=== PATIENT | male | born 1985 | race American Indian/Alaskan Native ===

== ENCOUNTER 2018-12-19 13:30 | Emergency (ER) | payer OTHER ==
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
[2018-12-19 13:36] VITALS: BP 141/89; PULSE 62
[2018-12-19] MEDS: Ondansetron 4 MG/2 ML SDV IV ONE ×2 (13:47→14:23)
[2018-12-19] MEDS: HYDROmorphone 1 MG/ML Syringe IVPUSH ONE (13:47)
[2018-12-19] MEDS: Famotidine 20 MG/2 ML SDV IVPUSH ONE (13:47)
[2018-12-19] MEDS: Sodium Chloride 0.9% 1,000 ML IV ONE (13:48)
[2018-12-19] MEDS: Metoclopramide 10 MG/2 ML SDV IVPUSH ONE (13:58)
[2018-12-19] MEDS: diphenhydrAMINE 50 MG/ML SDV IVPUSH ONE (13:58)
[2018-12-19 14:12] LABS: ANION GAP 14.9; CHLORIDE,CL 103 mmol/L (101-111); SODIUM,NA 136 mmol/L (135-145)
[2018-12-19] MEDS: LORazepam 2 MG/ML Syringe IVPUSH ONE (14:21)
== END 2018-12-19 16:50 | disposition home or self-care (01) ==
LOC: DL.ED 13:30
DX: K22.8 Other specified diseases of esophagus (principal); K29.00 Acute gastritis without bleeding; I10 Essential (primary) hypertension; E11.9 Type 2 diabetes mellitus without complications; Z79.4 Long term (current) use of insulin; Z79.899 Other long term (current) drug therapy
CPT/HCPCS: 36415; 71045; 80053; 80305; 80320; 81001; 82009; 82150; 82962; 83690; 84484; 85025; 85610; 85730; 93005; 96361; 96374; 96375; 96376; 99285; J1170; J1200; J2060; J2405; J2765; J3490; J7030; 93010; 99284; G0480

== ENCOUNTER 2019-03-13 14:08 | Emergency (ER) | payer OTHER ==
[2019-03-13] MEDS ORDERED: HYDROmorphone 1 MG/ML Syringe IVPUSH ONE (14:15)
[2019-03-13] MEDS ORDERED: Ondansetron 4 MG/2 ML SDV IV ONE ×2 (14:15→14:36)
[2019-03-13] MEDS ORDERED: Sodium Chloride 0.9% 1,000 ML IV ONE (14:15)
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
[2019-03-13] MEDS ORDERED: Sodium Chloride 0.9% 10 ML Syringe FLUSH PRN (14:16)
[2019-03-13] MEDS ORDERED: Famotidine 20 MG/2 ML SDV IVPUSH ONE (14:27)
[2019-03-13 14:56] VITALS: BP 133/68; PULSE 93
[2019-03-13 15:11] LABS: ANION GAP 18.4; CHLORIDE,CL 93 mmol/L (101-111); SODIUM,NA 127 mmol/L (135-145)
[2019-03-13] MEDS ORDERED: Insulin Regular, Human 100 Units/ML 3 ML Vial SUBCUT ONE (15:14)
[2019-03-13] MEDS ORDERED: HYDROmorphone 0.5 MG/0.5 ML Syringe SUBCUT ONE (16:09)
[2019-03-13] MEDS ORDERED: Promethazine 25 MG/ML SDV IM ONE (16:09)
== END 2019-03-13 16:37 | disposition home or self-care (01) ==
LOC: DL.ED 14:08
DX: R10.13 Epigastric pain (principal); L73.9 Follicular disorder, unspecified; B96.89 Other specified bacterial agents as the cause of diseases classified elsewhere; R11.2 Nausea with vomiting, unspecified; E11.65 Type 2 diabetes mellitus with hyperglycemia; I10 Essential (primary) hypertension; E11.9 Type 2 diabetes mellitus without complications; Z79.4 Long term (current) use of insulin; Z79.899 Other long term (current) drug therapy
CPT/HCPCS: 36415; 80053; 80305-QW; 81001; 82009; 82150; 82962; 83605; 83690; 85025; 96361; 96372; 96374; 96375; 99284-25; J1170; J1815-GY; J2405; J2550; J3490; J7030

== ENCOUNTER 2019-03-14 16:02 | Emergency (ER) | payer OTHER ==
[2019-03-14] MEDS ORDERED: Ondansetron 4 MG/2 ML SDV IV ONE (16:10)
[2019-03-14] MEDS ORDERED: Sodium Chloride 0.9% 10 ML Syringe FLUSH PRN (16:10)
[2019-03-14] MEDS ORDERED: diphenhydrAMINE 50 MG/ML SDV IVPUSH ONE (16:10)
[2019-03-14] MEDS ORDERED: Sodium Chloride 0.9% 1,000 ML IV ONE ×2 (16:10→18:46)
[2019-03-14] MEDS ORDERED: LORazepam 2 MG/ML SDV IVPUSH ONE (16:10)
[2019-03-14] MEDS ORDERED: Dicyclomine 20 MG/2 ML SDV IM ONE (16:12)
[2019-03-14 16:45] LABS: CHLORIDE,CL 97 mmol/L (101-111); SODIUM,NA 130 mmol/L (135-145)
[2019-03-14] MEDS ORDERED: Insulin Regular, Human 100 Units/ML 3 ML Vial SUBCUT ONE (17:07)
[2019-03-14] MEDS ORDERED: Iopamidol 612 MG/ML 100 ML Bottle IVPUSH ONE (18:46)
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
[2019-03-14 19:29] LABS: BASE EXCESS VENOUS -2.4 mmol/l ((-2)-(+3)); BICARBONATE,VENOUS 20 mmol/l (19-25); O2 DELIVERY DEVICE ROOM AIR; O2 SATURATION VENOUS 66.6 % (60-80); PCO2 VENOUS 28 mmHg (41-51); PH,VENOUS 7.46 (7.31-7.41); PO2 VENOUS 38 mmHg (35-42)
[2019-03-14] MEDS ORDERED: Haloperidol Lactate 5 MG/ML SDV IVPUSH ONE ×2 (19:58→21:08)
[2019-03-14] MEDS ORDERED: NS + KCl 20mEq/L 1,000 ML IV SCH (20:15)
[2019-03-14 20:21] VITALS: BP 158/89; PULSE 79
[2019-03-14 20:43] LABS: ANION GAP 13.7; CHLORIDE,CL 104 mmol/L (101-111); SODIUM,NA 134 mmol/L (135-145)
[2019-03-14] MEDS ORDERED: Sodium Chloride 0.9% with KCl 1,000 ML IV SCH (21:00)
== END 2019-03-14 21:26 ==
LOC: DL.ED 16:02
DX: E11.10 Type 2 diabetes mellitus with ketoacidosis without coma (principal); I10 Essential (primary) hypertension; Z79.4 Long term (current) use of insulin
CPT/HCPCS: 36415; 74177; 80048; 80053; 80305; 80320; 81001; 82009; 82150; 82803; 82962; 83605; 83690; 83930; 85025; 96361; 96365; 96372; 96375; 96376; 99285; J0500; J1200; J1630; J1815; J2060; J2405; J3480; J7030; Q9967; 99284; G0480

== ENCOUNTER 2019-05-22 22:17 | Emergency (ER) | payer MEDICAID, OTHER ==
[~2019-05-22 22:17] MED LIST: Metoclopramide 10 MG/2 ML SDV IVPUSH ONE; Sodium Chloride 0.9% 1,000 ML IV ONE
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
[2019-05-22 22:49] LABS: ALLEN TEST PERFORMED; BASE EXCESS ARTERIAL -12 mmol/L ((-2)-(+3)); BICARBONATE,ARTERIAL 12.6 mmol/L (22-26); O2 DELIVERY DEVICE ROOM AIR; O2 SATURATION ARTERIAL 97 % (95-100); PCO2 ARTERIAL 27 mmHg (35-45); PO2 ARTERIAL 93 mmHg (70-100)
[2019-05-22 22:50] LABS: ACETAMINOPHEN 0 ug/mL (10-30 (Therapeutic))
[2019-05-22 22:58] LABS: ANION GAP 29.4 mEq/L (7-13)
[2019-05-22] MEDS ORDERED: Sodium Chloride 0.9% 1,000 ML IV ONE (23:18)
[2019-05-22] MEDS ORDERED: Pantoprazole 40 MG Vial IVPUSH ONE (23:35)
[2019-05-23] MEDS ORDERED: HYDROmorphone 0.5 MG/0.5 ML Syringe IVPUSH ONE (00:11)
[2019-05-23 00:12] VITALS: BP 160/99; PULSE 101
== END 2019-05-23 01:10 ==
LOC: DL.ED 22:17
DX: E11.10 Type 2 diabetes mellitus with ketoacidosis without coma (principal); K92.2 Gastrointestinal hemorrhage, unspecified; I10 Essential (primary) hypertension; Z77.22 Contact with and (suspected) exposure to environmental tobacco smoke (acute) (chronic); Z79.4 Long term (current) use of insulin; Z79.899 Other long term (current) drug therapy
CPT/HCPCS: 36415; 36600; 74176; 80053; 80305-QW; 80307; 81001; 82009; 82150; 82271; 82803; 82962; 83605; 83690; 85025; 87040; 87804; 96361; 96374; 96375; 99285-25; C9113; J1170; J1815-GY; J2765; J7030; J7050

== ENCOUNTER 2019-12-19 23:48 | Emergency (ER) | payer MEDICAID, OTHER ==
[2019-12-19] MEDS ORDERED: Sodium Chloride 0.9% 1,000 ML IV ONE (23:55)
[2019-12-19] MEDS ORDERED: Ondansetron 4 MG/2 ML SDV IVPUSH ONE (23:55)
[2019-12-20 00:01] VITALS: BP 131/102; PULSE 84
[2019-12-20] MEDS ORDERED: Insulin Regular, Human 100 Units/ML 3 ML Vial IV ONE (00:09)
[2019-12-20] MEDS ORDERED: Glucagon,Human Recombinant 1 MG Vial IM PRN (00:09)
[2019-12-20] MEDS ORDERED: 50% Dextrose in Water 50 ML Syringe IV PRN (00:09)
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
[2019-12-20 00:35] LABS: ANION GAP 13.7 mEq/L (7-13); CHLORIDE,CL 89 mmol/L (98-107); SODIUM,NA 126 mmol/L (136-145)
[2019-12-20] MEDS ORDERED: Promethazine 25 MG/ML SDV IM ONE (00:51)
[2019-12-20] MEDS ORDERED: HYDROmorphone 0.5 MG/0.5 ML Syringe IVPUSH ONE (00:52)
[2019-12-20] MEDS ORDERED: Sodium Chloride 0.9% 1,000 ML IV ONE ×2 (01:53→03:06)
[2019-12-20 03:57] LABS: ANION GAP 8.9 mEq/L (7-13); CHLORIDE,CL 102 mmol/L (98-107); SODIUM,NA 138 mmol/L (136-145)
[2019-12-20 06:34] LABS: ANION GAP 13.3 mEq/L (7-13); CHLORIDE,CL 108 mmol/L (98-107); SODIUM,NA 142 mmol/L (136-145)
== END 2019-12-20 07:25 | disposition home or self-care (01) ==
LOC: DL.ED 23:48
DX: R11.2 Nausea with vomiting, unspecified (principal); F12.90 Cannabis use, unspecified, uncomplicated; E11.65 Type 2 diabetes mellitus with hyperglycemia; E11.10 Type 2 diabetes mellitus with ketoacidosis without coma; Z79.4 Long term (current) use of insulin
CPT/HCPCS: 36415; 80048; 80053; 80305; 80307; 82009; 82962; 83605; 85025; 93005; 96372; 96374; 96375; 99285; J1170; J1815; J2405; J2550; J7030

== ENCOUNTER 2019-12-25 04:37 | Emergency (ER) | payer MEDICAID, OTHER ==
[2019-12-25] MEDS ORDERED: Ondansetron 4 MG/2 ML SDV IVPUSH ONE (04:45)
[2019-12-25] MEDS ORDERED: Sodium Chloride 0.9% 1,000 ML IV ONE ×2 (04:45→07:23)
[2019-12-25 04:46] VITALS: BP 141/79
[2019-12-25] MEDS ORDERED: 50% Dextrose in Water 50 ML Syringe IV PRN ×2 (05:09→09:14)
[2019-12-25] MEDS ORDERED: Glucagon,Human Recombinant 1 MG Vial IM PRN ×2 (05:09→09:14)
[2019-12-25] MEDS ORDERED: Insulin Regular, Human 100 Units/ML 3 ML Vial IV ONE (05:09)
[2019-12-25 05:27] LABS: ANION GAP 22.1 mEq/L (7-13); CHLORIDE,CL 93 mmol/L (98-107); SODIUM,NA 132 mmol/L (136-145)
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
[2019-12-25 08:56] LABS: CHLORIDE,CL 100 mmol/L (98-107); SODIUM,NA 136 mmol/L (136-145)
[2019-12-25] MEDS ORDERED: Insulin Regular, Human 100 Units/ML 3 ML Vial SUBCUT ONE (09:14)
[2019-12-25 09:39] VITALS: PULSE 79
== END 2019-12-25 09:34 | disposition home or self-care (01) ==
LOC: DL.ED 04:37
DX: E10.10 Type 1 diabetes mellitus with ketoacidosis without coma (principal); E10.65 Type 1 diabetes mellitus with hyperglycemia; I10 Essential (primary) hypertension; F17.210 Nicotine dependence, cigarettes, uncomplicated; Z79.899 Other long term (current) drug therapy
CPT/HCPCS: 36415; 80048; 80053; 82009; 82150; 82962; 83605; 83690; 83735; 85025; 96374; 99284; J1815; J2405; J7030

== ENCOUNTER 2020-01-10 14:10 | Inpatient (IN) | payer MEDICAID, OTHER ==
[2020-01-10] MEDS ORDERED: Sodium Chloride 0.9% 10 ML Syringe FLUSH PRN (15:53)
[2020-01-10] MEDS ORDERED: Sodium Chloride 0.9% 1,000 ML IV ONE (15:54)
[2020-01-10] MEDS ORDERED: Ondansetron 4 MG/2 ML SDV IVPUSH ONE (15:54)
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
[2020-01-10 16:12] LABS: BASE EXCESS VENOUS 0.1 mmol/l ((-2)-(+3)); BICARBONATE,VENOUS 21 mmol/l (19-25); O2 DELIVERY DEVICE ROOM AIR; O2 SATURATION VENOUS 64.7 % (60-80); PCO2 VENOUS 26 mmHg (41-51); PH,VENOUS 7.52 (7.31-7.41); PO2 VENOUS 36 mmHg (35-42)
[2020-01-10 16:35] LABS: ANION GAP 19.8 mEq/L (7-13); CHLORIDE,CL 95 mmol/L (98-107); SODIUM,NA 132 mmol/L (136-145)
[2020-01-10] MEDS ORDERED: Promethazine 25 MG/ML SDV IM ONE (17:03)
[2020-01-10] MEDS ORDERED: Morphine 2 MG/ML SYRINGE IVPUSH PRN (18:27)
[2020-01-10] MEDS ORDERED: Acetaminophen 325 MG Tab PO PRN (18:27)
[2020-01-10] MEDS ORDERED: Ondansetron 4 MG Tab.DIS PO PRN (18:27)
[2020-01-10] MEDS ORDERED: Glucagon,Human Recombinant 1 MG Vial IM PRN (18:32)
[2020-01-10] MEDS ORDERED: 50% Dextrose in Water 50 ML Syringe IV PRN (18:32)
[2020-01-10] MEDS: Sodium Chloride 0.9% 1,000 ML IV SCH (18:55)
[2020-01-10] MEDS: oxyCODONE 5 MG Tab PO PRN (19:14)
--- NOTE | 2020-01-10 20:11 | HP ---
CHIEF COMPLAINT: Abdominal pain. HISTORY OF PRESENT ILLNESS: The patient is a 34-year-old male who was admitted through the emergency room because of abdominal pain and vomiting, which started the day after Thanksgiving 2 days ago. He has not been able to keep anything down since that time and he is complaining of abdominal pain, that he cannot stand it anymore. He is also diabetic, but has not checked his blood sugar for the last couple of weeks because his glucometer machine was broken. In the emergency room, the patient's blood sugar is 400 and lactic acid is 3. Sodium is 132 and chloride is 95. Because of the above and abdominal pain, the patient was admitted for further evaluation and management. PAST MEDICAL HISTORY: Remarkable for type 1 diabetes mellitus, history of hypertension, gastroesophageal reflux disease, history of kidney stone. FAMILY HISTORY: Noncontributory. SOCIAL HISTORY: The patient smokes cigarettes on a daily basis and admits to smoking marijuana and hash on occasions. REVIEW OF SYSTEMS: The patient denies any fever, chills, chest pain, shortness of breath, orthopnea, PND, nor any other complaints. HOME MEDICATIONS: Metformin 1 g b.i.d., ibuprofen, Levemir 30 units b.i.d., and lisinopril 10 mg daily. ALLERGIES: No known drug allergies. PHYSICAL EXAMINATION: General: The patient is alert, in mild distress from the abdominal pain. Vital Signs: Blood pressure is 147/86, pulse of 93, respirations of 16, temperature of 97.6, saturation is 100% on room air. SHEENT: Normocephalic. There are pink palpebral conjunctivae. Sclerae anicteric. No JVD. No lymphadenopathy. Neck: Supple. Heart: Regular rate and rhythm. Normal S1 and S2. No gallops. No rubs. Lungs: Equal bilaterally. No crackles, no wheezing. Abdomen: Soft. There is [id number] direct tenderness. No rebound. Bowel sounds positive. Extremities: Negative for any significant pedal edema. No calf tenderness. LABORATORY WORKUP: CBC: WBC 8.6, hemoglobin is 15.8, hematocrit is 43.8, platelets are 384. Urinalysis is remarkable for protein of 300 mg/dL and 500 of glucose and 80 of ketones. Urine drug screen is positive for marijuana, otherwise negative. Comp panel: Sodium is 132, chloride of 95, BUN of 36, creatinine is 1.29, glucose is 400, ALT of 215. The rest of the panel unremarkable, and lactic acid is 3. ADMITTING DIAGNOSES: 1. Uncontrolled diabetes mellitus. 2. Abdominal pain, possibly gastritis. 3. Hypertension. 4. Dehydration. TREATMENT PLAN: The patient is admitted to Acute Care General Medicine Floor. He will be started on IV fluids. He will be on IV Protonix. He will be on DVT prophylaxis and will be resumed on his insulin (Levemir as at home) and will also be on sliding scale insulin, and amylase and lipase were also sent. The patient is a full code. [facility] /[id number]
[2020-01-10] MEDS: Insulin Glarg,Human.Rec.Analog 100 Unit/ML SUBCUT SCH (20:43)
[2020-01-10] MEDS: Pantoprazole 40 MG Vial IVPUSH SCH (20:45)
[2020-01-11] MEDS: Sodium Chloride 0.9% 1,000 ML IV SCH ×3 (02:56→22:34)
[2020-01-11 06:34] LABS: ANION GAP 13.4 mEq/L (7-13); CHLORIDE,CL 102 mmol/L (98-107); SODIUM,NA 138 mmol/L (136-145)
[2020-01-11] MEDS: Insulin Lispro 100 Units/ML 3 ML Vial SUBCUT SCH ×3 (09:11→17:06)
[2020-01-11] MEDS: Nicotine 21 MG/24 Hr Patch TRDERM SCH (09:14)
[2020-01-11] MEDS: Enoxaparin 40 MG/0.4 ML Syringe SUBCUT SCH ×2 (09:16→09:25)
[2020-01-11] MEDS: Lisinopril 10 MG Tab PO SCH (09:16)
[2020-01-11] MEDS: Pantoprazole 40 MG Vial IVPUSH SCH ×2 (09:17→20:23)
[2020-01-11] MEDS: Docusate Sodium 100 MG Cap PO PRN (09:17)
[2020-01-11] MEDS: oxyCODONE 5 MG Tab PO PRN ×3 (09:17→20:21)
[2020-01-11] MEDS: Insulin Glarg,Human.Rec.Analog 100 Unit/ML SUBCUT SCH ×2 (10:44→21:23)
--- NOTE | 2020-01-11 10:51 | PN ---
DATE: 01/11/2020 SUBJECTIVE: The patient is a 34-year-old male who was admitted with uncontrolled diabetes mellitus and abdominal pain and dehydration. The patient this morning is feeling slightly better, although he is still complaining of some abdominal pain, but he denies any chest pain, shortness of breath, fever, chills, nor any other complaints. The patient is much more alert. LABORATORY DATA: Lab workup this morning, CBC; WBC 8.2, hemoglobin is 14.4, hematocrit 41.3, platelet is 346. Glucose is 275 (improvement), AST is 39, ALT is 161. The rest of the panel unremarkable. OBJECTIVE: Vital Signs: Blood pressure is 138/90, pulse of 65, respiration of 20, and saturation is 99%. SHEENT: Normocephalic. There are pink palpebral conjunctivae. Sclerae anicteric. Neck: No JVD. No lymphadenopathy. Heart: Regular rate and rhythm. Normal S1 and S2. No gallops. No rubs. Lungs: Equal bilaterally. No crackles, no wheezing. Abdomen: Soft. There is mild direct tenderness on the epigastric area. No rebound. Bowel sounds positive. Extremities: Negative for any pedal edema. No calf tenderness. MEDICATIONS: Reviewed. PLAN: We will continue with his present management. I am going to restart his lisinopril as blood pressure is running slightly elevated. I am also going to start him on a consistent carbohydrate diet. [facility] /[id number]
[2020-01-12] MEDS: oxyCODONE 5 MG Tab PO PRN (05:13)
[2020-01-12] MEDS: Sodium Chloride 0.9% 1,000 ML IV SCH (06:14)
[2020-01-12] MEDS: Lisinopril 10 MG Tab PO SCH (09:24)
[2020-01-12 09:25] VITALS: BP 133/80
[2020-01-12] MEDS: Docusate Sodium 100 MG Cap PO PRN (09:25)
[2020-01-12] MEDS: Insulin Lispro 100 Units/ML 3 ML Vial SUBCUT SCH (09:31)
[2020-01-12] MEDS: Nicotine 21 MG/24 Hr Patch TRDERM SCH (09:32)
[2020-01-12] MEDS: Pantoprazole 40 MG Vial IVPUSH SCH (09:32)
[2020-01-12] MEDS: Insulin Glarg,Human.Rec.Analog 100 Unit/ML SUBCUT SCH (09:32)
[2020-01-12 09:40] VITALS: PULSE 74
--- NOTE | 2020-01-12 10:28 | PN ---
DATE: 01/12/2020 SUBJECTIVE: The patient continues to do well, still complaining of some mild epigastric discomfort, but appetite has been good and blood sugar is much better. The patient denies any chest pain, shortness of breath, fever, chills, nor any other significant complaints. OBJECTIVE: Vital Signs: Blood pressure is 130/84, pulse of 86, respirations 20, temperature of 98.5, saturation is 100% on room air. Heart: Regular rate and rhythm. Normal S1 and S2. No gallops. No rubs. Lungs: Equal bilaterally. No crackles. No wheezing. Abdomen: Soft. There is mild direct tenderness on the epigastric area. No rebound. Bowel sounds positive. Extremities: Negative for any pedal edema. No calf tenderness. PLAN: We will discharge the patient home today and he is going to follow up with [facility] in 1 week. [facility] /[id number]
[2020-01-12] MEDS: Enoxaparin 40 MG/0.4 ML Syringe SUBCUT SCH (10:43)
--- NOTE | 2020-01-12 11:44 | DISCH ---
FINAL DIAGNOSES: 1. Uncontrolled diabetes mellitus. 2. Dehydration. 3. Abdominal pain, possibly secondary to gastritis. 4. Hypertension. BRIEF HISTORY OF PRESENT ILLNESS: The patient is a 34-year-old male who was admitted because of abdominal pain, vomiting, and uncontrolled diabetes mellitus. PERTINENT LAB, X-RAY, AND OTHER TESTS ON ADMISSION: Blood sugar on admission is 400. Lactic acid 3. Sodium is 132, chloride is 95. Lab workup on 01/11/2020, WBC is 8.2, hemoglobin is 14.4, hematocrit is 41.3, platelet is 346. Comp panel: Glucose 275, anion gap is 13.4, BUN is 26. AST is 39, ALT is 161. The rest of the panel unremarkable. HOSPITAL COURSE: The patient was admitted to general medicine floor. He was started on IV fluids and was also resumed on his glargine insulin 30 units b.i.d. and was placed on Humalog sliding scale. He was also placed on DVT prophylaxis with Lovenox and was also started on Protonix IV for the abdominal pain. The patient did well during the hospitalization and blood sugar slowly improved as well as his abdominal pain and the rest of the hospital course was unremarkable and he was subsequently discharged. CONDITION ON DISCHARGE: Improved. FOLLOWUP: He is going to follow up with [facility] in 1 week with comp panel, A1c, and lipid profile. MEDICATIONS ON DISCHARGE: Metformin 1 g b.i.d., lisinopril 10 mg daily, Levemir 30 units b.i.d., and Protonix 40 mg p.o. daily. [facility] /[id number]
== END 2020-01-12 11:55 | disposition home or self-care (01) | DRG 392 ==
LOC: DL.ED 14:10 → DL.MS 18:21
PROVIDERS: ADMIT Internal Medicine; ATTEND Internal Medicine
DX: K29.70 Gastritis, unspecified, without bleeding (principal); E11.65 Type 2 diabetes mellitus with hyperglycemia; E86.0 Dehydration; I10 Essential (primary) hypertension; K21.9 Gastro-esophageal reflux disease without esophagitis; F17.210 Nicotine dependence, cigarettes, uncomplicated; H54.7 Unspecified visual loss; G89.29 Other chronic pain; M54.9 Dorsalgia, unspecified; F41.9 Anxiety disorder, unspecified; Z79.4 Long term (current) use of insulin; Z87.442 Personal history of urinary calculi; Z79.899 Other long term (current) drug therapy; Z20.828 Contact with and (suspected) exposure to other viral communicable diseases
CPT/HCPCS: 36415; 80053; 80305-QW; 81001; 82150; 82803; 82962; 83605; 83690; 85025; 96372; 96374; 99283; 99284-25; A9270-GY; C9113; J1650; J1815-GY; J2405; J2550; J7030; U0002

== ENCOUNTER 2020-01-20 10:40 | Emergency (ER) | payer MEDICAID ==
[2020-01-20 10:56] VITALS: BP 150/98; PULSE 113
[2020-01-20] MEDS ORDERED: Sodium Chloride 0.9% 1,000 ML IV ONE ×2 (11:00→12:33)
[2020-01-20] MEDS ORDERED: Ondansetron 4 MG/2 ML SDV IVPUSH ONE (11:31)
[2020-01-20 11:36] LABS: CHLORIDE,CL 96 mmol/L (98-107); SODIUM,NA 134 mmol/L (136-145)
[2020-01-20] MEDS ORDERED: HYDROmorphone 1 MG/ML Syringe IVPUSH ONE (11:39)
[2020-01-20] MEDS ORDERED: Insulin Lispro 100 Units/ML 3 ML Vial SUBCUT ONE (11:42)
[2020-01-20] MEDS ORDERED: Magnesium Sulfate/Water 2 GM/50 ML BAG IV ONE ×2 (11:42→12:30)
[2020-01-20] MEDS ORDERED: 50% Dextrose in Water 50 ML Syringe IV PRN (11:42)
[2020-01-20] MEDS ORDERED: Glucagon,Human Recombinant 1 MG Vial IM PRN (11:42)
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
[2020-01-20] MEDS ORDERED: Iopamidol 612 MG/ML 100 ML Bottle IVPUSH ONE (12:36)
--- NOTE | 2020-01-20 13:08 | CT ---
EXAMINATION: Abdomen Pelvis w Cont SEX: Male AGE: 34 years CLINICAL HISTORY: 34-year-old hypertensive, diabetic male smoker with right upper quadrant pain and ELEVATED LFTS. Serum WBC is 13,400 and lactate acid is 4.6. Upper abdominal pain. Scan technique: Volume acquisition of data from the abdomen and pelvis obtained without oral contrast but during intravenous administration 75 cc nonionic Isovue contrast 3 cc/s via injector while patient was lying supine on the Siemens multislice scanner [place], [place]. All data archived in the PACS system for storage, reformatting axial/sagittal/coronal planes and study. Interpretation: 1. Distended gallbladder and RUQ is inhomogeneously dense and may have noncalcified intraluminal stones. Clinical? Suggest gallbladder ultrasound. 2. No pericystic fluid or signs of gallbladder wall inflammation. Normal liver without cystic or solid intrahepatic mass and specifically no dilatation of intra or extrahepatic biliary ducts. Stomach spleen and pancreas unremarkable. Normal adrenal glands and kidneys. Symmetrically distended normal unenhanced bladder. 3. No abdominal or pelvic mass lesion. No ventral wall hernias or signs of mechanical bowel obstruction. No mesenteric or retroperitoneal lymphadenopathy. No ascites or free intraperitoneal air. 4. Lung bases clear. Normal cardiac silhouette. No effusion. Normal caliber abdominal aorta. 5. Chronic disc disease T10-11 level with associated spondylosis. CONCLUSION: Suspicious appearance gallbladder (see above). Ultrasound suggested. CT scan abdomen/pelvis otherwise unremarkable.
== END 2020-01-20 14:53 | disposition home or self-care (01) ==
LOC: DL.ED 10:40
DX: R10.13 Epigastric pain (principal); E11.65 Type 2 diabetes mellitus with hyperglycemia; E83.42 Hypomagnesemia; R11.2 Nausea with vomiting, unspecified; K82.8 Other specified diseases of gallbladder; Z79.4 Long term (current) use of insulin; Z79.899 Other long term (current) drug therapy
CPT/HCPCS: 36415; 74177; 80053; 80305; 80307; 81001; 82009; 82150; 82962; 83605; 83690; 83735; 85025; 96365; 96375; 99284; J1170; J1815; J2405; J3475; J7030; Q9967

== ENCOUNTER 2020-01-22 12:44 | Emergency (ER) | payer MEDICAID ==
[2020-01-22 12:58] VITALS: BP 162/90; PULSE 97
[2020-01-22] MEDS ORDERED: Ondansetron 4 MG/2 ML SDV IVPUSH ONE (13:00)
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
[2020-01-22 13:38] LABS: ANION GAP 16.2 mEq/L (7-13); CHLORIDE,CL 100 mmol/L (98-107); SODIUM,NA 134 mmol/L (136-145)
--- NOTE | 2020-01-22 14:28 | US ---
PROCEDURE INFORMATION: Exam: US Abdomen, Limited; Right Upper Quadrant Exam date and time: 01/22/2020 1:59 PM Age: 34 years old Clinical indication: Abdominal pain; Acute; Additional info: CT shows possible gallbladder disease TECHNIQUE: Imaging protocol: US abdomen. Real time ultrasound with image documentation. Limited exam focused on the right upper quadrant. COMPARISON: CT Abdomen Pelvis w Cont 01/20/2020 12:22 PM FINDINGS: Liver: Normal. No masses. Gallbladder: Mild gallbladder distension. No gallstones. There is no gallbladder wall thickening. Common bile duct: Normal. No stones. No dilation. Pancreas: Pancreas is not well seen due to overlying bowel gas. Right kidney: Normal. No mass. No hydronephrosis. IMPRESSION: 1. Mild gallbladder distention. 2. No evidence of cholelithiasis or cholecystitis.
[2020-01-22] MEDS ORDERED: Ketorolac 30 MG/ML SDV IVPUSH ONE (14:36)
[2020-01-22] MEDS ORDERED: Haloperidol Lactate 5 MG/ML SDV IM ONE (14:43)
== END 2020-01-22 15:30 | disposition home or self-care (01) ==
LOC: DL.ED 12:44
DX: E11.65 Type 2 diabetes mellitus with hyperglycemia (principal); R11.2 Nausea with vomiting, unspecified; F12.90 Cannabis use, unspecified, uncomplicated; K21.9 Gastro-esophageal reflux disease without esophagitis; I10 Essential (primary) hypertension; Z79.4 Long term (current) use of insulin; Z79.899 Other long term (current) drug therapy
CPT/HCPCS: 36415; 76705; 80053; 80305-QW; 80307; 81001; 82150; 83605; 83690; 83735; 85025; 96372; 96374; 96375; 99284; 99285-25; J1630; J1885; J2405

== ENCOUNTER 2020-03-29 18:02 | Observation (INO) | payer MEDICAID ==
[2020-03-29] MEDS: Sodium Chloride 0.9% 1,000 ML IV ONE ×2 (18:35→22:58)
[2020-03-29 18:39] LABS: ANION GAP 25.4 mEq/L (7-13); CHLORIDE,CL 95 mmol/L (98-107); SODIUM,NA 134 mmol/L (136-145)
[2020-03-29] MEDS ORDERED: Iopamidol 612 MG/ML 100 ML Bottle IVPUSH ONE (19:06)
[2020-03-29] MEDS ORDERED: Ondansetron 4 MG/2 ML SDV IVPUSH ONE (19:09)
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
[2020-03-29] MEDS ORDERED: Famotidine 20 MG/2 ML SDV IVPUSH ONE (19:22)
[2020-03-29] MEDS ORDERED: Promethazine 25 MG/ML SDV IM PRN (19:44)
[2020-03-29] MEDS ORDERED: Insulin Regular, Human 100 Units/ML 3 ML Vial IV ONE ×2 (20:13→23:04)
[2020-03-29] MEDS ORDERED: Glucagon,Human Recombinant 1 MG Vial IM PRN ×2 (20:13→23:04)
[2020-03-29] MEDS ORDERED: 50% Dextrose in Water 50 ML Syringe IV PRN ×2 (20:13→23:04)
[2020-03-29 20:16] LABS: BENZODIAZEPINE,URINE NEGATIVE (NEGATIVE); MDMA (ECSTASY), URINE NEGATIVE (NEGATIVE); METHADONE,URINE NEGATIVE (NEGATIVE); METHAMPHETAMINES,URINE POSITIVE (NEGATIVE); OPIATES,URINE NEGATIVE (NEGATIVE)
[2020-03-29 20:17] LABS: AMPHETAMINES,URINE POSITIVE (NEGATIVE); BARBITURATES,URINE NEGATIVE (NEGATIVE); OXYCODONE,URINE POSITIVE (NEGATIVE); PHENCYCLIDINE,URINE NEGATIVE (NEGATIVE); TCA,URINE NEGATIVE (NEGATIVE)
[2020-03-29] MEDS ORDERED: GI Cocktail Oral Solution 30 ML PO ONE (21:11)
[2020-03-29] MEDS ORDERED: Metoclopramide 10 MG/2 ML SDV IVPUSH ONE (22:52)
[2020-03-29] MEDS ORDERED: Sodium Chloride 0.9% 1,000 ML IV ONE (23:00)
[2020-03-29 23:28] LABS: BASE EXCESS ARTERIAL -3 mmol/L ((-2)-(+3)); BICARBONATE,ARTERIAL 20.1 mmol/L (22-26); O2 DELIVERY DEVICE ROOM AIR; O2 SATURATION ARTERIAL 96 % (95-100); PCO2 ARTERIAL 33 mmHg (35-45); PO2 ARTERIAL 90 mmHg (70-100)
[2020-03-29 23:30] LABS: ALLEN TEST pos; O2 FLOW RATE 2
[2020-03-30] MEDS ORDERED: Glucagon,Human Recombinant 1 MG Vial IM PRN ×3 (00:43→14:47)
[2020-03-30] MEDS ORDERED: 50% Dextrose in Water 50 ML Syringe IV PRN ×3 (00:43→14:47)
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
[2020-03-30] MEDS ORDERED: Insulin Regular, Human 100 Units/ML 3 ML Vial ONE (00:53)
[2020-03-30] MEDS: Sodium Chloride 0.9% 1,000 ML IV SCH ×2 (01:05→07:36)
[2020-03-30] MEDS ORDERED: Flumazenil 0.1 MG/ML 5 ML MDV IVPUSH PRN (01:15)
[2020-03-30] MEDS ORDERED: LORazepam 2 MG/ML SDV IVPUSH PRN (01:15)
[2020-03-30] MEDS ORDERED: Morphine 2 MG/ML SYRINGE IVPUSH ONE (01:31)
[2020-03-30] MEDS: Piperacillin/Tazobactam 3.375 GM in Sodium Chloride 0.9% 100 ML IV SCH ×4 (01:40→18:15)
[2020-03-30] MEDS ORDERED: cloNIDine 0.1 MG Tab PO ONE (02:00)
[2020-03-30] MEDS ORDERED: hydrOXYzine HCl 25 MG Tab PO ONE (02:00)
[2020-03-30] MEDS ORDERED: Insulin Regular, Human 100 Units/ML 3 ML Vial IV ONE (02:05)
[2020-03-30] MEDS: Acetaminophen 325 MG Tab PO PRN ×2 (02:14→13:08)
--- NOTE | 2020-03-30 02:25 | CR ---
PROCEDURE INFORMATION: Exam: XR Chest, 1 View Exam date and time: 03/30/2020 1:58 AM Age: 34 years old Clinical indication: Other: Sepsis TECHNIQUE: Imaging protocol: XR of the chest Views: 1 view. COMPARISON: CR Chest 1V Frontal 12/19/2018 1:49 PM FINDINGS: Lungs: Unremarkable. No consolidation. Pleural spaces: Unremarkable. No pleural effusion. No pneumothorax. Heart/Mediastinum: Unremarkable. No cardiomegaly. Bones/joints: Unremarkable. IMPRESSION: No acute findings.
[2020-03-30] MEDS ORDERED: hydrOXYzine HCl 25 MG Tab PO SCH (06:00)
[2020-03-30] MEDS: fentaNYL 100 MCG/2 ML SDV IVPUSH PRN ×2 (08:05→22:08)
[2020-03-30] MEDS: Heparin Sodium 5,000 Units/ML Vial SUBCUT SCH ×2 (08:06→23:17)
[2020-03-30] MEDS: Insulin Lispro 100 Units/ML 3 ML Vial SUBCUT SCH ×4 (08:07→23:07)
[2020-03-30] MEDS: hydrOXYzine HCl 25 MG Tab PO SCH ×2 (11:44→18:14)
[2020-03-30] MEDS: Ondansetron 4 MG/2 ML SDV IVPUSH PRN ×2 (13:09→22:10)
[2020-03-30] MEDS ORDERED: cloNIDine 0.1 MG Tab PO SCH (14:00)
[2020-03-30] MEDS: cloNIDine 0.1 MG Tab PO SCH (14:21)
--- NOTE | 2020-03-30 14:41 | PCM.PN ---
- General Info Date of Service: 03/30/20 Admission Dx/Problem (Free Text): t Subjective Update: Patient doing okay. He reports feeling better this morning. Functional Status: Reports: Pain Controlled - Review of Systems General: Reports: No Symptoms HEENT: Reports: No Symptoms Pulmonary: Reports: No Symptoms Cardiovascular: Reports: No Symptoms Gastrointestinal: Reports: No Symptoms Genitourinary: Reports: No Symptoms Musculoskeletal: Reports: No Symptoms Skin: Reports: No Symptoms Neurological: Reports: No Symptoms Psychiatric: Reports: No Symptoms - Patient Data Vitals - Most Recent: Last Vital Signs Temp 98.8 F 03/30/20 12:51 Pulse 64 03/30/20 12:51 Resp 20 03/30/20 12:51 BP 148/78 H 03/30/20 14:35 Pulse Ox 99 03/30/20 12:51 Weight - Most Recent: 156 lb I&O - Last 24 Hours: Intake & Output 03/29/20 03/30/20 03/30/20 22:59 06:59 14:59 Intake Total 344 Output Total 120 Balance -120 344 Lab Results Last 24 Hours: Laboratory Results - last 24 hr 03/29/20 03/29/20 03/29/20 Range/Units 18:12 18:12 18:12 WBC 8.3 (5.0-10.0) 10^3/uL RBC 4.78 (4.6-6.2) 10^6/uL Hgb 15.3 (14.0-18.0) g/dL Hct 42.3 (40.0-54.0) % MCV 88.5 (80-100) fL MCH 32.0 (27.0-34.0) pg MCHC 36.2 H (33.0-35.0) g/dL Plt Count 519 H D (150-450) 10^3/uL Neut % (Auto) 87.7 H (42.2-75.2) % Lymph % (Auto) 8.7 L (20.5-50.1) % [place] % (Auto) 3.4 (2-8) % Eos % (Auto) 0.0 L (1.0-3.0) % Baso % (Auto) 0.2 (0.0-1.0) % ABG pH (7.35-7.45) ABG pCO2 (35-45) mmHg ABG pO2 (70-100) mmHg ABG HCO3 (22-26) mmol/L ABG O2 Saturation (95-100) % ABG Base Excess ((-2)-(+3)) mmol/L [place] Test O2 Delivery Device Oxygen Flow Rate Sodium 134 L (136-145) mmol/L Potassium 4.4 (3.5-5.1) mmol/L Chloride 95 L (98-107) mmol/L Carbon Dioxide 18 L (21-32) mmol/L Anion Gap 25.4 H (7-13) mEq/L BUN 38 H D (7-18) mg/dL Creatinine 2.04 H (0.70-1.30) mg/dL Est Cr Clr Drug Dosing 49.94 mL/min Estimated GFR (MDRD) 37 BUN/Creatinine Ratio 18.6 (No establ ref range) Glucose 393 H (74-99) mg/dL POC Glucose (70-105) mg/dl Lactic Acid 2.9 H* (0.4-2.0) mmol/L Calcium 9.8 (8.5-10.1) mg/dL Magnesium 2.0 (1.8-2.4) mg/dL Total Bilirubin 0.9 (0.2-1.0) mg/dL AST 37 (15-37) U/L ALT 62 (16-63) U/L Alkaline Phosphatase 81 (46-116) U/L C-Reactive Protein 0.3 (0.0-0.9) mg/dL Total Protein 8.8 H (6.4-8.2) g/dL Albumin 4.4 (3.4-5.0) g/dL Globulin 4.4 Albumin/Globulin Ratio 1.0 Urine Color (YELLOW) Urine Appearance (CLEAR) Urine pH (5.0-9.0) Ur Specific [place] (1.005-1.030) Urine Protein (NEGATIVE) Urine Glucose (UA) (NEGATIVE) Urine Ketones (NEGATIVE) Urine Occult Blood (NEGATIVE) Urine Nitrite (NEGATIVE) Urine Bilirubin (NEGATIVE) Urine Urobilinogen (0.2-1.0) mg/dL Ur Leukocyte Esterase (NEGATIVE) U Hyaline Cast (Auto) Urine RBC /HPF Urine WBC (0-5/HPF) /HPF Ur Epithelial Cells (NOT SEEN) /HPF Amorphous Sediment (NOT SEEN) /HPF Urine Bacteria (0-FEW/HPF) /HPF Fine Granular Casts (NOT SEEN) /LPF Urine Mucus (NOT SEEN) /LPF Urine Opiates Screen (NEGATIVE) Ur Oxycodone Screen (NEGATIVE) Urine Methadone Screen (NEGATIVE) Ur Barbiturates Screen (NEGATIVE) U Tricyclic Antidepress (NEGATIVE) Ur Phencyclidine Scrn (NEGATIVE) Ur Amphetamine Screen (NEGATIVE) U Methamphetamines Scrn (NEGATIVE) Urine MDMA Screen (NEGATIVE) U Benzodiazepines Scrn (NEGATIVE) Urine Cocaine Screen (NEGATIVE) U Marijuana (THC) Screen (NEGATIVE) Ethyl Alcohol < 3 (0) mg/dL Ketones Small-20 mg/dl SARS-CoV-2 RNA (MINA) (NEGATIVE) 03/29/20 03/29/20 03/29/20 Range/Units 18:15 20:06 20:06 WBC (5.0-10.0) 10^3/uL RBC (4.6-6.2) 10^6/uL Hgb (14.0-18.0) g/dL Hct (40.0-54.0) % MCV (80-100) fL MCH (27.0-34.0) pg MCHC (33.0-35.0) g/dL Plt Count (150-450) 10^3/uL Neut % (Auto) (42.2-75.2) % Lymph % (Auto) (20.5-50.1) % [place] % (Auto) (2-8) % Eos % (Auto) (1.0-3.0) % Baso % (Auto) (0.0-1.0) % ABG pH (7.35-7.45) ABG pCO2 (35-45) mmHg ABG pO2 (70-100) mmHg ABG HCO3 (22-26) mmol/L ABG O2 Saturation (95-100) % ABG Base Excess ((-2)-(+3)) mmol/L [place] Test O2 Delivery Device Oxygen Flow Rate Sodium (136-145) mmol/L Potassium (3.5-5.1) mmol/L Chloride (98-107) mmol/L Carbon Dioxide (21-32) mmol/L Anion Gap (7-13) mEq/L BUN (7-18) mg/dL Creatinine (0.70-1.30) mg/dL Est Cr Clr Drug Dosing mL/min Estimated GFR (MDRD) BUN/Creatinine Ratio (No establ ref range) Glucose (74-99) mg/dL POC Glucose 384 H (70-105) mg/dl Lactic Acid (0.4-2.0) mmol/L Calcium (8.5-10.1) mg/dL Magnesium (1.8-2.4) mg/dL Total Bilirubin (0.2-1.0) mg/dL AST (15-37) U/L ALT (16-63) U/L Alkaline Phosphatase (46-116) U/L C-Reactive Protein (0.0-0.9) mg/dL Total Protein (6.4-8.2) g/dL Albumin (3.4-5.0) g/dL Globulin Albumin/Globulin Ratio Urine Color Yellow (YELLOW) Urine Appearance Slightly cloudy (CLEAR) Urine pH 5.5 (5.0-9.0) Ur Specific [place] >= 1.030 (1.005-1.030) Urine Protein >=300 H (NEGATIVE) Urine Glucose (UA) 500 H (NEGATIVE) Urine Ketones 80 H (NEGATIVE) Urine Occult Blood Small H (NEGATIVE) Urine Nitrite Negative (NEGATIVE) Urine Bilirubin Small H (NEGATIVE) Urine Urobilinogen 0.2 (0.2-1.0) mg/dL Ur Leukocyte Esterase Negative (NEGATIVE) U Hyaline Cast (Auto) Moderate Urine RBC 10-20 H /HPF Urine WBC 0-5 (0-5/HPF) /HPF Ur Epithelial Cells Few (NOT SEEN) /HPF Amorphous Sediment Few (NOT SEEN) /HPF Urine Bacteria Rare (0-FEW/HPF) /HPF Fine Granular Casts Few H (NOT SEEN) /LPF Urine Mucus Moderate H (NOT SEEN) /LPF Urine Opiates Screen Negative (NEGATIVE) Ur Oxycodone Screen Positive H (NEGATIVE) Urine Methadone Screen Negative (NEGATIVE) Ur Barbiturates Screen Negative (NEGATIVE) U Tricyclic Antidepress Negative (NEGATIVE) Ur Phencyclidine Scrn Negative (NEGATIVE) Ur Amphetamine Screen Positive H (NEGATIVE) U Methamphetamines Scrn Positive H (NEGATIVE) Urine MDMA Screen Negative (NEGATIVE) U Benzodiazepines Scrn Negative (NEGATIVE) Urine Cocaine Screen Negative (NEGATIVE) U Marijuana (THC) Screen Positive H (NEGATIVE) Ethyl Alcohol (0) mg/dL Ketones SARS-CoV-2 RNA (MINA) (NEGATIVE) 03/29/20 03/29/20 03/29/20 Range/Units 21:22 23:00 23:23 WBC (5.0-10.0) 10^3/uL RBC (4.6-6.2) 10^6/uL Hgb (14.0-18.0) g/dL Hct (40.0-54.0) % MCV (80-100) fL MCH (27.0-34.0) pg MCHC (33.0-35.0) g/dL Plt Count (150-450) 10^3/uL Neut % (Auto) (42.2-75.2) % Lymph % (Auto) (20.5-50.1) % [place] % (Auto) (2-8) % Eos % (Auto) (1.0-3.0) % Baso % (Auto) (0.0-1.0) % ABG pH 7.40 (7.35-7.45) ABG pCO2 33 L (35-45) mmHg ABG pO2 90 (70-100) mmHg ABG HCO3 20.1 L (22-26) mmol/L ABG O2 Saturation 96 (95-100) % ABG Base Excess -3 L ((-2)-(+3)) mmol/L [place] Test pos O2 Delivery Device Room air Oxygen Flow Rate 2 Sodium (136-145) mmol/L Potassium (3.5-5.1) mmol/L Chloride (98-107) mmol/L Carbon Dioxide (21-32) mmol/L Anion Gap (7-13) mEq/L BUN (7-18) mg/dL Creatinine (0.70-1.30) mg/dL Est Cr Clr Drug Dosing mL/min Estimated GFR (MDRD) BUN/Creatinine Ratio (No establ ref range) Glucose (74-99) mg/dL POC Glucose 331 H 352 H (70-105) mg/dl Lactic Acid (0.4-2.0) mmol/L Calcium (8.5-10.1) mg/dL Magnesium (1.8-2.4) mg/dL Total Bilirubin (0.2-1.0) mg/dL AST (15-37) U/L ALT (16-63) U/L Alkaline Phosphatase (46-116) U/L C-Reactive Protein (0.0-0.9) mg/dL Total Protein (6.4-8.2) g/dL Albumin (3.4-5.0) g/dL Globulin Albumin/Globulin Ratio Urine Color (YELLOW) Urine Appearance (CLEAR) Urine pH (5.0-9.0) Ur Specific [place] (1.005-1.030) Urine Protein (NEGATIVE) Urine Glucose (UA) (NEGATIVE) Urine Ketones (NEGATIVE) Urine Occult Blood (NEGATIVE) Urine Nitrite (NEGATIVE) Urine Bilirubin (NEGATIVE) Urine Urobilinogen (0.2-1.0) mg/dL Ur Leukocyte Esterase (NEGATIVE) U Hyaline Cast (Auto) Urine RBC /HPF Urine WBC (0-5/HPF) /HPF Ur Epithelial Cells (NOT SEEN) /HPF Amorphous Sediment (NOT SEEN) /HPF Urine Bacteria (0-FEW/HPF) /HPF Fine Granular Casts (NOT SEEN) /LPF Urine Mucus (NOT SEEN) /LPF Urine Opiates Screen (NEGATIVE) Ur Oxycodone Screen (NEGATIVE) Urine Methadone Screen (NEGATIVE) Ur Barbiturates Screen (NEGATIVE) U Tricyclic Antidepress (NEGATIVE) Ur Phencyclidine Scrn (NEGATIVE) Ur Amphetamine Screen (NEGATIVE) U Methamphetamines Scrn (NEGATIVE) Urine MDMA Screen (NEGATIVE) U Benzodiazepines Scrn (NEGATIVE) Urine Cocaine Screen (NEGATIVE) U Marijuana (THC) Screen (NEGATIVE) Ethyl Alcohol (0) mg/dL Ketones SARS-CoV-2 RNA (MINA) (NEGATIVE) 03/29/20 03/30/20 03/30/20 Range/Units 23:28 00:31 01:00 WBC (5.0-10.0) 10^3/uL RBC (4.6-6.2) 10^6/uL Hgb (14.0-18.0) g/dL Hct (40.0-54.0) % MCV (80-100) fL MCH (27.0-34.0) pg MCHC (33.0-35.0) g/dL Plt Count (150-450) 10^3/uL Neut % (Auto) (42.2-75.2) % Lymph % (Auto) (20.5-50.1) % [place] % (Auto) (2-8) % Eos % (Auto) (1.0-3.0) % Baso % (Auto) (0.0-1.0) % ABG pH (7.35-7.45) ABG pCO2 (35-45) mmHg ABG pO2 (70-100) mmHg ABG HCO3 (22-26) mmol/L ABG O2 Saturation (95-100) % ABG Base Excess ((-2)-(+3)) mmol/L [place] Test O2 Delivery Device Oxygen Flow Rate Sodium (136-145) mmol/L Potassium 4.4 (3.5-5.1) mmol/L Chloride (98-107) mmol/L Carbon Dioxide (21-32) mmol/L Anion Gap (7-13) mEq/L BUN (7-18) mg/dL Creatinine (0.70-1.30) mg/dL Est Cr Clr Drug Dosing mL/min Estimated GFR (MDRD) BUN/Creatinine Ratio (No establ ref range) Glucose (74-99) mg/dL POC Glucose 299 H (70-105) mg/dl Lactic Acid (0.4-2.0) mmol/L Calcium (8.5-10.1) mg/dL Magnesium 2.0 (1.8-2.4) mg/dL Total Bilirubin (0.2-1.0) mg/dL AST (15-37) U/L ALT (16-63) U/L Alkaline Phosphatase (46-116) U/L C-Reactive Protein (0.0-0.9) mg/dL Total Protein (6.4-8.2) g/dL Albumin (3.4-5.0) g/dL Globulin Albumin/Globulin Ratio Urine Color (YELLOW) Urine Appearance (CLEAR) Urine pH (5.0-9.0) Ur Specific [place] (1.005-1.030) Urine Protein (NEGATIVE) Urine Glucose (UA) (NEGATIVE) Urine Ketones (NEGATIVE) Urine Occult Blood (NEGATIVE) Urine Nitrite (NEGATIVE) Urine Bilirubin (NEGATIVE) Urine Urobilinogen (0.2-1.0) mg/dL Ur Leukocyte Esterase (NEGATIVE) U Hyaline Cast (Auto) Urine RBC /HPF Urine WBC (0-5/HPF) /HPF Ur Epithelial Cells (NOT SEEN) /HPF Amorphous Sediment (NOT SEEN) /HPF Urine Bacteria (0-FEW/HPF) /HPF Fine Granular Casts (NOT SEEN) /LPF Urine Mucus (NOT SEEN) /LPF Urine Opiates Screen (NEGATIVE) Ur Oxycodone Screen (NEGATIVE) Urine Methadone Screen (NEGATIVE) Ur Barbiturates Screen (NEGATIVE) U Tricyclic Antidepress (NEGATIVE) Ur Phencyclidine Scrn (NEGATIVE) Ur Amphetamine Screen (NEGATIVE) U Methamphetamines Scrn (NEGATIVE) Urine MDMA Screen (NEGATIVE) U Benzodiazepines Scrn (NEGATIVE) Urine Cocaine Screen (NEGATIVE) U Marijuana (THC) Screen (NEGATIVE) Ethyl Alcohol (0) mg/dL Ketones SARS-CoV-2 RNA (MINA) Negative (NEGATIVE) 03/30/20 03/30/20 03/30/20 Range/Units 02:00 03:34 04:29 WBC 11.8 H (5.0-10.0) 10^3/uL RBC 3.76 L (4.6-6.2) 10^6/uL Hgb 12.1 L D (14.0-18.0) g/dL Hct 34.5 L (40.0-54.0) % MCV 91.8 D (80-100) fL MCH 32.2 (27.0-34.0) pg MCHC 35.1 H (33.0-35.0) g/dL Plt Count 421 D (150-450) 10^3/uL Neut % (Auto) (42.2-75.2) % Lymph % (Auto) (20.5-50.1) % [place] % (Auto) (2-8) % Eos % (Auto) (1.0-3.0) % Baso % (Auto) (0.0-1.0) % ABG pH (7.35-7.45) ABG pCO2 (35-45) mmHg ABG pO2 (70-100) mmHg ABG HCO3 (22-26) mmol/L ABG O2 Saturation (95-100) % ABG Base Excess ((-2)-(+3)) mmol/L [place] Test O2 Delivery Device Oxygen Flow Rate Sodium (136-145) mmol/L Potassium (3.5-5.1) mmol/L Chloride (98-107) mmol/L Carbon Dioxide (21-32) mmol/L Anion Gap (7-13) mEq/L BUN (7-18) mg/dL Creatinine (0.70-1.30) mg/dL Est Cr Clr Drug Dosing mL/min Estimated GFR (MDRD) BUN/Creatinine Ratio (No establ ref range) Glucose (74-99) mg/dL POC Glucose 312 H 288 H (70-105) mg/dl Lactic Acid (0.4-2.0) mmol/L Calcium (8.5-10.1) mg/dL Magnesium (1.8-2.4) mg/dL Total Bilirubin (0.2-1.0) mg/dL AST (15-37) U/L ALT (16-63) U/L Alkaline Phosphatase (46-116) U/L C-Reactive Protein (0.0-0.9) mg/dL Total Protein (6.4-8.2) g/dL Albumin (3.4-5.0) g/dL Globulin Albumin/Globulin Ratio Urine Color (YELLOW) Urine Appearance (CLEAR) Urine pH (5.0-9.0) Ur Specific [place] (1.005-1.030) Urine Protein (NEGATIVE) Urine Glucose (UA) (NEGATIVE) Urine Ketones (NEGATIVE) Urine Occult Blood (NEGATIVE) Urine Nitrite (NEGATIVE) Urine Bilirubin (NEGATIVE) Urine Urobilinogen (0.2-1.0) mg/dL Ur Leukocyte Esterase (NEGATIVE) U Hyaline Cast (Auto) Urine RBC /HPF Urine WBC (0-5/HPF) /HPF Ur Epithelial Cells (NOT SEEN) /HPF Amorphous Sediment (NOT SEEN) /HPF Urine Bacteria (0-FEW/HPF) /HPF Fine Granular Casts (NOT SEEN) /LPF Urine Mucus (NOT SEEN) /LPF Urine Opiates Screen (NEGATIVE) Ur Oxycodone Screen (NEGATIVE) Urine Methadone Screen (NEGATIVE) Ur Barbiturates Screen (NEGATIVE) U Tricyclic Antidepress (NEGATIVE) Ur Phencyclidine Scrn (NEGATIVE) Ur Amphetamine Screen (NEGATIVE) U Methamphetamines Scrn (NEGATIVE) Urine MDMA Screen (NEGATIVE) U Benzodiazepines Scrn (NEGATIVE) Urine Cocaine Screen (NEGATIVE) U Marijuana (THC) Screen (NEGATIVE) Ethyl Alcohol (0) mg/dL Ketones SARS-CoV-2 RNA (MINA) (NEGATIVE) 03/30/20 03/30/20 03/30/20 Range/Units 04:29 07:53 08:35 WBC (5.0-10.0) 10^3/uL RBC (4.6-6.2) 10^6/uL Hgb (14.0-18.0) g/dL Hct (40.0-54.0) % MCV (80-100) fL MCH (27.0-34.0) pg MCHC (33.0-35.0) g/dL Plt Count (150-450) 10^3/uL Neut % (Auto) (42.2-75.2) % Lymph % (Auto) (20.5-50.1) % [place] % (Auto) (2-8) % Eos % (Auto) (1.0-3.0) % Baso % (Auto) (0.0-1.0) % ABG pH (7.35-7.45) ABG pCO2 (35-45) mmHg ABG pO2 (70-100) mmHg ABG HCO3 (22-26) mmol/L ABG O2 Saturation (95-100) % ABG Base Excess ((-2)-(+3)) mmol/L [place] Test O2 Delivery Device Oxygen Flow Rate Sodium (136-145) mmol/L Potassium (3.5-5.1) mmol/L Chloride (98-107) mmol/L Carbon Dioxide (21-32) mmol/L Anion Gap (7-13) mEq/L BUN (7-18) mg/dL Creatinine (0.70-1.30) mg/dL Est Cr Clr Drug Dosing mL/min Estimated GFR (MDRD) BUN/Creatinine Ratio (No establ ref range) Glucose (74-99) mg/dL POC Glucose 266 H (70-105) mg/dl Lactic Acid 0.8 0.7 (0.4-2.0) mmol/L Calcium (8.5-10.1) mg/dL Magnesium (1.8-2.4) mg/dL Total Bilirubin (0.2-1.0) mg/dL AST (15-37) U/L ALT (16-63) U/L Alkaline Phosphatase (46-116) U/L C-Reactive Protein (0.0-0.9) mg/dL Total Protein (6.4-8.2) g/dL Albumin (3.4-5.0) g/dL Globulin Albumin/Globulin Ratio Urine Color (YELLOW) Urine Appearance (CLEAR) Urine pH (5.0-9.0) Ur Specific [place] (1.005-1.030) Urine Protein (NEGATIVE) Urine Glucose (UA) (NEGATIVE) Urine Ketones (NEGATIVE) Urine Occult Blood (NEGATIVE) Urine Nitrite (NEGATIVE) Urine Bilirubin (NEGATIVE) Urine Urobilinogen (0.2-1.0) mg/dL Ur Leukocyte Esterase (NEGATIVE) U Hyaline Cast (Auto) Urine RBC /HPF Urine WBC (0-5/HPF) /HPF Ur Epithelial Cells (NOT SEEN) /HPF Amorphous Sediment (NOT SEEN) /HPF Urine Bacteria (0-FEW/HPF) /HPF Fine Granular Casts (NOT SEEN) /LPF Urine Mucus (NOT SEEN) /LPF Urine Opiates Screen (NEGATIVE) Ur Oxycodone Screen (NEGATIVE) Urine Methadone Screen (NEGATIVE) Ur Barbiturates Screen (NEGATIVE) U Tricyclic Antidepress (NEGATIVE) Ur Phencyclidine Scrn (NEGATIVE) Ur Amphetamine Screen (NEGATIVE) U Methamphetamines Scrn (NEGATIVE) Urine MDMA Screen (NEGATIVE) U Benzodiazepines Scrn (NEGATIVE) Urine Cocaine Screen (NEGATIVE) U Marijuana (THC) Screen (NEGATIVE) Ethyl Alcohol (0) mg/dL Ketones SARS-CoV-2 RNA (MINA) (NEGATIVE) 03/30/20 Range/Units 11:05 WBC (5.0-10.0) 10^3/uL RBC (4.6-6.2) 10^6/uL Hgb (14.0-18.0) g/dL Hct (40.0-54.0) % MCV (80-100) fL MCH (27.0-34.0) pg MCHC (33.0-35.0) g/dL Plt Count (150-450) 10^3/uL Neut % (Auto) (42.2-75.2) % Lymph % (Auto) (20.5-50.1) % [place] % (Auto) (2-8) % Eos % (Auto) (1.0-3.0) % Baso % (Auto) (0.0-1.0) % ABG pH (7.35-7.45) ABG pCO2 (35-45) mmHg ABG pO2 (70-100) mmHg ABG HCO3 (22-26) mmol/L ABG O2 Saturation (95-100) % ABG Base Excess ((-2)-(+3)) mmol/L [place] Test O2 Delivery Device Oxygen Flow Rate Sodium (136-145) mmol/L Potassium (3.5-5.1) mmol/L Chloride (98-107) mmol/L Carbon Dioxide (21-32) mmol/L Anion Gap (7-13) mEq/L BUN (7-18) mg/dL Creatinine (0.70-1.30) mg/dL Est Cr Clr Drug Dosing mL/min Estimated GFR (MDRD) BUN/Creatinine Ratio (No establ ref range) Glucose (74-99) mg/dL POC Glucose 299 H (70-105) mg/dl Lactic Acid (0.4-2.0) mmol/L Calcium (8.5-10.1) mg/dL Magnesium (1.8-2.4) mg/dL Total Bilirubin (0.2-1.0) mg/dL AST (15-37) U/L ALT (16-63) U/L Alkaline Phosphatase (46-116) U/L C-Reactive Protein (0.0-0.9) mg/dL Total Protein (6.4-8.2) g/dL Albumin (3.4-5.0) g/dL Globulin Albumin/Globulin Ratio Urine Color (YELLOW) Urine Appearance (CLEAR) Urine pH (5.0-9.0) Ur Specific [place] (1.005-1.030) Urine Protein (NEGATIVE) Urine Glucose (UA) (NEGATIVE) Urine Ketones (NEGATIVE) Urine Occult Blood (NEGATIVE) Urine Nitrite (NEGATIVE) Urine Bilirubin (NEGATIVE) Urine Urobilinogen (0.2-1.0) mg/dL Ur Leukocyte Esterase (NEGATIVE) U Hyaline Cast (Auto) Urine RBC /HPF Urine WBC (0-5/HPF) /HPF Ur Epithelial Cells (NOT SEEN) /HPF Amorphous Sediment (NOT SEEN) /HPF Urine Bacteria (0-FEW/HPF) /HPF Fine Granular Casts (NOT SEEN) /LPF Urine Mucus (NOT SEEN) /LPF Urine Opiates Screen (NEGATIVE) Ur Oxycodone Screen (NEGATIVE) Urine Methadone Screen (NEGATIVE) Ur Barbiturates Screen (NEGATIVE) U Tricyclic Antidepress (NEGATIVE) Ur Phencyclidine Scrn (NEGATIVE) Ur Amphetamine Screen (NEGATIVE) U Methamphetamines Scrn (NEGATIVE) Urine MDMA Screen (NEGATIVE) U Benzodiazepines Scrn (NEGATIVE) Urine Cocaine Screen (NEGATIVE) U Marijuana (THC) Screen (NEGATIVE) Ethyl Alcohol (0) mg/dL Ketones SARS-CoV-2 RNA (MINA) (NEGATIVE) Med Orders - Current: Current Medications Acetaminophen (Tylenol) 650 mg PO Q4H PRN PRN Reason: Pain (Mild 1-3)/fever Last Admin: 03/30/20 13:08 Dose: 650 mg Documented by: Clonidine HCl (Catapres) 0.1 mg PO BID@0200,1400 [facility] Last Admin: 03/30/20 14:21 Dose: 0.1 mg Documented by: Dextrose/Water (Dextrose 50% In Water) 50 ml IV ASDIRECTED PRN PRN Reason: Hypoglycemia Fentanyl (Sublimaze) 25 mcg IVPUSH Q2H PRN PRN Reason: Pain Last Admin: 03/30/20 08:05 Dose: 25 mcg Documented by: Flumazenil (Romazicon) 0.2 mg IVPUSH ASDIRECTED PRN PRN Reason: Respiratory Depression Glucagon (Glucagen) 1 mg IM ASDIRECTED PRN PRN Reason: Hypoglycemia Heparin Sodium (Porcine) (Heparin Sodium) 5,000 units SUBCUT Q12HR [facility] Last Admin: 03/30/20 08:06 Dose: 5,000 units Documented by: Hydroxyzine HCl (Atarax) 25 mg PO 0200,1000,1800 [facility] Last Admin: 03/30/20 11:44 Dose: 25 mg Documented by: Sodium Chloride (Normal Saline) 1,000 mls @ 250 mls/hr IV ASDIRECTED [facility] Last Admin: 03/30/20 07:36 Dose: 250 mls/hr Documented by: Piperacillin Sod/Tazobactam (Sod 3.375 gm/ Sodium Chloride) 100 mls @ 200 mls/hr IV Q6H [facility] Last Admin: 03/30/20 12:55 Dose: 200 mls/hr Documented by: Vancomycin HCl 1 gm/ Sodium (Chloride) 250 mls @ 166.667 mls/hr IV Q12H [facility] Last Admin: 03/30/20 14:21 Dose: 166.667 mls/hr Documented by: Insulin Human Lispro (Humalog) 0 unit SUBCUT WITHMEALSANDBED [facility]; Protocol Last Admin: 03/30/20 11:45 Dose: 6 units Documented by: Ondansetron HCl (Zofran) 4 mg IVPUSH Q6H PRN PRN Reason: Nausea/Vomiting Last Admin: 03/30/20 13:09 Dose: 4 mg Documented by: Vancomycin HCl (Pharmacy To Dose - Vancomycin) 1 dose .XX ASDIRECTED [facility] Discontinued Medications Al Hydroxide/Mg Hydroxide (Gi Cocktail) 30 ml PO ONETIME ONE Stop: 03/29/20 21:12 Last Admin: 03/29/20 21:17 Dose: 30 ml Documented by: Clonidine HCl (Catapres) 0.1 mg PO 0200,1400 [facility] Last Admin: 03/30/20 14:35 Dose: Not Given Documented by: Clonidine HCl (Catapres) 0.1 mg PO ONETIME ONE Stop: 03/30/20 02:01 Last Admin: 03/30/20 02:11 Dose: 0.1 mg Documented by: Dextrose/Water (Dextrose 50% In Water) 50 ml IV ASDIRECTED PRN PRN Reason: Hypoglycemia Dextrose/Water (Dextrose 50% In Water) 50 ml IV ASDIRECTED PRN PRN Reason: Hypoglycemia Dextrose/Water (Dextrose 50% In Water) 50 ml IV ASDIRECTED PRN PRN Reason: Hypoglycemia Famotidine (Pepcid) 20 mg IVPUSH ONETIME ONE Stop: 03/29/20 19:23 Last Admin: 03/29/20 19:42 Dose: 20 mg Documented by: Glucagon (Glucagen) 1 mg IM ASDIRECTED PRN PRN Reason: Hypoglycemia Glucagon (Glucagen) 1 mg IM ASDIRECTED PRN PRN Reason: Hypoglycemia Glucagon (Glucagen) 1 mg IM ASDIRECTED PRN PRN Reason: Hypoglycemia Hydroxyzine HCl (Atarax) 25 mg PO Q8HR [facility] Last Admin: 03/30/20 07:05 Dose: Not Given Documented by: Hydroxyzine HCl (Atarax) 25 mg PO ONETIME ONE Stop: 03/30/20 02:01 Last Admin: 03/30/20 02:11 Dose: 25 mg Documented by: Sodium Chloride (Normal Saline) 1,000 mls @ 999 mls/hr IV .BOLUS ONE Stop: 03/29/20 19:26 Last Admin: 03/29/20 22:58 Dose: 999 mls/hr Documented by: Sodium Chloride (Normal Saline) 1,000 mls @ 999 mls/hr IV .BOLUS ONE Stop: 03/30/20 00:00 Last Admin: 03/30/20 00:22 Dose: Not Given Documented by: Vancomycin HCl 1.25 gm/ Sodium (Chloride) 250 mls @ 166.667 mls/hr IV ONETIME ONE Stop: 03/30/20 02:29 Last Admin: 03/30/20 02:31 Dose: 166.667 mls/hr Documented by: Insulin Human Regular (Humulin R) 5 unit IV ONETIME ONE; Protocol Stop: 03/29/20 20:14 Last Admin: 03/29/20 20:41 Dose: 5 units Documented by: Insulin Human Regular (Humulin R) 5 unit IV ONETIME ONE Stop: 03/29/20 23:05 Last Admin: 03/30/20 01:00 Dose: 5 units Documented by: Insulin Human Regular (Humulin R) Confirm Administered Dose 300 unit .ROUTE .STK-MED ONE Stop: 03/30/20 00:54 Last Admin: 03/30/20 01:19 Dose: Not Given Documented by: Insulin Human Regular (Humulin R) 5 unit IV ONETIME ONE Stop: 03/30/20 02:06 Last Admin: 03/30/20 02:39 Dose: 5 units Documented by: Iopamidol (Isovue-300 (61%)) 100 ml IVPUSH ONETIME ONE Stop: 03/29/20 19:07 Lorazepam (Ativan) 2 mg IVPUSH Q2H PRN PRN Reason: Other Metoclopramide HCl (Reglan) 10 mg IVPUSH ONETIME ONE Stop: 03/29/20 22:53 Last Admin: 03/29/20 23:00 Dose: 10 mg Documented by: Morphine Sulfate (Morphine) 1 mg IVPUSH ONETIME ONE Stop: 03/30/20 01:32 Last Admin: 03/30/20 02:15 Dose: Not Given Documented by: Ondansetron HCl (Zofran) 4 mg IVPUSH ONETIME ONE Stop: 03/29/20 19:10 Last Admin: 03/29/20 19:40 Dose: 4 mg Documented by: Promethazine HCl (Phenergan) 25 mg IM ONETIME PRN PRN Reason: Nausea/Vomiting Last Admin: 03/29/20 21:18 Dose: 25 mg Documented by: - Exam Quality Assessment: DVT Prophylaxis General: Alert, Oriented HEENT: Pupils Equal, Pupils Reactive, EOMI, Mucous Membr. Moist/[place] Neck: Supple Lungs: Clear to Auscultation, Normal Respiratory Effort Cardiovascular: Regular Rate, Regular Rhythm GI/Abdominal Exam: Normal Bowel Sounds, Soft, Non-Tender, No Organomegaly, No Distention, No Abnormal Bruit, No Mass, Pelvis Stable (Male) Exam: No Hernia, Normal Inspection, Normal Prostate, Circumcised Back Exam: Normal Inspection, Full Range of Motion Extremities: Normal Inspection, Normal Range of Motion, Non-Tender, No Pedal Edema, Normal Capillary Refill Skin: Warm, Dry, Intact Wound/Incisions: Healing Well Neurological: No New Focal Deficit Psy/Mental Status: Alert, Normal Affect, Normal Mood Sepsis Event Note - Evaluation Sepsis Screening Result: No Definite Risk - Focused Exam Vital Signs: Vital Signs Temp Pulse Resp BP BP Pulse Ox 03/30/20 14:35 148/78 H 03/30/20 14:21 148/78 H 03/30/20 12:51 98.8 F 64 20 148/78 H 99 03/30/20 12:00 98.5 F 123 H 20 96 03/30/20 08:09 98.6 F 60 20 152/83 H 99 03/30/20 05:30 98.4 F 103 H 18 133/78 97 - Problem List & Annotations (1) Lactic acidosis SNOMED Code(s): 76044663 Code(s): E87.2 - ACIDOSIS Status: Acute Current Visit: Yes (2) Sepsis due to undetermined organism SNOMED Code(s): 10206481 Code(s): A41.9 - SEPSIS, UNSPECIFIED ORGANISM Status: Acute Current Visit: Yes (3) Substance use disorder SNOMED Code(s): 754993958, 413518662 Code(s): F19.90 - OTHER PSYCHOACTIVE SUBSTANCE USE, UNSPECIFIED, UNCOMPLICATED Status: Acute Current Visit: Yes (4) Opiate withdrawal SNOMED Code(s): 23514802 Code(s): F11.23 - OPIOID DEPENDENCE WITH WITHDRAWAL Status: Acute Current Visit: Yes (5) Opioid abuse with withdrawal SNOMED Code(s): 30609902, 00482786 Code(s): F11.13 - OPIOID ABUSE WITH WITHDRAWAL Status: Acute Current Visit: Yes (6) Hyponatremia SNOMED Code(s): 72366740 Code(s): E87.1 - HYPO-OSMOLALITY AND HYPONATREMIA Status: Acute Current Visit: Yes - Problem List Review Problem List Initiated/Reviewed/Updated: Yes - My Orders Last 24 Hours: My Active Orders 03/29/20 20:06 CULTURE URINE [RM] Stat 03/30/20 00:34 Ambulate [RC] ASDIRECTED Blood Glucose Check, Bedside [RC] QIDACANDBED Height and Weight [RC] 0600 Oxygen Therapy [RC] .PRN VTE/DVT Education [RC] 08,20 Vital Signs [RC] 00,04,08,12,16,20 CULTURE SPUTUM + SMEAR [RM] Stat Acetaminophen [TylenoL] 650 mg PO Q4H PRN Blood Culture x2 Reflex Set [OM.PC] Stat Resuscitation Status Routine 03/30/20 00:35 Cardiac Monitoring [RC] 08,20 Intake and Output [RC] 06,14,22 Notify Provider Vital Signs [RC] ASDIRECTED 03/30/20 00:45 Pharmacy to Dose - Vancomycin 1 dose .XX ASDIRECTED Piperacillin/Tazobactam [Zosyn] 3.375 gm Sodium Chloride 0.9% [Normal Saline] 100 ml IV Q6H Sodium Chloride 0.9% [Normal Saline] 1,000 ml IV ASDIRECTED 03/30/20 01:00 CULTURE BLOOD [BC] Stat PROCALCITONIN [REF] Routine 03/30/20 01:07 CULTURE BLOOD [BC] Stat 03/30/20 01:15 flumazeniL [Romazicon] 0.2 mg IVPUSH ASDIRECTED PRN 03/30/20 01:30 Ondansetron [Zofran] 4 mg IVPUSH Q6H PRN 03/30/20 02:05 Dextrose 50% in Water 50 ml IV ASDIRECTED PRN Glucagon,Human Recombinant [GlucaGen] 1 mg IM ASDIRECTED PRN 03/30/20 07:41 fentaNYL [Sublimaze] 25 mcg IVPUSH Q2H PRN 03/30/20 08:00 Insulin Lispro [HumaLOG] See Protocol SUBCUT WITHMEALSANDBED 03/30/20 09:00 Heparin Sodium 5,000 units SUBCUT Q12HR 03/30/20 09:45 Diabetes Education [RC] ONETIME 03/30/20 10:00 hydrOXYzine HCL [Atarax] 25 mg PO 0200,1000,1800 03/30/20 Lunch Clear Liquid Diet [DIET] 03/30/20 13:00 Vancomycin 1 gm Sodium Chloride 0.9% [Normal Saline (AdvBag)] 250 ml IV Q12H 03/30/20 14:15 cloNIDine [Catapres] 0.1 mg PO BID@0200,1400 - Plan Plan:: #Acute substance intoxication #Probable opiate withdrawal IV hydration Monitor on telemetry Zofran as needed for nausea vomiting Add hydroxyzine if nausea is persistent Clonidine 0.1 mg every 12 hourly Patient counseled to quit using drugs Social work consult to provide resources #Lactic acidosis Resolved #Probable sepsis. This is less likely Chest x-ray negative Follow-up on cultures blood cx, urine cx, sputum gor gram marylou and cx Follow-up on procalcitonin Continue empiric broad-spectrum antibiotic with IV Vanco and Zosyn for now #Uncontrolled DM IVF A1c Lispro 5 units q. meals Levemir nightly Sliding scale insulin for optimal glycemic control Accu-cheks Hypoglycemic protocol nurse informatics educator consult Instructor Adjunct Surgical Technician consult #Hyponatremia Resolved Polysubstance abuse Counseled to quit
[2020-03-30 17:12] LABS: ANION GAP 16.2 mEq/L (7-13); CHLORIDE,CL 102 mmol/L (98-107); SODIUM,NA 135 mmol/L (136-145)
[2020-03-30] MEDS ORDERED: Insulin Glarg,Human.Rec.Analog 100 Unit/ML SUBCUT SCH (21:00)
[2020-03-30] MEDS: Benzocaine/Cetylpyridinium/Menthol Lozenge MUCMEM PRN ×2 (22:53→23:01)
[2020-03-31] MEDS: Piperacillin/Tazobactam 3.375 GM in Sodium Chloride 0.9% 100 ML IV SCH ×3 (00:31→12:49)
[2020-03-31] MEDS: fentaNYL 100 MCG/2 ML SDV IVPUSH PRN (02:11)
[2020-03-31] MEDS: cloNIDine 0.1 MG Tab PO SCH ×2 (02:23→15:29)
[2020-03-31] MEDS: hydrOXYzine HCl 25 MG Tab PO SCH ×2 (02:23→11:15)
[2020-03-31] MEDS: Heparin Sodium 5,000 Units/ML Vial SUBCUT SCH (08:17)
[2020-03-31] MEDS: Insulin Lispro 100 Units/ML 3 ML Vial SUBCUT SCH ×2 (08:18→12:43)
[2020-03-31] MEDS ORDERED: buPROPion 150 MG Tab.ER PO SCH (09:00)
[2020-03-31] MEDS ORDERED: Lisinopril 10 MG Tab PO SCH (09:00)
--- NOTE | 2020-03-31 11:53 | PCM.DCSUM1 ---
Discharge Summary - Hospital Course HPI Initial Comments: Nicolas is 34-year-old male with past medical history of diabetes on Metformin and insulin, substance use disorder who presented to the ED for evaluation of abdominal pain, nausea, vomiting. He was admitted for acute substance intoxication versus probable opiate withdrawal symptoms. Urine toxicology was positive for oxycodone, amphetamine, methamphetamine and marijuana. He also had hyperglycemia due to uncontrolled type 2 diabetes. He was negative lactic acid and a fever of 102 F. He was started on broad-spectrum antibiotics. Cultures remain negative. Antibiotic was discontinued. Patient responded to treatment. Social work was consulted to provide outpatient resource for clinical dependency program. Patient requires no services. maintenance repairman was also consulted and patient declined services. His symptoms resolved. He was discharged in stable condition with plan to follow-up with PCP. Patient was strongly advised on the dangers of continuing drug abuse and was counseled to quit. He verbalized understanding. Diagnosis: Stroke: No - Discharge Data Discharge Date: 03/31/20 Discharge Disposition: Home, Self-Care 01 Condition: Good - Referral to Home Health Primary [facility] Physician: [facility] - Discharge Diagnosis/Problem(s) (1) Lactic acidosis SNOMED Code(s): 94993666 ICD Code: E87.2 - ACIDOSIS Status: Acute Current Visit: Yes (2) Sepsis due to undetermined organism SNOMED Code(s): 64276334 ICD Code: A41.9 - SEPSIS, UNSPECIFIED ORGANISM Status: Acute Current Visit: Yes (3) Substance use disorder SNOMED Code(s): 919921145, 376484421 ICD Code: F19.90 - OTHER PSYCHOACTIVE SUBSTANCE USE, UNSPECIFIED, UNCOMPLICATED Status: Acute Current Visit: Yes (4) Opiate withdrawal SNOMED Code(s): 78551616 ICD Code: F11.23 - OPIOID DEPENDENCE WITH WITHDRAWAL Status: Acute Curren t Visit: Yes (5) Opioid abuse with withdrawal SNOMED Code(s): 89365450, 84291450 ICD Code: F11.13 - OPIOID ABUSE WITH WITHDRAWAL Status: Acute Current Visit: Yes (6) Hyponatremia SNOMED Code(s): 97707464 ICD Code: E87.1 - HYPO-OSMOLALITY AND HYPONATREMIA Status: Acute Current Visit: Yes - Patient Instructions Diet: Regular Diet as Tolerated Activity: As Tolerated Driving: May Drive Today Showering/Bathing: May Shower Notify Provider of: Fever, Nausea and/or Vomiting - Discharge Plan *PRESCRIPTION DRUG MONITORING PROGRAM REVIEWED*: No *COPY OF PRESCRIPTION DRUG MONITORING REPORT IN PATIENT KATE: No Prescriptions/Med Rec: hydrOXYzine HCL [hydrOXYzine] 25 mg PO Q8H PRN #90 tablet PRN Reason: Nausea/Vomiting Phosphorus #1 [Neutra-Phos] 250 mg PO DAILY 7 Days #7 tablet Home Medications: Home Meds metFORMIN [Glucophage] 1,000 mg PO BID 05/26/13 [History] Lisinopril 5 mg PO DAILY 07/16/15 [History] Pantoprazole Sodium [Protonix] 40 mg PO DAILY 30 Days #30 tablet. 01/12/20 [Rx] QUEtiapine [SEROquel] 50 mg PO BEDTIME 03/30/20 [History] buPROPion [buPROPion XL] 150 mg PO DAILY 03/30/20 [History] Phosphorus #1 [Neutra-Phos] 250 mg PO DAILY 7 Days #7 tablet 03/31/20 [Rx] hydrOXYzine HCL [hydrOXYzine] 25 mg PO Q8H PRN #90 tablet 03/31/20 [Rx] Patient Handouts: Substance Use Disorder, Nausea, Adult, [id number], Hydroxyzine capsules or tablets - Discharge Summary/Plan Comment DC Time >30 min.: Yes - General Info Date of Service: 03/31/20 Functional Status: Reports: Pain Controlled - Review of Systems General: Reports: No Symptoms HEENT: Reports: No Symptoms Pulmonary: Reports: No Symptoms Cardiovascular: Reports: No Symptoms Gastrointestinal: Reports: No Symptoms Genitourinary: Reports: No Symptoms Musculoskeletal: Reports: No Symptoms Skin: Reports: No Symptoms Neurological: Reports: No Symptoms Psychiatric: Reports: No Symptoms - Patient Data Vitals - Most Recent: Last Vital Signs Temp 99.6 F 03/31/20 02:20 Pulse 60 03/31/20 02:20 Resp 18 03/31/20 02:20 BP 149/89 H 03/31/20 08:19 Pulse Ox 100 03/31/20 02:20 Weight - Most Recent: 160 lb 8 oz I&O - Last 24 hours: Intake & Output 03/30/20 03/31/20 03/31/20 22:59 06:59 14:59 Intake Total 439 Balance 439 Lab Results - Last 24 hrs: Laboratory Results - last 24 hr 03/30/20 03/30/20 03/30/20 Range/Units 01:00 16:42 16:50 Sodium 135 L (136-145) mmol/L Potassium 4.2 (3.5-5.1) mmol/L Chloride 102 (98-107) mmol/L Carbon Dioxide 21 (21-32) mmol/L Anion Gap 16.2 H (7-13) mEq/L BUN 24 H (7-18) mg/dL Creatinine 1.04 (0.70-1.30) mg/dL Est Cr Clr Drug Dosing 99.22 mL/min Estimated GFR (MDRD) > 60 Glucose 263 H (74-99) mg/dL POC Glucose 275 H (70-105) mg/dl Calcium 8.0 L D (8.5-10.1) mg/dL Phosphorus (2.6-4.7) mg/dL Magnesium 1.8 (1.8-2.4) mg/dL Procalcitonin 0.06 ng/mL 03/30/20 03/30/20 03/31/20 Range/Units 16:50 21:46 07:52 Sodium (136-145) mmol/L Potassium (3.5-5.1) mmol/L Chloride (98-107) mmol/L Carbon Dioxide (21-32) mmol/L Anion Gap (7-13) mEq/L BUN (7-18) mg/dL Creatinine (0.70-1.30) mg/dL Est Cr Clr Drug Dosing mL/min Estimated GFR (MDRD) Glucose (74-99) mg/dL POC Glucose 239 H 240 H (70-105) mg/dl Calcium (8.5-10.1) mg/dL Phosphorus 2.5 L (2.6-4.7) mg/dL Magnesium (1.8-2.4) mg/dL Procalcitonin ng/mL AI Results - Last 24 hrs: Microbiology 03/29/20 20:06 Urine Culture - Preliminary Urine, Clean Catch NO GROWTH AFTER 1 DAY 03/30/20 01:07 Aerobic Blood Culture - Preliminary Blood - Arm, Right NO GROWTH AFTER 1 DAY Anaerobic Blood Culture - Preliminary NO GROWTH AFTER 1 DAY 03/30/20 01:00 Aerobic Blood Culture - Preliminary Blood - Venous - Iv Start NO GROWTH AFTER 1 DAY Anaerobic Blood Culture - Preliminary NO GROWTH AFTER 1 DAY Med Orders - Current: Current Medications Acetaminophen (Tylenol) 650 mg PO Q4H PRN PRN Reason: Pain (Mild 1-3)/fever Last Admin: 03/30/20 13:08 Dose: 650 mg Documented by: Benzocaine/Menthol (Cepacol Sore Throat) 1 lozenge MUCMEM Q3H PRN PRN Reason: Sore Throat Last Admin: 03/30/20 22:53 Dose: 1 lozenge Documented by: Bupropion HCl (Wellbutrin Xl) 150 mg PO DAILY [facility] Last Admin: 03/31/20 08:19 Dose: 150 mg Documented by: Clonidine HCl (Catapres) 0.1 mg PO BID@0200,1400 [facility] Last Admin: 03/31/20 02:23 Dose: 0.1 mg Documented by: Dextrose/Water (Dextrose 50% In Water) 50 ml IV ASDIRECTED PRN PRN Reason: Hypoglycemia Fentanyl (Sublimaze) 25 mcg IVPUSH Q2H PRN PRN Reason: Pain Last Admin: 03/31/20 02:11 Dose: 25 mcg Documented by: Flumazenil (Romazicon) 0.2 mg IVPUSH ASDIRECTED PRN PRN Reason: Respiratory Depression Glucagon (Glucagen) 1 mg IM ASDIRECTED PRN PRN Reason: Hypoglycemia Heparin Sodium (Porcine) (Heparin Sodium) 5,000 units SUBCUT Q12HR [facility] Last Admin: 03/31/20 08:17 Dose: 5,000 units Documented by: Hydroxyzine HCl (Atarax) 25 mg PO 0200,1000,1800 [facility] Last Admin: 03/31/20 11:15 Dose: 25 mg Documented by: Piperacillin Sod/Tazobactam (Sod 3.375 gm/ Sodium Chloride) 100 mls @ 200 mls/hr IV Q6H [facility] Last Infusion: 03/31/20 06:32 Dose: Infused Documented by: Vancomycin HCl 1 gm/ Sodium (Chloride) 250 mls @ 166.667 mls/hr IV Q12H [facility] Last Admin: 03/31/20 01:12 Dose: 166.667 mls/hr Documented by: Insulin Glargine (Lantus) 10 unit SUBCUT BEDTIME [facility] Last Admin: 03/30/20 23:12 Dose: 10 units Documented by: Insulin Human Lispro (Humalog) 0 unit SUBCUT WITHMEALSANDBED [facility]; Protocol Last Admin: 03/31/20 08:18 Dose: 4 units Documented by: Lisinopril (Prinivil) 5 mg PO DAILY [facility] Last Admin: 03/31/20 08:19 Dose: 5 mg Documented by: Ondansetron HCl (Zofran) 4 mg IVPUSH Q6H PRN PRN Reason: Nausea/Vomiting Last Admin: 03/30/20 22:10 Dose: 4 mg Documented by: Vancomycin HCl (Pharmacy To Dose - Vancomycin) 1 dose .XX ASDIRECTED [facility] Discontinued Medications Al Hydroxide/Mg Hydroxide (Gi Cocktail) 30 ml PO ONETIME ONE Stop: 03/29/20 21:12 Last Admin: 03/29/20 21:17 Dose: 30 ml Documented by: Clonidine HCl (Catapres) 0.1 mg PO 0200,1400 [facility] Last Admin: 03/30/20 14:35 Dose: Not Given Documented by: Clonidine HCl (Catapres) 0.1 mg PO ONETIME ONE Stop: 03/30/20 02:01 Last Admin: 03/30/20 02:11 Dose: 0.1 mg Documented by: Dextrose/Water (Dextrose 50% In Water) 50 ml IV ASDIRECTED PRN PRN Reason: Hypoglycemia Dextrose/Water (Dextrose 50% In Water) 50 ml IV ASDIRECTED PRN PRN Reason: Hypoglycemia Dextrose/Water (Dextrose 50% In Water) 50 ml IV ASDIRECTED PRN PRN Reason: Hypoglycemia Famotidine (Pepcid) 20 mg IVPUSH ONETIME ONE Stop: 03/29/20 19:23 Last Admin: 03/29/20 19:42 Dose: 20 mg Documented by: Glucagon (Glucagen) 1 mg IM ASDIRECTED PRN PRN Reason: Hypoglycemia Glucagon (Glucagen) 1 mg IM ASDIRECTED PRN PRN Reason: Hypoglycemia Glucagon (Glucagen) 1 mg IM ASDIRECTED PRN PRN Reason: Hypoglycemia Hydroxyzine HCl (Atarax) 25 mg PO Q8HR [facility] Last Admin: 03/30/20 07:05 Dose: Not Given Documented by: Hydroxyzine HCl (Atarax) 25 mg PO ONETIME ONE Stop: 03/30/20 02:01 Last Admin: 03/30/20 02:11 Dose: 25 mg Documented by: Sodium Chloride (Normal Saline) 1,000 mls @ 999 mls/hr IV .BOLUS ONE Stop: 03/29/20 19:26 Last Admin: 03/29/20 22:58 Dose: 999 mls/hr Documented by: Sodium Chloride (Normal Saline) 1,000 mls @ 999 mls/hr IV .BOLUS ONE Stop: 03/30/20 00:00 Last Admin: 03/30/20 00:22 Dose: Not Given Documented by: Sodium Chloride (Normal Saline) 1,000 mls @ 250 mls/hr IV ASDIRECTED [facility] Last Admin: 03/30/20 07:36 Dose: 250 mls/hr Documented by: Vancomycin HCl 1.25 gm/ Sodium (Chloride) 250 mls @ 166.667 mls/hr IV ONETIME ONE Stop: 03/30/20 02:29 Last Admin: 03/30/20 02:31 Dose: 166.667 mls/hr Documented by: Insulin Human Regular (Humulin R) 5 unit IV ONETIME ONE; Protocol Stop: 03/29/20 20:14 Last Admin: 03/29/20 20:41 Dose: 5 units Documented by: Insulin Human Regular (Humulin R) 5 unit IV ONETIME ONE Stop: 03/29/20 23:05 Last Admin: 03/30/20 01:00 Dose: 5 units Documented by: Insulin Human Regular (Humulin R) Confirm Administered Dose 300 unit .ROUTE .STK-MED ONE Stop: 03/30/20 00:54 Last Admin: 03/30/20 01:19 Dose: Not Given Documented by: Insulin Human Regular (Humulin R) 5 unit IV ONETIME ONE Stop: 03/30/20 02:06 Last Admin: 03/30/20 02:39 Dose: 5 units Documented by: Iopamidol (Isovue-300 (61%)) 100 ml IVPUSH ONETIME ONE Stop: 03/29/20 19:07 Lorazepam (Ativan) 2 mg IVPUSH Q2H PRN PRN Reason: Other Metoclopramide HCl (Reglan) 10 mg IVPUSH ONETIME ONE Stop: 03/29/20 22:53 Last Admin: 03/29/20 23:00 Dose: 10 mg Documented by: Morphine Sulfate (Morphine) 1 mg IVPUSH ONETIME ONE Stop: 03/30/20 01:32 Last Admin: 03/30/20 02:15 Dose: Not Given Documented by: Ondansetron HCl (Zofran) 4 mg IVPUSH ONETIME ONE Stop: 03/29/20 19:10 Last Admin: 03/29/20 19:40 Dose: 4 mg Documented by: Promethazine HCl (Phenergan) 25 mg IM ONETIME PRN PRN Reason: Nausea/Vomiting Last Admin: 03/29/20 21:18 Dose: 25 mg Documented by: - Exam General: Reports: Alert, Oriented HEENT: Reports: Pupils Equal, Pupils Reactive, EOMI, Mucous Membr. Moist/[place] Neck: Reports: Supple Lungs: Reports: Clear to Auscultation, Normal Respiratory Effort Cardiovascular: Reports: Regular Rate, Regular Rhythm GI/Abdominal Exam: Normal Bowel Sounds, Soft, Non-Tender, No Organomegaly, No Distention, No Abnormal Bruit, No Mass, Pelvis Stable (Male) Exam: No Hernia, Normal Inspection, Normal Prostate, Circumcised Rectal (Males) Exam: Normal Exam, Normal Rectal Tone, Prostate Normal Back Exam: Reports: Normal Inspection, Full Range of Motion Extremities: Normal Inspection, Normal Range of Motion, Non-Tender, No Pedal Edema, Normal Capillary Refill Skin: Reports: Warm, Dry, Intact Wound/Incisions: Reports: Healing Well Neurological: Reports: No New Focal Deficit Psy/Mental Status: Reports: Alert, Normal Affect, Normal Mood
[2020-03-31] MEDS: Ondansetron 4 MG/2 ML SDV IVPUSH PRN (12:44)
[2020-03-31 13:41] VITALS: BP 138/88; PULSE 80
== END 2020-03-31 13:41 | disposition home or self-care (01) ==
LOC: DL.ED 18:02 → DL.MS 23:50
PROVIDERS: ADMIT Student in an Organized Health Care Education/Training Program; ATTEND Student in an Organized Health Care Education/Training Program
DX: F19.10 Other psychoactive substance abuse, uncomplicated (principal); E11.65 Type 2 diabetes mellitus with hyperglycemia; A41.9 Sepsis, unspecified organism; F11.23 Opioid dependence with withdrawal; E87.2 Acidosis; Z20.822 Contact with and (suspected) exposure to COVID-19; I10 Essential (primary) hypertension; K21.9 Gastro-esophageal reflux disease without esophagitis; F17.210 Nicotine dependence, cigarettes, uncomplicated; M54.9 Dorsalgia, unspecified; G89.29 Other chronic pain; E87.1 Hypo-osmolality and hyponatremia; Z79.4 Long term (current) use of insulin; Z87.442 Personal history of urinary calculi; Z79.899 Other long term (current) drug therapy
CPT/HCPCS: 36415; 36600; 71045; 80048; 80053; 80202; 80305; 80307; 81001; 82009; 82803; 82962; 83605; 83735; 84100; 84132; 84145; 85025; 85027; 86140; 87040; 87086; 87635; 96361; 96365; 96366; 96367; 96372; 96375; 96376; 99285; A9270; G0378; J1644; J1815; J2405; J2543; J2550; J2765; J3010; J3370; J3490; J7030; J7050; 96374; 99217; 99218; 99284; U0002

== ENCOUNTER 2020-06-23 11:13 | Emergency (ER) | payer MEDICAID ==
[2020-06-23] MEDS ORDERED: Ondansetron 4 MG/2 ML SDV IVPUSH ONE (11:27)
[2020-06-23] MEDS ORDERED: Sodium Chloride 0.9% 1,000 ML IV ONE (11:29)
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
[2020-06-23 12:04] VITALS: BP 125/65; PULSE 108
[2020-06-23 12:11] LABS: ANION GAP 19.2 mEq/L (7-13); CHLORIDE,CL 98 mmol/L (98-107); SODIUM,NA 136 mmol/L (136-145)
[2020-06-23 12:12] LABS: ACETAMINOPHEN 0 ug/mL (10-30 (Therapeutic))
[2020-06-23 12:29] LABS: CORONAVIRUS COVID-19 NAA NEGATIVE (NEGATIVE)
[2020-06-23] MEDS ORDERED: Metoclopramide 10 MG/2 ML SDV IVPUSH ONE (12:48)
--- NOTE | 2020-06-23 13:22 | CT ---
EXAMINATION: Abdomen Pelvis wo Cont SEX: Male AGE: 34 years CLINICAL HISTORY: 34-year-old 160 pound male with abdominal pain. No known surgeries. Hypertensive diabetic male "smoker" reported to have "suspicious gallbladder" on CT exam January, (for clinical elevated LFTs/leukocytosis). Scan technique: Unenhanced screening CT scan abdomen and pelvis obtained with the patient lying supine on the Siemens multislice scanner [place], [place]. All data archived in the PACS system for storage, reformatting and study. Interpretation: 1. Unenhanced gallbladder, liver, stomach, spleen, pancreas and adrenal glands unremarkable. 2. Symmetric normal reniform size, axis and configuration. No renal stones or signs of obstructive uropathy. Unenhanced exam reveals no sign of cystic or solid renal cortical mass lesion. Symmetrically distended unenhanced urinary bladder. 3. Normal caliber aortoiliac vessels. No aneurysm or dissection. Multilevel lower thoracic disc disease/arthritis. 4. No abdominal or pelvic mass lesion. No mesenteric or retroperitoneal lymphadenopathy. No inflammatory "dirty" peritoneal fat, signs of mechanical bowel obstruction, ascites or free intraperitoneal air. Normal appendix RLQ. 5. Lung bases clear. Normal cardiac silhouette. No pericardial or pleural effusions. CONCLUSION: Negative unenhanced CT scan abdomen and pelvis.
== END 2020-06-23 13:30 | disposition home or self-care (01) ==
LOC: DL.ED 11:13
DX: K52.9 Noninfective gastroenteritis and colitis, unspecified (principal); I10 Essential (primary) hypertension; K21.9 Gastro-esophageal reflux disease without esophagitis; E11.9 Type 2 diabetes mellitus without complications; Z79.84 Long term (current) use of oral hypoglycemic drugs; Z79.899 Other long term (current) drug therapy; Z20.822 Contact with and (suspected) exposure to COVID-19
CPT/HCPCS: 0240U; 36415; 74176; 80053; 80143; 80179; 80305-QW; 80307; 81001; 82009; 82150; 82947; 83605; 83690; 83735; 85025; 87040; 96374; 96375; 99283; 99285-25; J2405; J2765; J7030

== ENCOUNTER 2021-02-09 17:14 | Emergency (ER) | payer MEDICAID ==
[2021-02-09 17:31] VITALS: BP 110/88; PULSE 120
[2021-02-09 20:27] LABS: CORONAVIRUS COVID-19 NAA NEGATIVE (NEGATIVE)
== END 2021-02-09 20:21 | disposition left against medical advice (07) ==
LOC: DL.ED 17:14
DX: Z53.21 Procedure and treatment not carried out due to patient leaving prior to being seen by health care provider (principal)
CPT/HCPCS: 0240U; 99285

== ENCOUNTER 2021-02-09 23:46 | Emergency (ER) | payer MEDICAID ==
[2021-02-09 23:52] VITALS: BP 155/73; PULSE 78
[2021-02-10] MEDS ORDERED: Sodium Chloride 0.9% 10 ML Syringe FLUSH PRN (00:03)
[2021-02-10] MEDS ORDERED: Sodium Chloride 0.9% 1,000 ML IV ONE ×4 (00:04→05:31)
[2021-02-10] MEDS ORDERED: Haloperidol Lactate 5 MG/ML SDV IVPUSH ONE (00:10)
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
[2021-02-10 00:45] LABS: AMPHETAMINES,URINE NEGATIVE (NEGATIVE); BARBITURATES,URINE NEGATIVE (NEGATIVE); BENZODIAZEPINE,URINE NEGATIVE (NEGATIVE); MDMA (ECSTASY), URINE NEGATIVE (NEGATIVE); METHADONE,URINE NEGATIVE (NEGATIVE); METHAMPHETAMINES,URINE POSITIVE (NEGATIVE); OPIATES,URINE NEGATIVE (NEGATIVE); OXYCODONE,URINE POSITIVE (NEGATIVE); PHENCYCLIDINE,URINE NEGATIVE (NEGATIVE); TCA,URINE NEGATIVE (NEGATIVE)
[2021-02-10 00:55] LABS: ANION GAP 30.7 mEq/L (7-13); CHLORIDE,CL 89 mmol/L (98-107); SODIUM,NA 130 mmol/L (136-145)
[2021-02-10] MEDS ORDERED: Glucagon,Human Recombinant 1 MG Vial IM PRN ×3 (01:08→03:52)
[2021-02-10] MEDS ORDERED: 50% Dextrose in Water 50 ML Syringe IVPUSH PRN ×3 (01:08→03:52)
[2021-02-10] MEDS ORDERED: Insulin Regular, Human 100 Units/ML 3 ML Vial IV ONE ×3 (01:08→03:52)
[2021-02-10 04:38] LABS: ANION GAP 20.2 mEq/L (7-13); CHLORIDE,CL 102 mmol/L (98-107); SODIUM,NA 139 mmol/L (136-145)
== END 2021-02-10 06:25 | disposition home or self-care (01) ==
LOC: DL.ED 23:46
DX: R11.2 Nausea with vomiting, unspecified (principal); T40.715A Adverse effect of cannabis, initial encounter; N17.9 Acute kidney failure, unspecified; E11.65 Type 2 diabetes mellitus with hyperglycemia; E11.10 Type 2 diabetes mellitus with ketoacidosis without coma; F15.10 Other stimulant abuse, uncomplicated; I10 Essential (primary) hypertension; K21.9 Gastro-esophageal reflux disease without esophagitis; Z72.0 Tobacco use; Z79.4 Long term (current) use of insulin; Z79.899 Other long term (current) drug therapy
CPT/HCPCS: 36415; 80053; 80305; 80307; 81001; 82947; 83605; 85025; 86140; 96374; 99284; J1630; J1815; J7030

== ENCOUNTER 2021-02-11 15:07 | Emergency (ER) | payer MEDICAID ==
[2021-02-11] MEDS ORDERED: Metoclopramide 10 MG Tab PO ONE (15:08)
[2021-02-11 15:25] VITALS: BP 158/89; PULSE 74
[2021-02-11] MEDS ORDERED: Sodium Chloride 0.9% 10 ML Syringe FLUSH PRN (15:26)
[2021-02-11] MEDS ORDERED: Ondansetron 4 MG/2 ML SDV IV ONE (15:27)
[2021-02-11] MEDS ORDERED: Sodium Chloride 0.9% 1,000 ML IV ONE ×2 (15:27→16:26)
--- NOTE | 2021-02-11 15:56 | CR ---
PROCEDURE INFORMATION: Exam: XR Chest Exam date and time: 02/11/2021 3:34 PM Age: 35 years old Clinical indication: Other: Chest pain TECHNIQUE: Imaging protocol: XR of the chest. Views: 1 view. COMPARISON: CR Chest 1V Frontal 03/30/2020 1:58 AM FINDINGS: Lungs: Unremarkable. No consolidation. Pleural spaces: Unremarkable. No pleural effusion. No pneumothorax. Heart/Mediastinum: Unremarkable. No cardiomegaly. Bones/joints: Unremarkable. IMPRESSION: No acute findings.
[2021-02-11 16:08] LABS: BICARBONATE,VENOUS 16 mmol/l (19-25); O2 DELIVERY DEVICE ROOM AIR; O2 SATURATION VENOUS 44.4 % (60-80); PCO2 VENOUS 22 mmHg (41-51); PH,VENOUS 7.48 (7.31-7.41); PO2 VENOUS 31 mmHg (35-42)
[2021-02-11 16:11] LABS: O2 FLOW RATE 0
[2021-02-11] MEDS ORDERED: LORazepam 2 MG/ML SDV IVPUSH ONE (16:26)
[2021-02-11] MEDS ORDERED: Metoclopramide 10 MG/2 ML SDV IVPUSH ONE (16:26)
[2021-02-11 16:37] LABS: ANION GAP 25.7 mEq/L (7-13); CHLORIDE,CL 98 mmol/L (98-107); SODIUM,NA 136 mmol/L (136-145)
[2021-02-11 17:03] LABS: AMPHETAMINES,URINE NEGATIVE (NEGATIVE); BARBITURATES,URINE NEGATIVE (NEGATIVE); BENZODIAZEPINE,URINE NEGATIVE (NEGATIVE); MDMA (ECSTASY), URINE NEGATIVE (NEGATIVE); METHADONE,URINE NEGATIVE (NEGATIVE); METHAMPHETAMINES,URINE POSITIVE (NEGATIVE); OPIATES,URINE NEGATIVE (NEGATIVE); OXYCODONE,URINE NEGATIVE (NEGATIVE); PHENCYCLIDINE,URINE NEGATIVE (NEGATIVE); TCA,URINE NEGATIVE (NEGATIVE)
[2021-02-11] MEDS ORDERED: Metoclopramide 10 MG Tab ONE (18:00)
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
== END 2021-02-11 18:27 | disposition home or self-care (01) ==
LOC: DL.ED 15:07
DX: R11.2 Nausea with vomiting, unspecified (principal); T40.715A Adverse effect of cannabis, initial encounter; E11.65 Type 2 diabetes mellitus with hyperglycemia; I10 Essential (primary) hypertension; K21.9 Gastro-esophageal reflux disease without esophagitis; Z79.899 Other long term (current) drug therapy; Z79.84 Long term (current) use of oral hypoglycemic drugs
CPT/HCPCS: 36415; 71045; 80053; 80305; 80307; 81001; 82009; 82150; 82803; 82947; 83605; 83690; 83735; 84100; 84484; 85025; 87040; 93005; 96374; 96375; 99285; A9270; J2060; J2405; J2765; J7030

== ENCOUNTER 2021-02-15 15:51 | Emergency (ER) | payer SELFPAY ==
[2021-02-15] MEDS ORDERED: Haloperidol Lactate 5 MG/ML SDV IVPUSH ONE (18:07)
[2021-02-15] MEDS ORDERED: diphenhydrAMINE 50 MG/ML SDV IVPUSH ONE (18:08)
[2021-02-15] MEDS ORDERED: Sodium Chloride 0.9% 1,000 ML IV ONE (18:22)
[2021-02-15 18:23] VITALS: BP 143/107; PULSE 63
[2021-02-15 19:04] LABS: ANION GAP 16.4 mEq/L (7-13); CHLORIDE,CL 103 mmol/L (98-107); SODIUM,NA 141 mmol/L (136-145)
[2021-02-15] MEDS ORDERED: Iopamidol 612 MG/ML 100 ML Bottle IVPUSH ONE (19:11)
[2021-02-15] MEDS ORDERED: LORazepam 2 MG/ML SDV IVPUSH ONE (19:14)
--- NOTE | 2021-02-15 20:00 | CT ---
PROCEDURE INFORMATION: Exam: CT Abdomen And Pelvis With Contrast Exam date and time: 02/15/2021 7:26 PM Age: 35 years old Clinical indication: Other: Abd pain TECHNIQUE: Imaging protocol: Computed tomography of the abdomen and pelvis with contrast. Radiation optimization: All CT scans at this facility use at least one of these dose optimization techniques: automated exposure control; mA and/or kV adjustment per patient size (includes targeted exams where dose is matched to clinical indication); or iterative reconstruction. Contrast material: ISOVUE 300; Contrast volume: 100 ml; Contrast route: INTRAVENOUS (IV); COMPARISON: CT Abdomen Pelvis wo Cont 05/22/2019 11:29 PM FINDINGS: Liver: The liver is normal in architecture, without suspicious abnormality. Gallbladder and bile ducts: No calcified gallstones. No ductal dilation. Pancreas: The pancreatic parenchyma is normal in bulk and sharply marginated. Duct is not dilated. No calcifications, masses, or abnormal fluid collections. Spleen: Spleen is normal in size. No mass or fluid collection. Adrenal glands: There are no adrenal masses. Kidneys and ureters: Normal in parenchymal bulk. No hydronephrosis or asymmetric perinephric stranding. No solid masses. No stones. Stomach and bowel: No significant abnormalities of the stomach. There are no dilated or thickened small bowel loops. Gas and stool are seen in the colon to the rectum. No mass. Appendix: There is no evidence for appendicitis. Intraperitoneal space: No ascites. No abscess. No inflammation within the intra-abdominal fat. No pneumoperitoneum. No mass. Vasculature: No aneurysm. Lymph nodes: There are no enlarged celiac, mesenteric, periportal, extraperitoneal or inguinal lymph nodes. Urinary bladder: There is no bladder wall thickening, mass, or calculus. Reproductive: Prostate gland is normal in size. The seminal vesicles are unremarkable. Bones/joints: Age appropriate spondylosis. There are no suspicious lytic or osteosclerotic lesions. There are no acute fractures. Soft tissues: No suspicious soft tissue masses, soft tissue gas of significance, or hernia. IMPRESSION: 1. No sign of acute intra-abdominal pathology. 2. Previously, bladder wall thickening was questioned. Today, the bladder is normal in appearance.
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
== END 2021-02-15 20:32 | disposition home or self-care (01) ==
LOC: DL.ED 15:51
DX: R11.2 Nausea with vomiting, unspecified (principal); T40.715A Adverse effect of cannabis, initial encounter; I10 Essential (primary) hypertension; K21.9 Gastro-esophageal reflux disease without esophagitis; E11.9 Type 2 diabetes mellitus without complications; Z79.899 Other long term (current) drug therapy; Z79.84 Long term (current) use of oral hypoglycemic drugs; Z72.0 Tobacco use
CPT/HCPCS: 36415; 74177; 80053; 82150; 83690; 85025; 96374; 96375; 99284; J1200; J1630; J7030; Q9967

== ENCOUNTER 2021-03-04 08:45 | Emergency (ER) | payer MEDICAID ==
[2021-03-04] MEDS ORDERED: Ondansetron 4 MG/2 ML SDV IVPUSH ONE (09:21)
[2021-03-04] MEDS: Sodium Chloride 0.9% 1,000 ML IV ONE ×2 (09:27→10:08)
[2021-03-04 09:54] LABS: ANION GAP 19.2 mEq/L (7-13); CHLORIDE,CL 99 mmol/L (98-107); SODIUM,NA 137 mmol/L (136-145)
[2021-03-04] MEDS ORDERED: Sodium Chloride 0.9% 1,000 ML IV ONE (10:00)
[2021-03-04] MEDS ORDERED: Haloperidol Lactate 5 MG/ML SDV IVPUSH ONE (10:02)
[2021-03-04 10:13] LABS: CORONAVIRUS COVID-19 NAA NEGATIVE (NEGATIVE)
[2021-03-04 12:14] LABS: AMPHETAMINES,URINE NEGATIVE (NEGATIVE); BARBITURATES,URINE NEGATIVE (NEGATIVE); BENZODIAZEPINE,URINE NEGATIVE (NEGATIVE); MDMA (ECSTASY), URINE NEGATIVE (NEGATIVE); METHADONE,URINE NEGATIVE (NEGATIVE); METHAMPHETAMINES,URINE POSITIVE (NEGATIVE); OPIATES,URINE NEGATIVE (NEGATIVE); OXYCODONE,URINE POSITIVE (NEGATIVE); PHENCYCLIDINE,URINE NEGATIVE (NEGATIVE); TCA,URINE NEGATIVE (NEGATIVE)
[2021-03-04] MEDS ORDERED: GI Cocktail Oral Solution 30 ML PO ONE (12:23)
[2021-03-04 13:10] VITALS: BP 151/90; PULSE 77
== END 2021-03-04 13:27 | disposition home or self-care (01) ==
LOC: DL.ED 08:45
DX: E86.0 Dehydration (principal); E13.65 Other specified diabetes mellitus with hyperglycemia; N17.9 Acute kidney failure, unspecified; F15.90 Other stimulant use, unspecified, uncomplicated; R11.2 Nausea with vomiting, unspecified; R12 Heartburn; I10 Essential (primary) hypertension; K21.9 Gastro-esophageal reflux disease without esophagitis; Z79.84 Long term (current) use of oral hypoglycemic drugs; Z79.899 Other long term (current) drug therapy; Z20.822 Contact with and (suspected) exposure to COVID-19
CPT/HCPCS: 0240U; 36415; 80053; 80305; 80307; 81001; 82009; 82150; 83605; 83690; 83735; 85025; 86140; 96374; 96375; 99284; A9270; J1630; J2405; J7030

== ENCOUNTER 2021-04-08 00:31 | Emergency (ER) | payer BC ==
[~2021-04-08 00:31] MED LIST changes: +Haloperidol Lactate 5 MG/ML SDV IVPUSH ONE; +Haloperidol Lactate 5 MG/ML SDV ONE; -Metoclopramide 10 MG/2 ML SDV IVPUSH ONE; +Promethazine 25 MG/ML SDV IM ONE
[2021-04-08 00:43] LABS: ANION GAP 22.9 mEq/L (7-13); CHLORIDE,CL 97 mmol/L (98-107); SODIUM,NA 135 mmol/L (136-145)
[2021-04-08] MEDS ORDERED: Iopamidol 612 MG/ML 100 ML Bottle IVPUSH ONE (01:18)
[2021-04-08] MEDS ORDERED: Sodium Chloride 0.9% 1,000 ML IV ONE ×2 (01:18→03:26)
[2021-04-08] MEDS ORDERED: Metoclopramide 10 MG/2 ML SDV IVPUSH ONE (03:04)
[2021-04-08] MEDS ORDERED: Ketorolac 30 MG/ML SDV IVPUSH ONE (03:27)
[2021-04-08 03:51] LABS: MDMA (ECSTASY), URINE NEGATIVE (NEGATIVE); METHAMPHETAMINES,URINE POSITIVE (NEGATIVE)
[2021-04-08 03:52] LABS: AMPHETAMINES,URINE POSITIVE (NEGATIVE); BARBITURATES,URINE NEGATIVE (NEGATIVE); BENZODIAZEPINE,URINE NEGATIVE (NEGATIVE); METHADONE,URINE NEGATIVE (NEGATIVE); OPIATES,URINE NEGATIVE (NEGATIVE); OXYCODONE,URINE NEGATIVE (NEGATIVE); PHENCYCLIDINE,URINE NEGATIVE (NEGATIVE); TCA,URINE POSITIVE (NEGATIVE)
[2021-04-08 04:28] VITALS: BP 141/84; PULSE 78
[2021-04-08] MEDS ORDERED: Piperacillin/Tazobactam 3.375 GM in Sodium Chloride 0.9% 100 ML IV ONE (04:31)
== END 2021-04-08 05:42 ==
LOC: DL.ED 00:31
DX: A41.9 Sepsis, unspecified organism (principal); K21.9 Gastro-esophageal reflux disease without esophagitis; I10 Essential (primary) hypertension; E11.9 Type 2 diabetes mellitus without complications; Z79.899 Other long term (current) drug therapy
CPT/HCPCS: 36415; 74177; 80053; 80305-QW; 80307; 81001; 83605; 83690; 85025; 86140; 87040; 96365; 96368; 96372; 96375; 99285-25; J1630; J1885; J2543; J2550; J2765; J3370; J7030; J7050; Q9967; U0002

== ENCOUNTER 2021-04-23 15:27 | Emergency (ER) | payer MEDICAID ==
[2021-04-23] MEDS ORDERED: Ondansetron 4 MG Tab.DIS PO ONE (15:28)
[2021-04-23 16:27] VITALS: BP 157/116; PULSE 105
[2021-04-23 17:40] LABS: ANION GAP 16.6 mEq/L (7-13); CHLORIDE,CL 93 mmol/L (98-107); ESTIMATED GFR 32; SODIUM,NA 130 mmol/L (136-145)
[2021-04-23 17:43] LABS: AMPHETAMINES,URINE NEGATIVE (NEGATIVE); BARBITURATES,URINE NEGATIVE (NEGATIVE); BENZODIAZEPINE,URINE NEGATIVE (NEGATIVE); MDMA (ECSTASY), URINE NEGATIVE (NEGATIVE); METHADONE,URINE NEGATIVE (NEGATIVE); METHAMPHETAMINES,URINE POSITIVE (NEGATIVE); OPIATES,URINE NEGATIVE (NEGATIVE); OXYCODONE,URINE NEGATIVE (NEGATIVE); PHENCYCLIDINE,URINE NEGATIVE (NEGATIVE); TCA,URINE NEGATIVE (NEGATIVE)
[2021-04-23] MEDS ORDERED: Sodium Chloride 0.9% 1,000 ML IV ONE (18:05)
[2021-04-23] MEDS ORDERED: Ondansetron 4 MG/2 ML SDV IVPUSH ONE (18:11)
[2021-04-23] MEDS ORDERED: Insulin Regular, Human 100 Units/ML 3 ML Vial IV ONE (18:12)
[2021-04-23] MEDS ORDERED: Glucagon,Human Recombinant 1 MG Vial IM PRN (18:12)
[2021-04-23] MEDS ORDERED: 50% Dextrose in Water 50 ML Syringe IVPUSH PRN (18:12)
[2021-04-23] MEDS ORDERED: Ondansetron 4 MG Tab.DIS ONE (19:57)
== END 2021-04-23 20:10 | disposition home or self-care (01) ==
LOC: DL.ED 15:27
DX: E11.65 Type 2 diabetes mellitus with hyperglycemia (principal); R06.6 Hiccough; I10 Essential (primary) hypertension; K21.9 Gastro-esophageal reflux disease without esophagitis; Z79.899 Other long term (current) drug therapy
CPT/HCPCS: 36415; 80053; 80305; 80307; 81001; 82009; 82947; 83605; 83735; 85025; 86140; 96374; 96375; 99284; A9270; J1815; J2405; J7030; 99283

== ENCOUNTER 2021-07-12 05:59 | Emergency (ER) | payer MEDICAID ==
[2021-07-12 06:17] VITALS: BP 112/72; PULSE 110
[2021-07-12 06:51] LABS: ANION GAP 14.6 mEq/L (7-13); CHLORIDE,CL 102 mmol/L (98-107); SODIUM,NA 139 mmol/L (136-145)
[2021-07-12 07:58] LABS: CORONAVIRUS COVID-19 NAA NEGATIVE (NEGATIVE)
== END 2021-07-12 08:15 | disposition home or self-care (01) ==
LOC: DL.ED 05:59
DX: R07.9 Chest pain, unspecified (principal); I10 Essential (primary) hypertension; K21.9 Gastro-esophageal reflux disease without esophagitis; E11.9 Type 2 diabetes mellitus without complications; Z79.899 Other long term (current) drug therapy; Z79.84 Long term (current) use of oral hypoglycemic drugs; Z20.822 Contact with and (suspected) exposure to COVID-19
CPT/HCPCS: 0240U; 36415; 71045; 80053; 80307; 84484; 85025; 85379; 93005; 93010; 99284; 99285

== ENCOUNTER 2021-07-13 22:21 | Emergency (ER) | payer MEDICAID ==
[2021-07-13] MEDS ORDERED: LORazepam 2 MG/ML SDV IVPUSH ONE (22:56)
[2021-07-13] MEDS ORDERED: Sodium Chloride 0.9% 1,000 ML IV ONE (22:56)
[2021-07-13] MEDS ORDERED: LORazepam 2 MG/ML SDV ONE (22:56)
[2021-07-13] MEDS ORDERED: Glucagon,Human Recombinant 1 MG Vial IM PRN (23:01)
[2021-07-13] MEDS ORDERED: 50% Dextrose in Water 50 ML Syringe IVPUSH PRN (23:01)
[2021-07-13] MEDS ORDERED: Insulin Regular, Human 100 Units/ML 3 ML Vial IV ONE (23:01)
[2021-07-13] MEDS ORDERED: Ondansetron 4 MG/2 ML SDV IVPUSH ONE (23:03)
[2021-07-13] MEDS ORDERED: Ondansetron 4 MG/2 ML SDV ONE (23:04)
[2021-07-13 23:28] VITALS: BP 173/111; PULSE 98
[2021-07-13 23:57] LABS: ANION GAP 20.4 mEq/L (7-13); CHLORIDE,CL 89 mmol/L (98-107); SODIUM,NA 127 mmol/L (136-145)
[2021-07-14] MEDS ORDERED: Famotidine 20 MG/2 ML SDV IVPUSH ONE (00:36)
[2021-07-14] MEDS ORDERED: LORazepam 2 MG/ML SDV IVPUSH ONE ×2 (00:38→00:43)
[2021-07-14 02:05] LABS: O2 DELIVERY DEVICE ROOM AIR
[2021-07-14 02:10] LABS: BICARBONATE,VENOUS 28 mmol/l (19-25); O2 SATURATION VENOUS 56 % (60-80); PCO2 VENOUS 46 mmHg (41-51); PH,VENOUS 7.41 (7.31-7.41); PO2 VENOUS 32 mmHg (35-42)
[2021-07-14] MEDS ORDERED: Metoclopramide 10 MG/2 ML SDV IVPUSH ONE (02:14)
[2021-07-14 02:30] LABS: BENZODIAZEPINE,URINE POSITIVE (NEGATIVE); MDMA (ECSTASY), URINE NEGATIVE (NEGATIVE); METHADONE,URINE NEGATIVE (NEGATIVE); METHAMPHETAMINES,URINE POSITIVE (NEGATIVE); OPIATES,URINE NEGATIVE (NEGATIVE)
[2021-07-14 02:31] LABS: AMPHETAMINES,URINE POSITIVE (NEGATIVE); BARBITURATES,URINE NEGATIVE (NEGATIVE); OXYCODONE,URINE NEGATIVE (NEGATIVE); PHENCYCLIDINE,URINE NEGATIVE (NEGATIVE); TCA,URINE NEGATIVE (NEGATIVE)
== END 2021-07-14 03:20 | disposition left against medical advice (07) ==
LOC: DL.ED 22:21
DX: R11.0 Nausea (principal); F15.10 Other stimulant abuse, uncomplicated; I10 Essential (primary) hypertension; E11.9 Type 2 diabetes mellitus without complications; Z79.899 Other long term (current) drug therapy; Z79.84 Long term (current) use of oral hypoglycemic drugs
CPT/HCPCS: 36415; 74176; 80053; 80305-QW; 80307; 82009; 82150; 82803; 82947; 83605; 83690; 85025; 87040; 96361; 96374; 96375; 96376; 99284-25; J1815-GY; J2060; J2405; J2765; J3490; J7030

== ENCOUNTER 2021-07-14 20:26 | Emergency (ER) | payer MEDICAID ==
[2021-07-14 20:52] VITALS: BP 174/97; PULSE 102
[2021-07-14] MEDS ORDERED: LORazepam 2 MG/ML SDV IVPUSH ONE (22:03)
[2021-07-14] MEDS ORDERED: Sodium Chloride 0.9% 1,000 ML IV ONE (22:05)
[2021-07-14] MEDS ORDERED: Haloperidol Lactate 5 MG/ML SDV IM ONE (22:06)
[2021-07-14] MEDS ORDERED: diphenhydrAMINE 50 MG/ML SDV IVPUSH ONE (22:09)
[2021-07-14 22:31] LABS: AMPHETAMINES,URINE POSITIVE (NEGATIVE); BARBITURATES,URINE NEGATIVE (NEGATIVE); BENZODIAZEPINE,URINE POSITIVE (NEGATIVE); MDMA (ECSTASY), URINE NEGATIVE (NEGATIVE); METHADONE,URINE NEGATIVE (NEGATIVE); METHAMPHETAMINES,URINE POSITIVE (NEGATIVE); OPIATES,URINE NEGATIVE (NEGATIVE); OXYCODONE,URINE NEGATIVE (NEGATIVE); PHENCYCLIDINE,URINE NEGATIVE (NEGATIVE); TCA,URINE NEGATIVE (NEGATIVE)
[2021-07-15] MEDS ORDERED: 50% Dextrose in Water 50 ML Syringe IVPUSH PRN (00:28)
[2021-07-15] MEDS ORDERED: Insulin Regular, Human 100 Units/ML 3 ML Vial SUBCUT ONE (00:28)
[2021-07-15] MEDS ORDERED: Glucagon,Human Recombinant 1 MG Vial IM PRN (00:28)
== END 2021-07-15 00:55 | disposition home or self-care (01) ==
LOC: DL.ED 20:26
DX: F41.9 Anxiety disorder, unspecified (principal); F15.10 Other stimulant abuse, uncomplicated; E11.65 Type 2 diabetes mellitus with hyperglycemia; I10 Essential (primary) hypertension; K21.9 Gastro-esophageal reflux disease without esophagitis; Z79.84 Long term (current) use of oral hypoglycemic drugs; Z79.899 Other long term (current) drug therapy
CPT/HCPCS: 80305; 82947; 96361; 96372; 96374; 96375; 99283; J1200; J1630; J1815; J2060; J7030

== ENCOUNTER 2021-07-19 23:35 | Emergency (ER) | payer MEDICAID ==
[2021-07-20 00:19] LABS: ANION GAP 18.4 mEq/L (7-13); CHLORIDE,CL 100 mmol/L (98-107); SODIUM,NA 139 mmol/L (136-145)
[2021-07-20 00:22] LABS: ACETAMINOPHEN 0 ug/mL (10-30 (Therapeutic)); ESTIMATED GFR 54
[2021-07-20] MEDS ORDERED: Ondansetron 4 MG/2 ML SDV IVPUSH ONE (00:34)
[2021-07-20] MEDS ORDERED: Pantoprazole 40 MG Vial IVPUSH ONE (00:34)
[2021-07-20] MEDS ORDERED: LORazepam 2 MG/ML SDV IVPUSH ONE (00:34)
[2021-07-20] MEDS ORDERED: Sodium Chloride 0.9% 1,000 ML IV ONE (00:35)
[2021-07-20 00:43] LABS: AMPHETAMINES,URINE NEGATIVE (NEGATIVE); BARBITURATES,URINE NEGATIVE (NEGATIVE); BENZODIAZEPINE,URINE NEGATIVE (NEGATIVE); MDMA (ECSTASY), URINE NEGATIVE (NEGATIVE); METHADONE,URINE NEGATIVE (NEGATIVE); METHAMPHETAMINES,URINE POSITIVE (NEGATIVE); OPIATES,URINE NEGATIVE (NEGATIVE); OXYCODONE,URINE NEGATIVE (NEGATIVE); PHENCYCLIDINE,URINE NEGATIVE (NEGATIVE); TCA,URINE NEGATIVE (NEGATIVE)
[2021-07-20] MEDS ORDERED: Iopamidol 612 MG/ML 100 ML Bottle IVPUSH ONE (01:11)
[2021-07-20 02:53] VITALS: BP 143/103; PULSE 118
== END 2021-07-20 03:30 | disposition home or self-care (01) ==
LOC: DL.ED 23:35
DX: R10.84 Generalized abdominal pain (principal); K59.01 Slow transit constipation; F15.10 Other stimulant abuse, uncomplicated; K21.9 Gastro-esophageal reflux disease without esophagitis; I10 Essential (primary) hypertension; E11.9 Type 2 diabetes mellitus without complications; Z79.899 Other long term (current) drug therapy; Z79.84 Long term (current) use of oral hypoglycemic drugs
CPT/HCPCS: 36415; 74177; 80053; 80143; 80179; 80305; 80307; 81001; 82140; 82150; 83605; 83690; 83735; 84484; 85025; 87040; 87077; 93005; 96361; 96374; 96375; 99284; C9113; J2060; J2405; J7030; Q9967

== ENCOUNTER 2021-09-01 09:43 | Emergency (ER) | payer MEDICAID ==
[2021-09-01] MEDS ORDERED: Ondansetron 4 MG/2 ML SDV IVPUSH ONE (10:04)
[2021-09-01 10:22] VITALS: BP 155/120; PULSE 107
[2021-09-01] MEDS: Sodium Chloride 0.9% 10 ML Syringe FLUSH PRN ×2 (10:22→13:11)
[2021-09-01] MEDS ORDERED: Sodium Chloride 0.9% 1,000 ML IV ONE ×2 (10:52→12:23)
[2021-09-01] MEDS ORDERED: GI Cocktail Oral Solution 30 ML PO ONE (11:06)
[2021-09-01] MEDS ORDERED: Metoclopramide 10 MG/2 ML SDV IVPUSH ONE (11:06)
[2021-09-01] MEDS ORDERED: Famotidine 20 MG/2 ML SDV IVPUSH ONE (11:06)
[2021-09-01 11:30] LABS: CHLORIDE,CL 95 mmol/L (98-107)
[2021-09-01 11:34] LABS: ESTIMATED GFR 55 mL/min (>=60)
[2021-09-01 11:37] LABS: SODIUM,NA 130 mmol/L (136-145)
[2021-09-01 11:56] LABS: CORONAVIRUS COVID-19 NAA NEGATIVE (NEGATIVE)
[2021-09-01 13:10] LABS: AMPHETAMINES,URINE POSITIVE (NEGATIVE); BARBITURATES,URINE NEGATIVE (NEGATIVE); BENZODIAZEPINE,URINE NEGATIVE (NEGATIVE); MDMA (ECSTASY), URINE NEGATIVE (NEGATIVE); METHADONE,URINE NEGATIVE (NEGATIVE); METHAMPHETAMINES,URINE POSITIVE (NEGATIVE); OPIATES,URINE NEGATIVE (NEGATIVE); OXYCODONE,URINE NEGATIVE (NEGATIVE); PHENCYCLIDINE,URINE NEGATIVE (NEGATIVE); TCA,URINE NEGATIVE (NEGATIVE)
== END 2021-09-01 14:41 | disposition home or self-care (01) ==
LOC: DL.ED 09:43
DX: F12.188 Cannabis abuse with other cannabis-induced disorder (principal); F15.10 Other stimulant abuse, uncomplicated; K21.9 Gastro-esophageal reflux disease without esophagitis; I10 Essential (primary) hypertension; E11.9 Type 2 diabetes mellitus without complications; F17.210 Nicotine dependence, cigarettes, uncomplicated; Z79.899 Other long term (current) drug therapy; Z20.822 Contact with and (suspected) exposure to COVID-19
CPT/HCPCS: 0240U; 36415; 80053; 80305; 80307; 81001; 82009; 82150; 82947; 83605; 83690; 83735; 84145; 85025; 86140; 96361; 96374; 96375; 99284; A9270; J2405; J2765; J3490; J7030; 99283

== ENCOUNTER 2021-09-19 13:58 | Emergency (ER) | payer MEDICAID ==
[2021-09-19] MEDS ORDERED: Sodium Chloride 0.9% 10 ML Syringe FLUSH PRN (15:06)
[2021-09-19] MEDS ORDERED: diphenhydrAMINE 50 MG/ML SDV IVPUSH ONE (15:07)
[2021-09-19] MEDS ORDERED: Famotidine 20 MG/2 ML SDV IVPUSH ONE (15:07)
[2021-09-19] MEDS ORDERED: LORazepam 2 MG/ML SDV IVPUSH ONE ×2 (15:08→15:38)
[2021-09-19] MEDS ORDERED: Metoclopramide 10 MG/2 ML SDV IVPUSH ONE (15:09)
[2021-09-19] MEDS ORDERED: Sodium Chloride 0.9% 1,000 ML IV ONE (15:09)
[2021-09-19 15:10] VITALS: BP 171/142; PULSE 88
[2021-09-19 15:49] LABS: AMPHETAMINES,URINE NEGATIVE (NEGATIVE); BARBITURATES,URINE NEGATIVE (NEGATIVE); BENZODIAZEPINE,URINE NEGATIVE (NEGATIVE); MDMA (ECSTASY), URINE NEGATIVE (NEGATIVE); METHADONE,URINE NEGATIVE (NEGATIVE); METHAMPHETAMINES,URINE NEGATIVE (NEGATIVE); OPIATES,URINE NEGATIVE (NEGATIVE); OXYCODONE,URINE NEGATIVE (NEGATIVE); PHENCYCLIDINE,URINE NEGATIVE (NEGATIVE); TCA,URINE NEGATIVE (NEGATIVE)
[2021-09-19 15:54] LABS: ANION GAP 11.9 mEq/L (7-13); CHLORIDE,CL 102 mmol/L (98-107); SODIUM,NA 135 mmol/L (136-145)
[2021-09-19 15:56] LABS: ESTIMATED GFR 94 mL/min (>=60)
== END 2021-09-19 17:35 | disposition home or self-care (01) ==
LOC: DL.ED 13:58
DX: R10.84 Generalized abdominal pain (principal); F12.188 Cannabis abuse with other cannabis-induced disorder; F19.10 Other psychoactive substance abuse, uncomplicated; I10 Essential (primary) hypertension; K21.9 Gastro-esophageal reflux disease without esophagitis; Z79.899 Other long term (current) drug therapy; Z79.84 Long term (current) use of oral hypoglycemic drugs
CPT/HCPCS: 36415; 80053; 80305-QW; 80307; 81001; 82150; 85025; 96374; 96375; 99284-25; J1200; J2060; J2765; J3490; J7030

== ENCOUNTER 2022-02-06 09:39 | Emergency (ER) | payer MEDICAID ==
[2022-02-06] MEDS ORDERED: Metoclopramide 10 MG/2 ML SDV IVPUSH ONE (09:51)
[2022-02-06 09:52] VITALS: PULSE 62
[2022-02-06] MEDS ORDERED: Sodium Chloride 0.9% 1,000 ML IV ONE (10:18)
[2022-02-06 10:28] LABS: AMPHETAMINES,URINE NEGATIVE (NEGATIVE); BARBITURATES,URINE NEGATIVE (NEGATIVE); BENZODIAZEPINE,URINE NEGATIVE (NEGATIVE); MDMA (ECSTASY), URINE NEGATIVE (NEGATIVE); METHADONE,URINE NEGATIVE (NEGATIVE); METHAMPHETAMINES,URINE NEGATIVE (NEGATIVE); OPIATES,URINE NEGATIVE (NEGATIVE); OXYCODONE,URINE NEGATIVE (NEGATIVE); PHENCYCLIDINE,URINE NEGATIVE (NEGATIVE); TCA,URINE NEGATIVE (NEGATIVE)
== END 2022-02-06 11:40 | disposition home or self-care (01) ==
LOC: DL.ED 09:39
DX: F12.188 Cannabis abuse with other cannabis-induced disorder (principal); E10.65 Type 1 diabetes mellitus with hyperglycemia; I10 Essential (primary) hypertension; Z91.14 Patient's other noncompliance with medication regimen; Z79.899 Other long term (current) drug therapy; Z79.4 Long term (current) use of insulin
CPT/HCPCS: 36415; 80305; 81001; 82009; 82947; 96374; 99284; J2765; J7030

== ENCOUNTER 2022-05-25 13:23 | Emergency (ER) | payer MEDICAID ==
[2022-05-25 13:47] VITALS: BP 147/96; PULSE 100
[2022-05-25] MEDS ORDERED: Sodium Chloride 0.9% 10 ML Syringe FLUSH PRN (13:49)
[2022-05-25] MEDS ORDERED: Sodium Chloride 0.9% 1,000 ML IV ONE ×2 (13:50→14:28)
[2022-05-25 14:24] LABS: ANION GAP 11.5 mEq/L (7-13); CHLORIDE,CL 95 mmol/L (98-107); SODIUM,NA 134 mmol/L (136-145)
[2022-05-25 14:25] LABS: ESTIMATED GFR 59 mL/min (>=60)
== END 2022-05-25 15:18 | disposition home or self-care (01) ==
LOC: DL.ED 13:23
DX: E86.0 Dehydration (principal); I10 Essential (primary) hypertension; E11.9 Type 2 diabetes mellitus without complications; Z79.899 Other long term (current) drug therapy; Z79.4 Long term (current) use of insulin
CPT/HCPCS: 36415; 80053; 83735; 85025; 86140; 96360; 99283; J7030; J3490

== ENCOUNTER 2022-07-20 00:55 | Emergency (ER) | payer MEDICAID ==
[2022-07-20 01:10] VITALS: BP 146/103; PULSE 90
[2022-07-20 01:40] LABS: BASOPHILS PERCENT AUTO 0.4 % (0.0-1.0); EOSINOPHILS PERCENT AUTO 0.7 % (1.0-3.0); HEMATOCRIT 34.5 % (40.0-54.0); HEMOGLOBIN 12.3 g/dL (14.0-18.0); LYMPHOCYTES PERCENT AUTO 13.9 % (20.5-50.1); MEAN CORPUSCULAR HEMOGLOBIN 31.4 pg (27.0-34.0); MEAN CORPUSCULAR HGB CONC 35.7 g/dL (33.0-35.0); MONOCYTES PERCENT AUTO 5.9 % (2-8); NEUTROPHILS PERCENT AUTO 79.1 % (42.2-75.2); PLATELET COUNT,PLT 378 10^3/uL (150-450); RED BLOOD CELL COUNT 3.92 10^6/uL (4.6-6.2); WHITE BLOOD CELL COUNT,WBC 9.9 10^3/uL (5.0-10.0)
[2022-07-20 01:42] LABS: INR 0.8 (0.9-1.2); PROTHROMBIN TIME 8.6 SEC (9.0-12.0); PTT,PARTIAL THROMBOPLSTIN TIME 25.9 SEC (22.0-34.0)
[2022-07-20 01:47] LABS: ALANINE AMINOTRANSFERASE,ALT 18 U/L (16-63); ALBUMIN 2.4 g/dL (3.4-5.0); ALKALINE PHOSPHATASE 61 U/L (46-116); AMYLASE 29 U/L (25-115); ANION GAP 9.2 mEq/L (7-13); ASPARTATE AMNIOTRANSFERASE,AST 16 U/L (15-37); BILIRUBIN TOTAL 0.4 mg/dL (0.2-1.0); BLOOD UREA NITROGEN,BUN 9 mg/dL (7-18); BUN/CREATININE RATIO 9.6 (No establ ref range); CALCIUM 8.7 mg/dL (8.5-10.1); CARBON DIOXIDE,CO2 28 mmol/L (21-32); CHLORIDE,CL 102 mmol/L (98-107); CREATININE 0.94 mg/dL (0.70-1.30); EST CRCL DRUG DOSING (CG) 108.83 mL/min; GLUCOSE RANDOM 172 mg/dL (70-99); LIPASE 46 U/L (73-393); MAGNESIUM 1.6 mg/dL (1.8-2.4); POTASSIUM,K 4.2 mmol/L (3.5-5.1); PROTEIN TOTAL,TP 5.6 g/dL (6.4-8.2); SODIUM,NA 135 mmol/L (136-145)
[2022-07-20 01:50] LABS: A/G RATIO 0.75; C-REACTIVE PROTEIN < 0.2 mg/dL (0.0-0.9); ESTIMATED GFR 106 mL/min (>=60)
[2022-07-20 01:53] LABS: LACTIC ACID 0.7 mmol/L (0.4-2.0)
[2022-07-20 01:59] LABS: APPEARANCE,URINE CLEAR (CLEAR); BILIRUBIN,URINE NEGATIVE (NEGATIVE); COLOR,URINE YELLOW (YELLOW); GLUCOSE,URINE 100 (NEGATIVE); KETONES,URINE NEGATIVE (NEGATIVE); LEUKOCYTE ESTERASE,URINE NEGATIVE (NEGATIVE); NITRITE,URINE NEGATIVE (NEGATIVE); OCCULT BLOOD,URINE SMALL (NEGATIVE); PROTEIN,URINE >=300 (NEGATIVE); UROBILINOGEN,URINE 0.2 mg/dL (0.2-1.0)
[2022-07-20] MEDS ORDERED: Haloperidol Lactate 5 MG/ML SDV IM ONE (02:10)
[2022-07-20 02:20] LABS: AMORPHOUS SEDIMENT,URINE FEW /HPF (NOT SEEN); BACTERIA,URINE MODERATE /HPF (0-FEW/HPF); EPITHELIAL CELLS,URINE NOT SEEN /HPF (NOT SEEN); MUCUS,URINE FEW /LPF (NOT SEEN); WBC,URINE 0-5 /HPF (0-5/HPF)
== END 2022-07-20 02:23 ==
LOC: DL.ED 00:55
DX: R10.84 Generalized abdominal pain (principal); I10 Essential (primary) hypertension; K21.9 Gastro-esophageal reflux disease without esophagitis; E11.9 Type 2 diabetes mellitus without complications; Z79.4 Long term (current) use of insulin; Z79.899 Other long term (current) drug therapy
CPT/HCPCS: 36415; 80053; 81001; 82150; 83605; 83690; 83735; 84145; 85025; 85610; 85730; 86140; 96372; 99283; 99284; J1630

== ENCOUNTER 2022-12-16 15:24 | Emergency (ER) | payer MEDICAID ==
[2022-12-16] MEDS ORDERED: Take Home: Clindamycin HCl 150 MG, 12 Cap Pack PO ONE (15:53)
[2022-12-16] MEDS ORDERED: Take Home: Acetaminophen/HYDROcodone 325-5 MG, 5 Tab Pack PO ONE (15:53)
[2022-12-16 16:00] VITALS: BP 145/88; PULSE 95
== END 2022-12-16 16:02 | disposition home or self-care (01) ==
LOC: DL.ED 15:24
DX: K04.7 Periapical abscess without sinus (principal); I10 Essential (primary) hypertension; K21.9 Gastro-esophageal reflux disease without esophagitis; E11.9 Type 2 diabetes mellitus without complications; Z79.4 Long term (current) use of insulin; Z79.899 Other long term (current) drug therapy
CPT/HCPCS: 99282; 99283; A9270-GY

== ENCOUNTER 2023-02-11 10:03 | Inpatient (IN) | payer MEDICAID ==
[2023-02-11] MEDS ORDERED: Sodium Chloride 0.9% 10 ML Syringe FLUSH PRN (10:14)
[2023-02-11] MEDS ORDERED: LORazepam 2 MG/ML SDV IVPUSH ONE ×4 (10:16→19:34)
[2023-02-11] MEDS ORDERED: Sodium Chloride 0.9% 1,000 ML IV ONE ×3 (10:16→11:03)
[2023-02-11] MEDS ORDERED: 50% Dextrose in Water 50 ML Syringe IVPUSH PRN ×2 (10:17→22:50)
[2023-02-11 10:26] LABS: BASOPHILS PERCENT AUTO 0.5 % (0.0-1.0); HEMATOCRIT 40.6 % (40.0-54.0); HEMOGLOBIN 13.7 g/dL (14.0-18.0); LYMPHOCYTES PERCENT AUTO 4.9 % (20.5-50.1); MEAN CORPUSCULAR HEMOGLOBIN 30.1 pg (27.0-34.0); MEAN CORPUSCULAR HGB CONC 33.7 g/dL (33.0-35.0); MEAN CORPUSCULAR VOLUME 89.2 fL (80-100); MONOCYTES PERCENT AUTO 0.9 % (2-8); NEUTROPHILS PERCENT AUTO 93.7 % (42.2-75.2); PLATELET COUNT,PLT 489 10^3/uL (150-450); RED BLOOD CELL COUNT 4.55 10^6/uL (4.6-6.2); WHITE BLOOD CELL COUNT,WBC 15.3 10^3/uL (5.0-10.0)
[2023-02-11] MEDS: Ondansetron 4 MG/2 ML SDV IV ONE (10:31)
[2023-02-11 10:43] LABS: LACTIC ACID 1.8 mmol/L (0.4-2.0)
[2023-02-11 10:46] LABS: ALANINE AMINOTRANSFERASE,ALT 42 U/L (16-63); ALKALINE PHOSPHATASE 105 U/L (46-116); ANION GAP 26.3 mEq/L (7-13); ASPARTATE AMNIOTRANSFERASE,AST 30 U/L (15-37); BILIRUBIN TOTAL 0.5 mg/dL (0.2-1.0); BLOOD UREA NITROGEN,BUN 39 mg/dL (7-18); BUN/CREATININE RATIO 12.1 (No establ ref range); CALCIUM 9.5 mg/dL (8.5-10.1); CARBON DIOXIDE,CO2 18 mmol/L (21-32); CHLORIDE,CL 92 mmol/L (98-107); CREATININE 3.23 mg/dL (0.70-1.30); EST CRCL DRUG DOSING (CG) 32.02 mL/min; LIPASE 21 U/L (16-77); POTASSIUM,K 5.3 mmol/L (3.5-5.1); PROTEIN TOTAL,TP 7.3 g/dL (6.4-8.2); SODIUM,NA 131 mmol/L (136-145)
[2023-02-11 10:48] LABS: C-REACTIVE PROTEIN < 0.50 ng/dL (<=0.50); ESTIMATED GFR 24 mL/min (>=60); ETHANOL BLOOD MEDICAL < 3 mg/dL (0); GLUCOSE RANDOM 666 mg/dL (70-99)
[2023-02-11 10:49] LABS: KETONES,BLOOD MODERATE-40 mg/dL
[2023-02-11] MEDS ORDERED: Lidocaine 2% Viscous Solution 15 ML UD PO ONE (11:20)
[2023-02-11] MEDS ORDERED: Famotidine 20 MG/2 ML SDV IVPUSH ONE (11:20)
[2023-02-11] MEDS ORDERED: Aluminum Hydroxide/Magnesium Hydroxide/Simethicone Susp 30 ML Cup PO ONE (11:21)
[2023-02-11 11:34] LABS: APPEARANCE,URINE CLEAR (CLEAR); BILIRUBIN,URINE NEGATIVE (NEGATIVE); COLOR,URINE YELLOW (YELLOW); GLUCOSE,URINE >=1000 (NEGATIVE); KETONES,URINE 80 (NEGATIVE); LEUKOCYTE ESTERASE,URINE NEGATIVE (NEGATIVE); NITRITE,URINE NEGATIVE (NEGATIVE); OCCULT BLOOD,URINE MODERATE (NEGATIVE); PH,URINE 5.5 (5.0-9.0); PROTEIN,URINE >=300 (NEGATIVE); UROBILINOGEN,URINE 0.2 mg/dL (0.2-1.0)
[2023-02-11 11:39] LABS: AMPHETAMINES,URINE NEGATIVE (NEGATIVE); BARBITURATES,URINE NEGATIVE (NEGATIVE); BENZODIAZEPINE,URINE NEGATIVE (NEGATIVE); MDMA (ECSTASY), URINE NEGATIVE (NEGATIVE); METHADONE,URINE NEGATIVE (NEGATIVE); METHAMPHETAMINES,URINE NEGATIVE (NEGATIVE); OPIATES,URINE NEGATIVE (NEGATIVE); OXYCODONE,URINE NEGATIVE (NEGATIVE); PHENCYCLIDINE,URINE NEGATIVE (NEGATIVE); TCA,URINE NEGATIVE (NEGATIVE)
[2023-02-11 11:41] LABS: AMORPHOUS SEDIMENT,URINE FEW /HPF (NOT SEEN); BACTERIA,URINE MODERATE /HPF (0-FEW/HPF); EPITHELIAL CELLS,URINE FEW /HPF (NOT SEEN); MUCUS,URINE FEW /LPF (NOT SEEN); RBC,URINE 0-5 /HPF (0-5); WBC,URINE 0-5 /HPF (0-5/HPF)
[2023-02-11 11:45] LABS: O2 DELIVERY DEVICE ROOM AIR
[2023-02-11 11:46] LABS: BASE EXCESS ARTERIAL -8 mmol/L ((-2)-(+3)); BICARBONATE,ARTERIAL 16.5 mmol/L (22-26); O2 SATURATION ARTERIAL 94 % (95-100); PCO2 ARTERIAL 31 mmHg (35-45); PH,ARTERIAL 7.34 (7.35-7.45); PO2 ARTERIAL 73 mmHg (70-100)
[2023-02-11 11:47] LABS: ALLEN TEST positive
[2023-02-11] MEDS ORDERED: Morphine 4 MG/ML Syringe IVPUSH ONE ×2 (12:02→13:08)
[2023-02-11 13:56] LABS: ANION GAP 18.7 mEq/L (7-13); CALCIUM 8.8 mg/dL (8.5-10.1); CREATININE 2.62 mg/dL (0.70-1.30); EST CRCL DRUG DOSING (CG) 39.47 mL/min; POTASSIUM,K 4.7 mmol/L (3.5-5.1)
[2023-02-11] MEDS ORDERED: Sodium Chloride 0.9% 1,000 ML IV SCH ×2 (15:45→20:00)
[2023-02-11 18:57] LABS: O2 DELIVERY DEVICE ROOM AIR
[2023-02-11 18:58] LABS: BASOPHILS PERCENT AUTO 0.5 % (0.0-1.0); HEMATOCRIT 39.8 % (40.0-54.0); HEMOGLOBIN 13.8 g/dL (14.0-18.0); LYMPHOCYTES PERCENT AUTO 8.5 % (20.5-50.1); MEAN CORPUSCULAR HEMOGLOBIN 30.1 pg (27.0-34.0); MEAN CORPUSCULAR HGB CONC 34.7 g/dL (33.0-35.0); MEAN CORPUSCULAR VOLUME 86.9 fL (80-100); MONOCYTES PERCENT AUTO 7.9 % (2-8); NEUTROPHILS PERCENT AUTO 83.1 % (42.2-75.2); PLATELET COUNT,PLT 439 10^3/uL (150-450); RED BLOOD CELL COUNT 4.58 10^6/uL (4.6-6.2); WHITE BLOOD CELL COUNT,WBC 13.5 10^3/uL (5.0-10.0)
[2023-02-11 19:04] LABS: PH,VENOUS 7.42 pH (7.32-7.43)
[2023-02-11 19:05] LABS: BASE EXCESS VENOUS 3 mmol/L ((-2)-(+3)); BICARBONATE,VENOUS 28 mmol/L (22-29); O2 SATURATION VENOUS 69 % (60-80); PCO2 VENOUS 43 mmHg (41-51); PO2 VENOUS 35 mmHg (35-42)
[2023-02-11 19:12] LABS: ANION GAP 14.6 mEq/L (7-13); CALCIUM 8.8 mg/dL (8.5-10.1); CREATININE 2.49 mg/dL (0.70-1.30); EST CRCL DRUG DOSING (CG) 41.53 mL/min; POTASSIUM,K 4.6 mmol/L (3.5-5.1)
[2023-02-11] MEDS ORDERED: Glucagon,Human Recombinant 1 MG Vial IM PRN (22:50)
[2023-02-11] MEDS ORDERED: Insulin Glarg,Human.Rec.Analog 100 Unit/ML 10 ML Vial SUBCUT ONE (22:50)
[2023-02-12] MEDS ORDERED: Lactated Ringers 1,000 ML IV SCH (01:45)
[2023-02-12] MEDS ORDERED: Glucagon,Human Recombinant 1 MG Vial IM PRN (01:48)
[2023-02-12] MEDS ORDERED: 50% Dextrose in Water 50 ML Syringe IVPUSH PRN (01:48)
[2023-02-12] MEDS: LORazepam 2 MG/ML SDV IVPUSH PRN ×3 (02:40→12:53)
[2023-02-12] MEDS ORDERED: LORazepam 2 MG/ML SDV IVPUSH ONE (03:07)
[2023-02-12] MEDS ORDERED: LORazepam 2 MG/ML SDV ONE (03:15)
[2023-02-12] MEDS: Ondansetron 4 MG/2 ML SDV IV ONE (03:20)
[2023-02-12] MEDS ORDERED: Ondansetron 4 MG/2 ML SDV ONE (03:20)
[2023-02-12] MEDS ORDERED: Insulin Glarg,Human.Rec.Analog 100 Unit/ML 10 ML Vial SUBCUT ONE (08:00)
[2023-02-12] MEDS ORDERED: Sodium Chloride 0.9% 1,000 ML IV SCH (08:45)
[2023-02-12] MEDS ORDERED: cloNIDine 0.1 MG Tab PO SCH (09:00)
[2023-02-12] MEDS ORDERED: buPROPion 150 MG Tab.ER PO SCH (09:00)
[2023-02-12] MEDS ORDERED: Lisinopril 5 MG Tab PO SCH (09:00)
[2023-02-12] MEDS ORDERED: Ondansetron 4 MG/2 ML SDV IVPUSH PRN (09:07)
[2023-02-12 09:33] LABS: ANION GAP 15.5 mEq/L (7-13); CALCIUM 8.3 mg/dL (8.5-10.1); CREATININE 2.09 mg/dL (0.70-1.30); EST CRCL DRUG DOSING (CG) 49.48 mL/min; POTASSIUM,K 4.5 mmol/L (3.5-5.1)
[2023-02-12 13:37] VITALS: BP 157/89; PULSE 91
[2023-02-12 15:54] LABS: ANION GAP 13.3 mEq/L (7-13); CALCIUM 8.1 mg/dL (8.5-10.1); CREATININE 1.78 mg/dL (0.70-1.30); EST CRCL DRUG DOSING (CG) 58.1 mL/min; POTASSIUM,K 4.3 mmol/L (3.5-5.1)
== END 2023-02-12 17:20 | disposition home or self-care (01) | DRG 682 ==
LOC: DL.ED 10:03 → DL.MS 02-12 01:26
PROVIDERS: ADMIT Internal Medicine; ATTEND Internal Medicine
DX: N17.9 Acute kidney failure, unspecified (principal); E10.10 Type 1 diabetes mellitus with ketoacidosis without coma; F11.93 Opioid use, unspecified with withdrawal; F12.10 Cannabis abuse, uncomplicated; I10 Essential (primary) hypertension; F19.10 Other psychoactive substance abuse, uncomplicated; G25.81 Restless legs syndrome; G89.29 Other chronic pain; M54.9 Dorsalgia, unspecified; F41.9 Anxiety disorder, unspecified; E10.65 Type 1 diabetes mellitus with hyperglycemia; K21.9 Gastro-esophageal reflux disease without esophagitis; E86.0 Dehydration; Z79.899 Other long term (current) drug therapy; Z91.198 Patient's noncompliance with other medical treatment and regimen for other reason; Z87.442 Personal history of urinary calculi; Z56.0 Unemployment, unspecified
CPT/HCPCS: 36415; 36600; 71045; 74018; 74176; 80048; 80053; 80305-QW; 80307; 81001; 82009; 82803; 82947; 83605; 83690; 84145; 84484; 85025; 86140; 87040; 93005; 93010; 96361; 96374; 96375; 96376; 99285; 99285-25; A9270-GY; J1815-GY; J2060; J2270; J2405; J3490; J7030

== ENCOUNTER 2023-02-17 14:22 | Emergency (ER) | payer MEDICAID ==
[2023-02-17] MEDS ORDERED: Sodium Chloride 0.9% 10 ML Syringe FLUSH PRN (14:33)
[2023-02-17] MEDS ORDERED: Ondansetron 4 MG/2 ML SDV IV ONE (14:34)
[2023-02-17] MEDS ORDERED: Sodium Chloride 0.9% 1,000 ML IV ONE ×3 (14:34→16:00)
[2023-02-17] MEDS ORDERED: diphenhydrAMINE 50 MG/ML SDV IVPUSH ONE (14:34)
[2023-02-17] MEDS ORDERED: LORazepam 2 MG/ML SDV IVPUSH ONE ×2 (14:35→16:02)
[2023-02-17] MEDS ORDERED: Haloperidol Lactate 5 MG/ML SDV IM ONE (14:35)
[2023-02-17] MEDS ORDERED: 50% Dextrose in Water 50 ML Syringe IVPUSH PRN (14:36)
[2023-02-17] MEDS ORDERED: Glucagon,Human Recombinant 1 MG Vial IM PRN (14:36)
[2023-02-17 14:45] VITALS: PULSE 128
[2023-02-17 14:57] LABS: O2 DELIVERY DEVICE ROOM AIR
[2023-02-17 14:58] LABS: BASE EXCESS VENOUS -4.7 mmol/l ((-2)-(+3)); BICARBONATE,VENOUS 20 mmol/l (19-25); HEMATOCRIT 38.1 % (40.0-54.0); HEMOGLOBIN 13.2 g/dL (14.0-18.0); MEAN CORPUSCULAR HEMOGLOBIN 29.9 pg (27.0-34.0); MEAN CORPUSCULAR HGB CONC 34.6 g/dL (33.0-35.0); MEAN CORPUSCULAR VOLUME 86.4 fL (80-100); O2 SATURATION VENOUS 97.9 % (60-80); PCO2 VENOUS 35 mmHg (41-51); PH,VENOUS 7.36 (7.31-7.41); PLATELET COUNT,PLT 432 10^3/uL (150-450); PO2 VENOUS 97 mmHg (35-42); RED BLOOD CELL COUNT 4.41 10^6/uL (4.6-6.2); WHITE BLOOD CELL COUNT,WBC 17.9 10^3/uL (5.0-10.0)
[2023-02-17 15:10] LABS: BASOPHILS PERCENT AUTO 0.2 % (0.0-1.0); EOSINOPHILS PERCENT AUTO 0.4 % (1.0-3.0); LYMPHOCYTES PERCENT AUTO 4.8 % (20.5-50.1); MONOCYTES PERCENT AUTO 2.3 % (2-8); NEUTROPHILS PERCENT AUTO 92.3 % (42.2-75.2)
[2023-02-17 15:12] LABS: KETONES,BLOOD NEGATIVE
[2023-02-17 15:18] LABS: BAND PERCENT MAN 2 %; LYMPHOCYTES PERCENT MAN 6 % (20-50); MONOCYTES PERCENT MAN 1 % (2-8); SEG NEUTROPHILS PERCENT MAN 91 % (42-75)
[2023-02-17 15:22] LABS: APPEARANCE,URINE CLEAR (CLEAR); BILIRUBIN,URINE NEGATIVE (NEGATIVE); COLOR,URINE YELLOW (YELLOW); GLUCOSE,URINE 500 (NEGATIVE); KETONES,URINE NEGATIVE (NEGATIVE); LEUKOCYTE ESTERASE,URINE NEGATIVE (NEGATIVE); NITRITE,URINE NEGATIVE (NEGATIVE); OCCULT BLOOD,URINE MODERATE (NEGATIVE); PROTEIN,URINE >=300 (NEGATIVE); UROBILINOGEN,URINE 0.2 mg/dL (0.2-1.0)
[2023-02-17] MEDS ORDERED: Metoclopramide 10 MG/2 ML SDV IVPUSH ONE (15:23)
[2023-02-17] MEDS ORDERED: cloNIDine 0.1 MG Tab PO ONE (15:23)
[2023-02-17 15:25] LABS: AMPHETAMINES,URINE NEGATIVE (NEGATIVE); BARBITURATES,URINE NEGATIVE (NEGATIVE); BENZODIAZEPINE,URINE NEGATIVE (NEGATIVE); MDMA (ECSTASY), URINE NEGATIVE (NEGATIVE); METHADONE,URINE NEGATIVE (NEGATIVE); METHAMPHETAMINES,URINE NEGATIVE (NEGATIVE); OPIATES,URINE NEGATIVE (NEGATIVE); OXYCODONE,URINE NEGATIVE (NEGATIVE); PHENCYCLIDINE,URINE NEGATIVE (NEGATIVE); TCA,URINE NEGATIVE (NEGATIVE)
[2023-02-17 15:25] LABS: LACTIC ACID 1.6 mmol/L (0.4-2.0)
[2023-02-17] MEDS ORDERED: Dicyclomine 20 MG/2 ML SDV IM ONE (15:25)
[2023-02-17 15:28] LABS: ALANINE AMINOTRANSFERASE,ALT 34 U/L (16-63); ALBUMIN 2.6 g/dL (3.4-5.0); ALKALINE PHOSPHATASE 92 U/L (46-116); AMYLASE 35 U/L (25-115); ANION GAP 16.5 mEq/L (7-13); ASPARTATE AMNIOTRANSFERASE,AST 22 U/L (15-37); BILIRUBIN TOTAL 0.5 mg/dL (0.2-1.0); BLOOD UREA NITROGEN,BUN 24 mg/dL (7-18); BUN/CREATININE RATIO 13.6 (No establ ref range); CALCIUM 9.1 mg/dL (8.5-10.1); CARBON DIOXIDE,CO2 21 mmol/L (21-32); CHLORIDE,CL 100 mmol/L (98-107); CREATININE 1.77 mg/dL (0.70-1.30); EST CRCL DRUG DOSING (CG) 58.43 mL/min; LIPASE 66 U/L (16-77); MAGNESIUM 1.7 mg/dL (1.8-2.4); POTASSIUM,K 4.5 mmol/L (3.5-5.1); PROTEIN TOTAL,TP 6.5 g/dL (6.4-8.2); SODIUM,NA 133 mmol/L (136-145)
[2023-02-17 15:30] LABS: A/G RATIO 0.67; C-REACTIVE PROTEIN < 0.50 ng/dL (<=0.50); ESTIMATED GFR 50 mL/min (>=60); ETHANOL BLOOD MEDICAL < 3 mg/dL (0); GLUCOSE RANDOM 573 mg/dL (70-99)
[2023-02-17 15:39] LABS: CORONAVIRUS COVID-19 NAA NEGATIVE (NEGATIVE); INFLUENZA A NAA NEGATIVE (NEGATIVE); INFLUENZA B NAA NEGATIVE (NEGATIVE); RESPIRATORY SYNCYTIAL VIR NAA NEGATIVE (NEGATIVE)
[2023-02-17 15:51] LABS: BACTERIA,URINE MODERATE /HPF (0-FEW/HPF); EPITHELIAL CELLS,URINE FEW /HPF (NOT SEEN); MUCUS,URINE RARE /LPF (NOT SEEN); WBC,URINE NOT SEEN /HPF (0-5/HPF)
[2023-02-17] MEDS ORDERED: Iopamidol 612 MG/ML 100 ML Bottle IVPUSH ONE (16:01)
[2023-02-17 16:12] VITALS: BP 182/86
[2023-02-17] MEDS ORDERED: Take Home: Cyclobenzaprine 10 MG Tab, 4 Tab Pack PO ONE (18:43)
[2023-02-17] MEDS ORDERED: Take Home: hydrOXYzine HCl 25 MG Tab, 4 Tab Pack PO ONE (18:43)
[2023-02-17] MEDS ORDERED: Metoclopramide 10 MG Tab ONE (19:37)
[2023-02-17] MEDS ORDERED: Dicyclomine 10 MG Cap ONE (19:44)
[2023-02-20 13:46] LABS: C.TRACHOMATIS BY TMA Negative (Negative); M GENITALIUM Negative (Negative); M GENITALIUM SOURCE Urine; N.GONORRHOEAE BY TMA Negative (Negative); SOURCE Urine
== END 2023-02-17 19:51 | disposition home or self-care (01) ==
LOC: DL.ED 14:22
DX: E11.65 Type 2 diabetes mellitus with hyperglycemia (principal); F12.188 Cannabis abuse with other cannabis-induced disorder; F19.10 Other psychoactive substance abuse, uncomplicated; F17.210 Nicotine dependence, cigarettes, uncomplicated; I10 Essential (primary) hypertension; K21.9 Gastro-esophageal reflux disease without esophagitis; Z79.84 Long term (current) use of oral hypoglycemic drugs; Z79.4 Long term (current) use of insulin; Z79.899 Other long term (current) drug therapy; Z20.822 Contact with and (suspected) exposure to COVID-19
CPT/HCPCS: 0241U; 36415; 74177; 80053; 80305-QW; 80307; 81001; 82009; 82150; 82803; 82947; 83605; 83690; 83735; 84145; 85025; 86140; 87040; 87491; 87563; 87591; 96361; 96372; 96374; 96375; 96376; 99284; 99285-25; A9270-GY; J0500; J1200; J1630; J1815-GY; J2060; J2405; J2765; J3490; J7030; Q9967

== ENCOUNTER 2023-02-19 06:39 | Emergency (ER) | payer MEDICAID ==
[2023-02-19] MEDS ORDERED: Sodium Chloride 0.9% 10 ML Syringe FLUSH PRN (07:01)
[2023-02-19] MEDS ORDERED: Sodium Chloride 0.9% 1,000 ML IV ONE ×2 (07:02→08:41)
[2023-02-19] MEDS ORDERED: Pantoprazole 40 MG Vial IVPUSH ONE (07:03)
[2023-02-19] MEDS ORDERED: diphenhydrAMINE 50 MG/ML SDV IVPUSH ONE (07:03)
[2023-02-19] MEDS ORDERED: Haloperidol Lactate 5 MG/ML SDV IM ONE (07:03)
[2023-02-19 07:11] LABS: BASOPHILS PERCENT AUTO 0.5 % (0.0-1.0); EOSINOPHILS PERCENT AUTO 2.2 % (1.0-3.0); HEMATOCRIT 35.8 % (40.0-54.0); HEMOGLOBIN 12.5 g/dL (14.0-18.0); MEAN CORPUSCULAR HEMOGLOBIN 30.4 pg (27.0-34.0); MEAN CORPUSCULAR HGB CONC 34.9 g/dL (33.0-35.0); MEAN CORPUSCULAR VOLUME 87.1 fL (80-100); MONOCYTES PERCENT AUTO 5.7 % (2-8); NEUTROPHILS PERCENT AUTO 82.6 % (42.2-75.2); PLATELET COUNT,PLT 425 10^3/uL (150-450); RED BLOOD CELL COUNT 4.11 10^6/uL (4.6-6.2); WHITE BLOOD CELL COUNT,WBC 13.3 10^3/uL (5.0-10.0)
[2023-02-19] MEDS ORDERED: cloNIDine 0.1 MG Tab PO ONE (07:19)
[2023-02-19] MEDS ORDERED: Ketamine 500 mg/10 ML MDV IV ONE ×2 (07:20→09:10)
[2023-02-19 07:31] LABS: ALANINE AMINOTRANSFERASE,ALT 36 U/L (16-63); ALBUMIN 2.3 g/dL (3.4-5.0); ALKALINE PHOSPHATASE 79 U/L (46-116); ANION GAP 13.6 mEq/L (7-13); ASPARTATE AMNIOTRANSFERASE,AST 32 U/L (15-37); BILIRUBIN TOTAL 0.3 mg/dL (0.2-1.0); BLOOD UREA NITROGEN,BUN 21 mg/dL (7-18); BUN/CREATININE RATIO 11.2 (No establ ref range); CALCIUM 8.2 mg/dL (8.5-10.1); CARBON DIOXIDE,CO2 24 mmol/L (21-32); CHLORIDE,CL 103 mmol/L (98-107); CREATININE 1.87 mg/dL (0.70-1.30); EST CRCL DRUG DOSING (CG) 58.79 mL/min; GLUCOSE RANDOM 143 mg/dL (70-99); LIPASE 53 U/L (16-77); POTASSIUM,K 3.6 mmol/L (3.5-5.1); PROTEIN TOTAL,TP 5.8 g/dL (6.4-8.2); SODIUM,NA 137 mmol/L (136-145)
[2023-02-19 07:35] LABS: LACTIC ACID 1.9 mmol/L (0.4-2.0)
[2023-02-19 07:37] LABS: A/G RATIO 0.66; ESTIMATED GFR 47 mL/min (>=60); ETHANOL BLOOD MEDICAL < 3 mg/dL (0)
[2023-02-19 08:30] LABS: APPEARANCE,URINE CLEAR (CLEAR); BILIRUBIN,URINE NEGATIVE (NEGATIVE); COLOR,URINE YELLOW (YELLOW); GLUCOSE,URINE 500 (NEGATIVE); KETONES,URINE NEGATIVE (NEGATIVE); LEUKOCYTE ESTERASE,URINE NEGATIVE (NEGATIVE); NITRITE,URINE NEGATIVE (NEGATIVE); OCCULT BLOOD,URINE MODERATE (NEGATIVE); PROTEIN,URINE >=300 (NEGATIVE); UROBILINOGEN,URINE 0.2 mg/dL (0.2-1.0)
[2023-02-19 08:32] LABS: AMPHETAMINES,URINE NEGATIVE (NEGATIVE); BARBITURATES,URINE NEGATIVE (NEGATIVE); BENZODIAZEPINE,URINE POSITIVE (NEGATIVE); MDMA (ECSTASY), URINE NEGATIVE (NEGATIVE); METHADONE,URINE NEGATIVE (NEGATIVE); METHAMPHETAMINES,URINE NEGATIVE (NEGATIVE); OPIATES,URINE NEGATIVE (NEGATIVE); OXYCODONE,URINE NEGATIVE (NEGATIVE); PHENCYCLIDINE,URINE NEGATIVE (NEGATIVE); TCA,URINE NEGATIVE (NEGATIVE)
[2023-02-19 08:36] LABS: BACTERIA,URINE FEW /HPF (0-FEW/HPF); EPITHELIAL CELLS,URINE OCCASIONAL /HPF (NOT SEEN); FINE GRANULAR CASTS,URINE RARE /LPF (NOT SEEN); MUCUS,URINE OCCASIONAL /LPF (NOT SEEN); WBC,URINE 0-5 /HPF (0-5/HPF)
[2023-02-19] MEDS ORDERED: LORazepam 2 MG/ML SDV IVPUSH ONE (09:16)
[2023-02-19 11:37] VITALS: BP 156/80; PULSE 91
== END 2023-02-19 11:51 | disposition home or self-care (01) ==
LOC: DL.ED 06:39
DX: F12.188 Cannabis abuse with other cannabis-induced disorder (principal); E11.9 Type 2 diabetes mellitus without complications; Z87.891 Personal history of nicotine dependence; Z79.84 Long term (current) use of oral hypoglycemic drugs
CPT/HCPCS: 36415; 80053; 80305-QW; 80307; 81001; 82947; 83605; 83690; 85025; 96361; 96372; 96374; 96375; 96376; 99283; 99284-25; A9270-GY; C9113; J1200; J1630; J2060; J3490; J7030

== ENCOUNTER 2023-02-20 20:33 | Emergency (ER) | payer MEDICAID ==
[2023-02-20 21:29] VITALS: BP 159/119; PULSE 85
[2023-02-20] MEDS ORDERED: Promethazine 25 MG Tab PO ONE (21:30)
[2023-02-20] MEDS ORDERED: Acetaminophen 325 MG Tab PO ONE (22:04)
[2023-02-20] MEDS ORDERED: Ondansetron 4 MG Tab.DIS PO ONE (22:21)
== END 2023-02-20 23:19 | disposition left against medical advice (07) ==
LOC: DL.ED 20:33
DX: R11.10 Vomiting, unspecified (principal); F12.90 Cannabis use, unspecified, uncomplicated; I10 Essential (primary) hypertension; E11.9 Type 2 diabetes mellitus without complications; Z79.4 Long term (current) use of insulin; Z79.84 Long term (current) use of oral hypoglycemic drugs
CPT/HCPCS: 36415; 82947; 84484; 93005; 93010; 99284; A9270-GY

== ENCOUNTER 2023-06-18 09:28 | Inpatient (IN) | payer MEDICAID ==
[2023-06-18] MEDS ORDERED: 50% Dextrose in Water 50 ML Syringe IVPUSH PRN ×3 (09:51→13:25)
[2023-06-18] MEDS ORDERED: Glucagon,Human Recombinant 1 MG Vial IM PRN ×3 (09:51→13:25)
[2023-06-18 10:09] LABS: BASOPHILS PERCENT AUTO 0.7 % (0.0-1.0); EOSINOPHILS PERCENT AUTO 0.2 % (1.0-3.0); HEMATOCRIT 39.6 % (40.0-54.0); HEMOGLOBIN 14.1 g/dL (14.0-18.0); MEAN CORPUSCULAR HEMOGLOBIN 30.8 pg (27.0-34.0); MEAN CORPUSCULAR HGB CONC 35.6 g/dL (33.0-35.0); MEAN CORPUSCULAR VOLUME 86.5 fL (80-100); MONOCYTES PERCENT AUTO 5.6 % (2-8); NEUTROPHILS PERCENT AUTO 82.5 % (42.2-75.2); PLATELET COUNT,PLT 513 10^3/uL (150-450); RED BLOOD CELL COUNT 4.58 10^6/uL (4.6-6.2); WHITE BLOOD CELL COUNT,WBC 8.4 10^3/uL (5.0-10.0)
[2023-06-18 10:15] LABS: O2 DELIVERY DEVICE ROOM AIR
[2023-06-18] MEDS: Cyclobenzaprine 10 MG Tab PO ONE (10:27)
[2023-06-18] MEDS: hydrOXYzine HCl 25 MG Tab PO ONE (10:29)
[2023-06-18] MEDS: cloNIDine 0.1 MG Tab PO ONE (10:30)
[2023-06-18] MEDS: Dicyclomine 20 MG/2 ML SDV IM ONE (10:31)
[2023-06-18] MEDS: Thiamine 200 MG in Sodium Chloride 0.9% 100 ML IV ONE (10:32)
[2023-06-18 10:34] LABS: BASE EXCESS VENOUS -3.8 mmol/l ((-2)-(+3)); BICARBONATE,VENOUS 19 mmol/l (19-25); O2 SATURATION VENOUS 95.9 % (60-80); PCO2 VENOUS 30 mmHg (41-51); PH,VENOUS 7.42 (7.31-7.41); PO2 VENOUS 63 mmHg (35-42)
[2023-06-18 10:34] LABS: INR 0.9 (0.9-1.2); PROTHROMBIN TIME 8.9 SEC (9.0-12.0); PTT,PARTIAL THROMBOPLSTIN TIME 23.9 SEC (22.0-34.0)
[2023-06-18] MEDS: Sodium Chloride 0.9% 1,000 ML IV ONE ×2 (10:34)
[2023-06-18] MEDS: Sodium Chloride 0.9% 10 ML Syringe FLUSH PRN (10:34)
[2023-06-18] MEDS: Ondansetron 4 MG/2 ML SDV IV ONE (10:34)
[2023-06-18 10:37] LABS: ALANINE AMINOTRANSFERASE,ALT 60 U/L (16-63); ALBUMIN 2.7 g/dL (3.4-5.0); ALKALINE PHOSPHATASE 75 U/L (46-116); ANION GAP 17.7 mEq/L (7-13); ASPARTATE AMNIOTRANSFERASE,AST 27 U/L (15-37); BILIRUBIN TOTAL 0.8 mg/dL (0.2-1.0); BLOOD UREA NITROGEN,BUN 70 mg/dL (7-18); BUN/CREATININE RATIO 21.4 (No establ ref range); CALCIUM 8.6 mg/dL (8.5-10.1); CARBON DIOXIDE,CO2 20 mmol/L (21-32); CHLORIDE,CL 87 mmol/L (98-107); CREATININE 3.27 mg/dL (0.70-1.30); EST CRCL DRUG DOSING (CG) 31.63 mL/min; LIPASE 127 U/L (16-77); MAGNESIUM 2.4 mg/dL (1.8-2.4); POTASSIUM,K 4.7 mmol/L (3.5-5.1); PROTEIN TOTAL,TP 6.6 g/dL (6.4-8.2); SODIUM,NA 120 mmol/L (136-145)
[2023-06-18] MEDS: LORazepam 2 MG/ML SDV IVPUSH ONE ×2 (10:42→11:31)
[2023-06-18 10:44] LABS: A/G RATIO 0.69; ESTIMATED GFR 24 mL/min (>=60); ETHANOL BLOOD MEDICAL < 3 mg/dL (0); GLUCOSE RANDOM 714 mg/dL (70-99)
[2023-06-18 10:45] LABS: KETONES,BLOOD NEGATIVE
[2023-06-18 10:48] LABS: LACTIC ACID 1.2 mmol/L (0.4-2.0)
[2023-06-18 11:32] LABS: APPEARANCE,URINE CLEAR (CLEAR); BILIRUBIN,URINE NEGATIVE (NEGATIVE); COLOR,URINE YELLOW (YELLOW); GLUCOSE,URINE 500 (NEGATIVE); KETONES,URINE NEGATIVE (NEGATIVE); LEUKOCYTE ESTERASE,URINE NEGATIVE (NEGATIVE); NITRITE,URINE NEGATIVE (NEGATIVE); OCCULT BLOOD,URINE SMALL (NEGATIVE); PROTEIN,URINE >=300 (NEGATIVE); UROBILINOGEN,URINE 0.2 mg/dL (0.2-1.0)
[2023-06-18 11:34] LABS: AMPHETAMINES,URINE NEGATIVE (NEGATIVE); BARBITURATES,URINE NEGATIVE (NEGATIVE); BENZODIAZEPINE,URINE NEGATIVE (NEGATIVE); MDMA (ECSTASY), URINE NEGATIVE (NEGATIVE); METHADONE,URINE NEGATIVE (NEGATIVE); METHAMPHETAMINES,URINE NEGATIVE (NEGATIVE); OPIATES,URINE NEGATIVE (NEGATIVE); OXYCODONE,URINE NEGATIVE (NEGATIVE); PHENCYCLIDINE,URINE NEGATIVE (NEGATIVE); TCA,URINE NEGATIVE (NEGATIVE)
[2023-06-18 11:41] LABS: EPITHELIAL CELLS,URINE RARE /HPF (NOT SEEN)
[2023-06-18 11:42] LABS: AMORPHOUS SEDIMENT,URINE FEW /HPF (NOT SEEN); BACTERIA,URINE RARE /HPF (0-FEW/HPF); RBC,URINE 0-5 /HPF (0-5); WBC,URINE 0-5 /HPF (0-5/HPF)
[2023-06-18 12:03] LABS: CORONAVIRUS COVID-19 NAA NEGATIVE (NEGATIVE); INFLUENZA A NAA NEGATIVE (NEGATIVE); INFLUENZA B NAA NEGATIVE (NEGATIVE); RESPIRATORY SYNCYTIAL VIR NAA NEGATIVE (NEGATIVE)
[2023-06-18] MEDS: Sodium Chloride 0.9% 1,000 ML IV SCH (13:15)
[2023-06-18 13:44] LABS: HEMOGLOBIN A1C 11.4 % (<5.7)
[2023-06-18] MEDS: LORazepam 2 MG/ML SDV IV PRN (14:01)
[2023-06-18] MEDS: Dextrose 5%-0.45% NaCl 1,000 ML IV SCH (14:01)
[2023-06-18] MEDS: Insulin Glarg,Human.Rec.Analog 100 Unit/ML 10 ML Vial SUBCUT ONE (14:29)
[2023-06-18] MEDS: Insulin Lispro 100 Units/ML 3 ML Vial SUBCUT SCH (15:59)
[2023-06-18] MEDS: Heparin Sodium 5,000 Units/ML Vial SUBCUT SCH (20:40)
[2023-06-19] MEDS: cloNIDine 0.1 MG Tab PO PRN (01:23)
[2023-06-19] MEDS: Pantoprazole 40 MG Vial IVPUSH SCH (03:11)
[2023-06-19 06:20] LABS: BASOPHILS PERCENT AUTO 0.4 % (0.0-1.0); EOSINOPHILS PERCENT AUTO 1.3 % (1.0-3.0); HEMATOCRIT 36.1 % (40.0-54.0); HEMOGLOBIN 12.7 g/dL (14.0-18.0); LYMPHOCYTES PERCENT AUTO 19.1 % (20.5-50.1); MEAN CORPUSCULAR HEMOGLOBIN 30.8 pg (27.0-34.0); MEAN CORPUSCULAR HGB CONC 35.2 g/dL (33.0-35.0); MEAN CORPUSCULAR VOLUME 87.6 fL (80-100); MONOCYTES PERCENT AUTO 6.3 % (2-8); NEUTROPHILS PERCENT AUTO 72.9 % (42.2-75.2); PLATELET COUNT,PLT 412 10^3/uL (150-450); RED BLOOD CELL COUNT 4.12 10^6/uL (4.6-6.2); WHITE BLOOD CELL COUNT,WBC 7.8 10^3/uL (5.0-10.0)
[2023-06-19 06:38] LABS: ALBUMIN 1.9 g/dL (3.4-5.0); ANION GAP 11.2 mEq/L (7-13); BILIRUBIN TOTAL 0.8 mg/dL (0.2-1.0); BUN/CREATININE RATIO 21.4 (No establ ref range); CALCIUM 7.8 mg/dL (8.5-10.1); CREATININE 2.01 mg/dL (0.70-1.30); EST CRCL DRUG DOSING (CG) 51.45 mL/min; POTASSIUM,K 4.2 mmol/L (3.5-5.1)
[2023-06-19 06:39] LABS: A/G RATIO 0.61
[2023-06-19] MEDS: Thiamine 100 MG Tab PO SCH (08:09)
[2023-06-19] MEDS: Multivitamin Tab PO SCH (08:09)
[2023-06-19] MEDS: Insulin Glarg,Human.Rec.Analog 100 Unit/ML 10 ML Vial SUBCUT SCH (08:14)
[2023-06-19] MEDS: Nicotine 21 MG/24 Hr Patch TRDERM SCH (08:19)
[2023-06-19] MEDS: Insulin Lispro 100 Units/ML 3 ML Vial SUBCUT SCH (12:00)
[2023-06-19 12:47] LABS: C.TRACHOMATIS BY TMA Negative (Negative); M GENITALIUM Negative (Negative); M GENITALIUM SOURCE Urine; N.GONORRHOEAE BY TMA Negative (Negative); SOURCE Urine
[2023-06-19] MEDS: Ondansetron 4 MG/2 ML SDV IVPUSH PRN (17:53)
[2023-06-19] MEDS: hydrOXYzine HCl 25 MG Tab PO PRN (18:18)
[2023-06-19] MEDS: Dextrose 5%-0.9% NaCl 1,000 ML IV SCH (21:05)
[2023-06-20] MEDS: GI Cocktail Oral Solution 30 ML PO ONE (01:18)
[2023-06-20] MEDS ORDERED: Ketorolac 30 MG/ML SDV IVPUSH PRN (01:31)
[2023-06-20] MEDS: HYDROmorphone 0.5 MG/0.5 ML Syringe IVPUSH ONE (02:07)
[2023-06-20 02:48] LABS: BASOPHILS PERCENT AUTO 0.5 % (0.0-1.0); EOSINOPHILS PERCENT AUTO 1.8 % (1.0-3.0); HEMOGLOBIN 14.3 g/dL (14.0-18.0); LYMPHOCYTES PERCENT AUTO 20.3 % (20.5-50.1); MEAN CORPUSCULAR HEMOGLOBIN 30.8 pg (27.0-34.0); MEAN CORPUSCULAR HGB CONC 35.8 g/dL (33.0-35.0); MEAN CORPUSCULAR VOLUME 86.2 fL (80-100); MONOCYTES PERCENT AUTO 6.8 % (2-8); NEUTROPHILS PERCENT AUTO 70.6 % (42.2-75.2); PLATELET COUNT,PLT 245 10^3/uL (150-450); RED BLOOD CELL COUNT 4.64 10^6/uL (4.6-6.2)
[2023-06-20 03:06] LABS: ALBUMIN 2.5 g/dL (3.4-5.0); ANION GAP 14.7 mEq/L (7-13); BILIRUBIN TOTAL 0.5 mg/dL (0.2-1.0); BUN/CREATININE RATIO 16.2 (No establ ref range); CALCIUM 8.5 mg/dL (8.5-10.1); CREATININE 1.97 mg/dL (0.70-1.30); EST CRCL DRUG DOSING (CG) 52.5 mL/min; POTASSIUM,K 3.7 mmol/L (3.5-5.1); PROTEIN TOTAL,TP 5.7 g/dL (6.4-8.2)
[2023-06-20 03:07] LABS: A/G RATIO 0.78
[2023-06-20] MEDS: Metoclopramide 10 MG/2 ML SDV IVPUSH SCH (08:02)
[2023-06-20] MEDS: LORazepam 1 MG Tab PO SCH (08:02)
[2023-06-20] MEDS: Potassium Chloride 10 MEQ Tab.ER PO ONE (08:51)
[2023-06-20] MEDS: Insulin Glarg,Human.Rec.Analog 100 Unit/ML 10 ML Vial SUBCUT SCH (12:30)
[2023-06-20] MEDS: Insulin Lispro 100 Units/ML 3 ML Vial SUBCUT SCH (12:32)
[2023-06-20] MEDS: Acetaminophen 325 MG Tab PO PRN (12:41)
[2023-06-20] MEDS: Lisinopril 20 MG Tab PO SCH (14:07)
[2023-06-20 17:09] VITALS: BP 119/71; PULSE 77
== END 2023-06-20 19:15 | disposition left against medical advice (07) | DRG 638 ==
LOC: DL.ED 09:28 → DL.MS 12:16 → OBSVTOIN 06-20 15:23
PROVIDERS: ADMIT Internal Medicine; ATTEND Internal Medicine
DX: E11.10 Type 2 diabetes mellitus with ketoacidosis without coma (principal); F11.23 Opioid dependence with withdrawal; N17.9 Acute kidney failure, unspecified; H54.7 Unspecified visual loss; K21.9 Gastro-esophageal reflux disease without esophagitis; M54.9 Dorsalgia, unspecified; G89.29 Other chronic pain; F41.9 Anxiety disorder, unspecified; F17.210 Nicotine dependence, cigarettes, uncomplicated; E86.0 Dehydration; F15.10 Other stimulant abuse, uncomplicated; N18.30 Chronic kidney disease, stage 3 unspecified; I12.9 Hypertensive chronic kidney disease with stage 1 through stage 4 chronic kidney disease, or unspecified chronic kidney disease; Z79.4 Long term (current) use of insulin; Z79.84 Long term (current) use of oral hypoglycemic drugs; Z79.899 Other long term (current) drug therapy; Z87.442 Personal history of urinary calculi
CPT/HCPCS: 0241U; 36415; 71045; 80053; 80305-QW; 80307; 81001; 82009; 82150; 82803; 82947; 83036; 83605; 83690; 83735; 84145; 84484; 85025; 85610; 85730; 87040; 87491; 87563; 87591; 93005; 93010; 96361; 96365; 96372; 96375; 96376; 99222; 99232; 99238; 99284; 99285-25; A9270-GY; C9113; J0500; J1170; J1644; J1815-GY; J2060; J2405; J2765; J3411; J3490; J7030; J7042

== ENCOUNTER 2023-07-24 13:20 | Emergency (ER) | payer MEDICAID ==
[2023-07-24] MEDS ORDERED: Iopamidol 612 MG/ML 100 ML Bottle IVPUSH ONE (13:55)
[2023-07-24 13:59] LABS: HEMOGLOBIN 13.5 g/dL (14.0-18.0); MEAN CORPUSCULAR HEMOGLOBIN 30.8 pg (27.0-34.0); MEAN CORPUSCULAR HGB CONC 34.6 g/dL (33.0-35.0); PLATELET COUNT,PLT 522 10^3/uL (150-450); RED BLOOD CELL COUNT 4.38 10^6/uL (4.6-6.2); WHITE BLOOD CELL COUNT,WBC 24.5 10^3/uL (5.0-10.0)
[2023-07-24] MEDS: LORazepam 2 MG/ML SDV IVPUSH ONE (14:02)
[2023-07-24] MEDS: Sodium Chloride 0.9% 2,000 ML IV ONE (14:02)
[2023-07-24] MEDS: Famotidine 20 MG/2 ML SDV IVPUSH ONE (14:04)
[2023-07-24 14:13] LABS: BASE EXCESS ARTERIAL -8 mmol/L ((-2)-(+3)); BICARBONATE,ARTERIAL 14.1 mmol/L (22-26); O2 DELIVERY DEVICE ROOM AIR; O2 SATURATION ARTERIAL 97 % (95-100); PCO2 ARTERIAL 21 mmHg (35-45); PH,ARTERIAL 7.45 (7.35-7.45); PO2 ARTERIAL 89 mmHg (70-100)
[2023-07-24 14:15] LABS: ALLEN TEST y
[2023-07-24 14:19] LABS: LYMPHOCYTES PERCENT MAN 6 % (20-50); SEG NEUTROPHILS PERCENT MAN 90 % (42-75)
[2023-07-24 14:20] LABS: MONOCYTES PERCENT MAN 4 % (2-8)
[2023-07-24 14:24] LABS: ALANINE AMINOTRANSFERASE,ALT 99 U/L (16-63); ALBUMIN 2.4 g/dL (3.4-5.0); ALKALINE PHOSPHATASE 85 U/L (46-116); ASPARTATE AMNIOTRANSFERASE,AST 192 U/L (15-37); BLOOD UREA NITROGEN,BUN 105 mg/dL (7-18); BUN/CREATININE RATIO 13.3 (No establ ref range); CALCIUM 9.3 mg/dL (8.5-10.1); CARBON DIOXIDE,CO2 12 mmol/L (21-32); CHLORIDE,CL 95 mmol/L (98-107); EST CRCL DRUG DOSING (CG) 12.16 mL/min; LIPASE 16 U/L (16-77); PROTEIN TOTAL,TP 6.4 g/dL (6.4-8.2); SODIUM,NA 133 mmol/L (136-145)
[2023-07-24 14:28] LABS: CREATININE 7.89 mg/dL (0.70-1.30); ESTIMATED GFR 8 mL/min (>=60); GLUCOSE RANDOM 628 mg/dL (70-99); LACTIC ACID 3.1 mmol/L (0.4-2.0)
[2023-07-24 14:29] LABS: CREATINE KINASE,CK > 7000 U/L (39-308); ETHANOL BLOOD MEDICAL < 3 mg/dL (0)
[2023-07-24] MEDS: cefTRIAXone 1 GM Vial IVPUSH ONE (14:34)
[2023-07-24] MEDS ORDERED: 50% Dextrose in Water 50 ML Syringe IVPUSH PRN (14:48)
[2023-07-24] MEDS ORDERED: Glucagon,Human Recombinant 1 MG Vial IM PRN (14:48)
[2023-07-24] MEDS: Calcium Chloride 10% 1 GM/10 ML Syringe IVPUSH ONE (15:08)
[2023-07-24] MEDS: Aspirin 81 MG Tab.Chew PO ONE (15:10)
[2023-07-24] MEDS: Sodium Bicarbonate 8.4% 50 MEQ/50 ML Syringe IVPUSH ONE (15:18)
[2023-07-24 15:23] LABS: INR 0.9 (0.9-1.2); PROTHROMBIN TIME 9.6 SEC (9.0-12.0); PTT,PARTIAL THROMBOPLSTIN TIME 25.7 SEC (22.0-34.0)
[2023-07-24 16:59] VITALS: BP 140/95; PULSE 92
== END 2023-07-24 17:35 ==
LOC: DL.ED 13:20
DX: E10.65 Type 1 diabetes mellitus with hyperglycemia (principal); E10.10 Type 1 diabetes mellitus with ketoacidosis without coma; E86.0 Dehydration; I16.1 Hypertensive emergency; M62.82 Rhabdomyolysis; R79.89 Other specified abnormal findings of blood chemistry; N17.9 Acute kidney failure, unspecified; E87.5 Hyperkalemia; F15.10 Other stimulant abuse, uncomplicated; I10 Essential (primary) hypertension; F17.210 Nicotine dependence, cigarettes, uncomplicated; Z79.899 Other long term (current) drug therapy; Z79.84 Long term (current) use of oral hypoglycemic drugs
CPT/HCPCS: 36415; 36600; 71045; 74176; 80053; 80307; 82550; 82803; 82947; 83605; 83690; 84484; 85025; 85610; 85730; 87040; 93005; 96361; 96374; 96375; 99285; A9270; J0696; J1815; J2060; J3490; J7030

== ENCOUNTER 2023-08-02 16:34 | Emergency (ER) | payer MEDICAID ==
[~2023-08-02 16:34] MED LIST changes: -Haloperidol Lactate 5 MG/ML SDV IVPUSH ONE; -Haloperidol Lactate 5 MG/ML SDV ONE; +Iopamidol 612 MG/ML 100 ML Bottle IVPUSH ONE; -Promethazine 25 MG/ML SDV IM ONE; -Sodium Chloride 0.9% 1,000 ML IV ONE
[2023-08-02] MEDS: Famotidine 20 MG/2 ML SDV IVPUSH ONE (16:38)
[2023-08-02] MEDS: Sodium Chloride 0.9% 1,000 ML IV ONE ×2 (16:38→20:18)
[2023-08-02] MEDS: Haloperidol Lactate 5 MG/ML SDV IVPUSH ONE (16:57)
[2023-08-02 18:00] VITALS: BP 179/96; PULSE 97
[2023-08-02 18:01] LABS: HEMOGLOBIN 10.4 g/dL (14.0-18.0); MEAN CORPUSCULAR HGB CONC 33.5 g/dL (33.0-35.0); MEAN CORPUSCULAR VOLUME 92.5 fL (80-100); PLATELET COUNT,PLT 386 10^3/uL (150-450); RED BLOOD CELL COUNT 3.35 10^6/uL (4.6-6.2); WHITE BLOOD CELL COUNT,WBC 13.9 10^3/uL (5.0-10.0)
[2023-08-02 18:06] LABS: BASOPHILS PERCENT AUTO 0.7 % (0.0-1.0); EOSINOPHILS PERCENT AUTO 0.3 % (1.0-3.0); LYMPHOCYTES PERCENT AUTO 6.7 % (20.5-50.1); MONOCYTES PERCENT AUTO 3.5 % (2-8); NEUTROPHILS PERCENT AUTO 88.8 % (42.2-75.2)
[2023-08-02 18:17] LABS: INR 0.8 (0.9-1.2); PROTHROMBIN TIME 8.5 SEC (9.0-12.0)
[2023-08-02 18:26] LABS: LACTIC ACID 1.2 mmol/L (0.4-2.0)
[2023-08-02 18:32] LABS: ALANINE AMINOTRANSFERASE,ALT 57 U/L (16-63); ALKALINE PHOSPHATASE 53 U/L (46-116); ANION GAP 17.4 mEq/L (7-13); ASPARTATE AMNIOTRANSFERASE,AST 41 U/L (15-37); BILIRUBIN TOTAL 0.3 mg/dL (0.2-1.0); BLOOD UREA NITROGEN,BUN 24 mg/dL (7-18); CALCIUM 8.6 mg/dL (8.5-10.1); CARBON DIOXIDE,CO2 19 mmol/L (21-32); CHLORIDE,CL 112 mmol/L (98-107); CREATININE 1.85 mg/dL (0.70-1.30); EST CRCL DRUG DOSING (CG) 55.35 mL/min; GLUCOSE RANDOM 204 mg/dL (70-99); LIPASE 39 U/L (16-77); MAGNESIUM 1.5 mg/dL (1.8-2.4); POTASSIUM,K 4.4 mmol/L (3.5-5.1); PROTEIN TOTAL,TP 5.5 g/dL (6.4-8.2); SODIUM,NA 144 mmol/L (136-145)
[2023-08-02 18:36] LABS: A/G RATIO 0.57; ESTIMATED GFR 47 mL/min (>=60); ETHANOL BLOOD MEDICAL < 3 mg/dL (0)
[2023-08-02 18:37] LABS: BAND PERCENT MAN 1 %; LYMPHOCYTES PERCENT MAN 5 % (20-50); MONOCYTES PERCENT MAN 3 % (2-8); SEG NEUTROPHILS PERCENT MAN 91 % (42-75)
[2023-08-02] MEDS: Promethazine 25 MG/ML SDV IM ONE (20:15)
[2023-08-02 20:17] LABS: APPEARANCE,URINE CLEAR (CLEAR); BILIRUBIN,URINE NEGATIVE (NEGATIVE); COLOR,URINE YELLOW (YELLOW); GLUCOSE,URINE 500 (NEGATIVE); KETONES,URINE TRACE (NEGATIVE); LEUKOCYTE ESTERASE,URINE NEGATIVE (NEGATIVE); NITRITE,URINE NEGATIVE (NEGATIVE); OCCULT BLOOD,URINE MODERATE (NEGATIVE); PH,URINE 6.5 (5.0-9.0); PROTEIN,URINE >=300 (NEGATIVE); UROBILINOGEN,URINE 0.2 mg/dL (0.2-1.0)
[2023-08-02] MEDS: Magnesium Sulfate/Water 2 GM in Premix Bag 1 BAG IV ONE (20:18)
[2023-08-02] MEDS: GI Cocktail Oral Solution 30 ML PO ONE (20:22)
[2023-08-02 20:27] LABS: BACTERIA,URINE RARE /HPF (0-FEW/HPF); EPITHELIAL CELLS,URINE RARE /HPF (NOT SEEN); HYALINE CASTS,URINE FEW; MUCUS,URINE FEW /LPF (NOT SEEN); WBC,URINE 0-5 /HPF (0-5/HPF)
[2023-08-02] MEDS: Take Home: Ondansetron 4 MG Tab.DIS, 5 Tab Pack PO ONE (23:20)
[2023-08-02] MEDS: cefTRIAXone 1 GM Vial IVPUSH ONE (23:39)
== END 2023-08-02 23:25 | disposition home or self-care (01) ==
LOC: DL.ED 16:34
DX: R10.13 Epigastric pain (principal); I12.9 Hypertensive chronic kidney disease with stage 1 through stage 4 chronic kidney disease, or unspecified chronic kidney disease; N18.32 Chronic kidney disease, stage 3b; E11.22 Type 2 diabetes mellitus with diabetic chronic kidney disease; E86.0 Dehydration; E83.42 Hypomagnesemia; R11.2 Nausea with vomiting, unspecified; Z79.4 Long term (current) use of insulin; Z79.899 Other long term (current) drug therapy
CPT/HCPCS: 36415; 71045; 80053; 80307; 81001; 83605; 83690; 83735; 84484; 85025; 85610; 93005; 96361; 96365; 96372; 96375; 99284; A9270; J1630; J2550; J3475; J3490; J7030; Q0162

== ENCOUNTER 2023-09-06 05:15 | Emergency (ER) | payer MEDICAID ==
[2023-09-06] MEDS: LORazepam 2 MG/ML SDV IVPUSH ONE ×2 (05:33→09:46)
[2023-09-06 07:06] LABS: BASOPHILS PERCENT AUTO 0.2 % (0.0-1.0); EOSINOPHILS PERCENT AUTO 0.1 % (1.0-3.0); HEMATOCRIT 36.9 % (40.0-54.0); HEMOGLOBIN 12.3 g/dL (14.0-18.0); LYMPHOCYTES PERCENT AUTO 2.4 % (20.5-50.1); MEAN CORPUSCULAR HEMOGLOBIN 30.5 pg (27.0-34.0); MEAN CORPUSCULAR HGB CONC 33.3 g/dL (33.0-35.0); MEAN CORPUSCULAR VOLUME 91.6 fL (80-100); MONOCYTES PERCENT AUTO 2.8 % (2-8); NEUTROPHILS PERCENT AUTO 94.5 % (42.2-75.2); PLATELET COUNT,PLT 492 10^3/uL (150-450); RED BLOOD CELL COUNT 4.03 10^6/uL (4.6-6.2); WHITE BLOOD CELL COUNT,WBC 26.3 10^3/uL (5.0-10.0)
[2023-09-06 07:25] LABS: A/G RATIO 0.67; ALANINE AMINOTRANSFERASE,ALT 42 U/L (16-63); ALBUMIN 2.4 g/dL (3.4-5.0); ALKALINE PHOSPHATASE 63 U/L (46-116); ANION GAP 16.9 mEq/L (7-13); ASPARTATE AMNIOTRANSFERASE,AST 63 U/L (15-37); BILIRUBIN TOTAL 0.4 mg/dL (0.2-1.0); BLOOD UREA NITROGEN,BUN 18 mg/dL (7-18); BUN/CREATININE RATIO 7.4 (No establ ref range); CALCIUM 9.4 mg/dL (8.5-10.1); CARBON DIOXIDE,CO2 23 mmol/L (21-32); CHLORIDE,CL 108 mmol/L (98-107); CREATININE 2.43 mg/dL (0.70-1.30); ESTIMATED GFR 34 mL/min (>=60); ETHANOL BLOOD MEDICAL < 3 mg/dL (0); GLUCOSE RANDOM 102 mg/dL (70-99); LIPASE 26 U/L (16-77); POTASSIUM,K 4.9 mmol/L (3.5-5.1); SODIUM,NA 143 mmol/L (136-145)
[2023-09-06] MEDS: Iopamidol 612 MG/ML 100 ML Bottle IVPUSH ONE (07:35)
[2023-09-06] MEDS: Sodium Chloride 0.9% 2,000 ML IV SCH (08:58)
[2023-09-06] MEDS: Ondansetron 4 MG/2 ML SDV IVPUSH ONE (09:45)
[2023-09-06 09:53] VITALS: BP 175/109; PULSE 94
[2023-09-06] MEDS: LORazepam 2 MG/ML SDV ONE (09:58)
[2023-09-06 10:59] LABS: APPEARANCE,URINE CLEAR (CLEAR); BILIRUBIN,URINE NEGATIVE (NEGATIVE); COLOR,URINE YELLOW (YELLOW); GLUCOSE,URINE 500 (NEGATIVE); KETONES,URINE 15 (NEGATIVE); LEUKOCYTE ESTERASE,URINE NEGATIVE (NEGATIVE); NITRITE,URINE NEGATIVE (NEGATIVE); OCCULT BLOOD,URINE MODERATE (NEGATIVE); PH,URINE 7.5 (5.0-9.0); PROTEIN,URINE >=300 (NEGATIVE); UROBILINOGEN,URINE 0.2 mg/dL (0.2-1.0)
[2023-09-06 11:10] LABS: AMPHETAMINES,URINE POSITIVE (NEGATIVE); BARBITURATES,URINE NEGATIVE (NEGATIVE); BENZODIAZEPINE,URINE POSITIVE (NEGATIVE); MDMA (ECSTASY), URINE NEGATIVE (NEGATIVE); METHADONE,URINE NEGATIVE (NEGATIVE); METHAMPHETAMINES,URINE POSITIVE (NEGATIVE); OPIATES,URINE NEGATIVE (NEGATIVE); OXYCODONE,URINE NEGATIVE (NEGATIVE); PHENCYCLIDINE,URINE NEGATIVE (NEGATIVE); TCA,URINE NEGATIVE (NEGATIVE)
[2023-09-06 11:42] LABS: BACTERIA,URINE OCCASIONAL /HPF (0-FEW/HPF); EPITHELIAL CELLS,URINE RARE /HPF (NOT SEEN); MUCUS,URINE FEW /LPF (NOT SEEN); WBC,URINE 0-5 /HPF (0-5/HPF)
== END 2023-09-06 11:11 | disposition home or self-care (01) ==
LOC: DL.ED 05:15
DX: R41.82 Altered mental status, unspecified (principal); F15.129 Other stimulant abuse with intoxication, unspecified; I10 Essential (primary) hypertension; E11.9 Type 2 diabetes mellitus without complications; Z79.4 Long term (current) use of insulin; Z79.84 Long term (current) use of oral hypoglycemic drugs; Z79.51 Long term (current) use of inhaled steroids
CPT/HCPCS: 36415; 70450; 74177; 80053; 80305-QW; 80307; 81001; 82947; 83690; 84484; 85025; 93005; 93010; 96361; 96374; 96375; 96376; 99285; 99285-25; J2060; J2405; J7030; Q9967

== ENCOUNTER 2023-10-25 11:56 | Emergency (ER) | payer MEDICAID ==
[2023-10-25 13:03] VITALS: BP 171/108; PULSE 105
[2023-10-25 13:08] LABS: BASOPHILS PERCENT AUTO 0.4 % (0.0-1.0); EOSINOPHILS PERCENT AUTO 0.8 % (1.0-3.0); HEMATOCRIT 38.7 % (40.0-54.0); HEMOGLOBIN 13.1 g/dL (14.0-18.0); MEAN CORPUSCULAR HEMOGLOBIN 30.5 pg (27.0-34.0); MEAN CORPUSCULAR HGB CONC 33.9 g/dL (33.0-35.0); MONOCYTES PERCENT AUTO 5.1 % (2-8); NEUTROPHILS PERCENT AUTO 78.7 % (42.2-75.2); PLATELET COUNT,PLT 590 10^3/uL (150-450); WHITE BLOOD CELL COUNT,WBC 11.8 10^3/uL (5.0-10.0)
[2023-10-25 13:13] LABS: ALANINE AMINOTRANSFERASE,ALT 18 U/L (16-63); ALKALINE PHOSPHATASE 75 U/L (46-116); ANION GAP 13.4 mEq/L (7-13); ASPARTATE AMNIOTRANSFERASE,AST 17 U/L (15-37); BILIRUBIN TOTAL 0.3 mg/dL (0.2-1.0); BLOOD UREA NITROGEN,BUN 31 mg/dL (7-18); BUN/CREATININE RATIO 12.6 (No establ ref range); CALCIUM 8.8 mg/dL (8.5-10.1); CARBON DIOXIDE,CO2 23 mmol/L (21-32); CHLORIDE,CL 108 mmol/L (98-107); CREATININE 2.46 mg/dL (0.70-1.30); EST CRCL DRUG DOSING (CG) 41.63 mL/min; GLUCOSE RANDOM 87 mg/dL (70-99); LIPASE 64 U/L (16-77); POTASSIUM,K 4.4 mmol/L (3.5-5.1); SODIUM,NA 140 mmol/L (136-145)
[2023-10-25] MEDS: Sodium Chloride 0.9% 1,000 ML IV ONE (13:15)
[2023-10-25] MEDS: Ondansetron 4 MG/2 ML SDV IVPUSH ONE (13:15)
[2023-10-25 13:16] LABS: C-REACTIVE PROTEIN < 0.50 ng/dL (<=0.50); ESTIMATED GFR 33 mL/min (>=60); LACTIC ACID 0.6 mmol/L (0.4-2.0)
== END 2023-10-25 14:16 | disposition home or self-care (01) ==
LOC: DL.ED 11:56
DX: M25.552 Pain in left hip (principal); J32.9 Chronic sinusitis, unspecified; I12.9 Hypertensive chronic kidney disease with stage 1 through stage 4 chronic kidney disease, or unspecified chronic kidney disease; N18.32 Chronic kidney disease, stage 3b; E11.22 Type 2 diabetes mellitus with diabetic chronic kidney disease; Z79.4 Long term (current) use of insulin
CPT/HCPCS: 36415; 80053; 82947; 83605; 83690; 85025; 85651; 86140; 96361; 96374; 99284; 99284-25; J2405; J7030

== ENCOUNTER 2023-11-24 13:10 | Inpatient (IN) | payer MEDICAID ==
[2023-11-24] MEDS: Midazolam 1 MG/ML 2 ML SDV IVPUSH ONE ×2 (13:09→16:03)
[2023-11-24] MEDS: Midazolam 1 MG/ML 2 ML SDV ONE ×2 (13:09→16:03)
[2023-11-24] MEDS: Haloperidol Lactate 5 MG/ML SDV ONE ×2 (13:09→15:57)
[2023-11-24] MEDS ORDERED: Ketorolac 30 MG/ML SDV IVPUSH ONE (13:18)
[2023-11-24 13:27] LABS: BASOPHILS PERCENT AUTO 0.3 % (0.0-1.0); HEMATOCRIT 39.4 % (40.0-54.0); HEMOGLOBIN 13.6 g/dL (14.0-18.0); LYMPHOCYTES PERCENT AUTO 3.2 % (20.5-50.1); MEAN CORPUSCULAR HEMOGLOBIN 30.1 pg (27.0-34.0); MEAN CORPUSCULAR HGB CONC 34.5 g/dL (33.0-35.0); MEAN CORPUSCULAR VOLUME 87.2 fL (80-100); MONOCYTES PERCENT AUTO 3.7 % (2-8); NEUTROPHILS PERCENT AUTO 92.8 % (42.2-75.2); PLATELET COUNT,PLT 560 10^3/uL (150-450); RED BLOOD CELL COUNT 4.52 10^6/uL (4.6-6.2); WHITE BLOOD CELL COUNT,WBC 21.8 10^3/uL (5.0-10.0)
[2023-11-24 13:35] LABS: ALANINE AMINOTRANSFERASE,ALT 53 U/L (16-63); ALBUMIN 2.4 g/dL (3.4-5.0); ALKALINE PHOSPHATASE 87 U/L (46-116); ANION GAP 20.7 mEq/L (7-13); ASPARTATE AMNIOTRANSFERASE,AST 64 U/L (15-37); BILIRUBIN TOTAL 0.6 mg/dL (0.2-1.0); BLOOD UREA NITROGEN,BUN 31 mg/dL (7-18); BUN/CREATININE RATIO 8.7 (No establ ref range); CARBON DIOXIDE,CO2 20 mmol/L (21-32); CHLORIDE,CL 103 mmol/L (98-107); CREATININE 3.57 mg/dL (0.70-1.30); GLUCOSE RANDOM 231 mg/dL (70-99); MAGNESIUM 2.1 mg/dL (1.8-2.4); POTASSIUM,K 4.7 mmol/L (3.5-5.1); PROTEIN TOTAL,TP 6.3 g/dL (6.4-8.2); SODIUM,NA 139 mmol/L (136-145)
[2023-11-24 13:37] LABS: A/G RATIO 0.62; ESTIMATED GFR 21 mL/min (>=60); ETHANOL BLOOD MEDICAL < 3 mg/dL (0)
[2023-11-24 13:37] LABS: APPEARANCE,URINE CLEAR (CLEAR); BILIRUBIN,URINE NEGATIVE (NEGATIVE); COLOR,URINE YELLOW (YELLOW); GLUCOSE,URINE 500 (NEGATIVE); KETONES,URINE 15 (NEGATIVE); LEUKOCYTE ESTERASE,URINE NEGATIVE (NEGATIVE); NITRITE,URINE NEGATIVE (NEGATIVE); OCCULT BLOOD,URINE LARGE (NEGATIVE); PH,URINE 5.5 (5.0-9.0); PROTEIN,URINE >=300 (NEGATIVE); UROBILINOGEN,URINE 0.2 mg/dL (0.2-1.0)
[2023-11-24] MEDS: Sodium Chloride 0.9% 1,000 ML IV ONE ×2 (13:37→13:48)
[2023-11-24] MEDS: Sodium Chloride 0.9% 10 ML Syringe FLUSH PRN (13:38)
[2023-11-24 13:42] LABS: AMPHETAMINES,URINE POSITIVE (NEGATIVE); BARBITURATES,URINE NEGATIVE (NEGATIVE); BENZODIAZEPINE,URINE NEGATIVE (NEGATIVE); MDMA (ECSTASY), URINE NEGATIVE (NEGATIVE); METHADONE,URINE NEGATIVE (NEGATIVE); METHAMPHETAMINES,URINE POSITIVE (NEGATIVE); OPIATES,URINE NEGATIVE (NEGATIVE); OXYCODONE,URINE NEGATIVE (NEGATIVE); PHENCYCLIDINE,URINE NEGATIVE (NEGATIVE); TCA,URINE NEGATIVE (NEGATIVE)
[2023-11-24 13:47] LABS: AMORPHOUS SEDIMENT,URINE MODERATE /HPF (NOT SEEN); BACTERIA,URINE MODERATE /HPF (0-FEW/HPF); EPITHELIAL CELLS,URINE FEW /HPF (NOT SEEN); MUCUS,URINE MODERATE /LPF (NOT SEEN); RBC,URINE 40-50 /HPF (0-5); WBC,URINE 0-5 /HPF (0-5/HPF)
[2023-11-24 14:00] LABS: O2 DELIVERY DEVICE ROOM AIR
[2023-11-24 14:02] LABS: BASE EXCESS VENOUS -5.9 mmol/l ((-2)-(+3)); BICARBONATE,VENOUS 19 mmol/l (19-25); O2 SATURATION VENOUS 95.9 % (60-80); PCO2 VENOUS 36 mmHg (41-51); PH,VENOUS 7.34 (7.31-7.41); PO2 VENOUS 89 mmHg (35-42)
[2023-11-24 15:17] LABS: ANION GAP 19.9 mEq/L (7-13); BLOOD UREA NITROGEN,BUN 31 mg/dL (7-18); CALCIUM 7.9 mg/dL (8.5-10.1); CARBON DIOXIDE,CO2 20 mmol/L (21-32); CHLORIDE,CL 106 mmol/L (98-107); CREATININE 3.14 mg/dL (0.70-1.30); GLUCOSE RANDOM 217 mg/dL (70-99); POTASSIUM,K 4.9 mmol/L (3.5-5.1); SODIUM,NA 141 mmol/L (136-145)
[2023-11-24 15:22] LABS: ESTIMATED GFR 25 mL/min (>=60)
[2023-11-24] MEDS: Haloperidol Lactate 5 MG/ML SDV IVPUSH ONE (16:04)
[2023-11-24] MEDS ORDERED: Ondansetron 4 MG/2 ML SDV IVPUSH PRN (16:52)
[2023-11-24] MEDS ORDERED: Polyethylene Glycol 3350 Powder 17 GM Packet PO PRN (16:52)
[2023-11-24] MEDS ORDERED: Glucagon,Human Recombinant 1 MG Vial IM PRN (17:03)
[2023-11-24] MEDS ORDERED: 50% Dextrose in Water 50 ML Syringe IVPUSH PRN (17:03)
[2023-11-24] MEDS ORDERED: Haloperidol Lactate 5 MG/ML SDV IVPUSH PRN (17:07)
[2023-11-24] MEDS: Insulin Lispro 100 Units/ML 3 ML Vial SUBCUT SCH (17:46)
[2023-11-24] MEDS: Sodium Chloride 0.9% 1,000 ML IV SCH (17:47)
[2023-11-24] MEDS: Acetaminophen 325 MG Tab PO PRN (18:47)
[2023-11-24] MEDS: GI Cocktail Oral Solution 30 ML PO ONE (18:54)
[2023-11-24 19:26] LABS: AMYLASE 29 U/L (25-115); LIPASE 29 U/L (16-77)
[2023-11-24 19:33] LABS: HEMOGLOBIN A1C 10.1 % (<5.7)
[2023-11-25] MEDS: Pantoprazole 40 MG Vial IVPUSH SCH (04:45)
[2023-11-25] MEDS: Pantoprazole 40 MG Vial ONE (04:49)
[2023-11-25 06:18] LABS: BASOPHILS PERCENT AUTO 0.3 % (0.0-1.0); HEMATOCRIT 40.9 % (40.0-54.0); HEMOGLOBIN 13.5 g/dL (14.0-18.0); LYMPHOCYTES PERCENT AUTO 2.6 % (20.5-50.1); MEAN CORPUSCULAR HEMOGLOBIN 29.7 pg (27.0-34.0); MEAN CORPUSCULAR VOLUME 89.9 fL (80-100); MONOCYTES PERCENT AUTO 2.5 % (2-8); NEUTROPHILS PERCENT AUTO 94.6 % (42.2-75.2); PLATELET COUNT,PLT 507 10^3/uL (150-450); RED BLOOD CELL COUNT 4.55 10^6/uL (4.6-6.2); WHITE BLOOD CELL COUNT,WBC 18.3 10^3/uL (5.0-10.0)
[2023-11-25 06:55] LABS: ALBUMIN 2.2 g/dL (3.4-5.0); ANION GAP 22.2 mEq/L (7-13); BILIRUBIN TOTAL 0.7 mg/dL (0.2-1.0); CALCIUM 8.7 mg/dL (8.5-10.1); CREATININE 3.01 mg/dL (0.70-1.30); EST CRCL DRUG DOSING (CG) 34.02 mL/min; MAGNESIUM 2.6 mg/dL (1.8-2.4); POTASSIUM,K 4.2 mmol/L (3.5-5.1)
[2023-11-25 06:57] LABS: A/G RATIO 0.58
[2023-11-25] MEDS: Enoxaparin 30 MG/0.3 ML Syringe SUBCUT SCH (10:23)
[2023-11-25] MEDS: Lisinopril 20 MG Tab PO SCH (16:11)
[2023-11-26] MEDS: LORazepam 2 MG/ML SDV IVPUSH PRN (00:31)
[2023-11-26 07:30] LABS: BASOPHILS PERCENT AUTO 0.4 % (0.0-1.0); HEMATOCRIT 38.5 % (40.0-54.0); HEMOGLOBIN 12.7 g/dL (14.0-18.0); LYMPHOCYTES PERCENT AUTO 6.5 % (20.5-50.1); MONOCYTES PERCENT AUTO 4.4 % (2-8); NEUTROPHILS PERCENT AUTO 88.7 % (42.2-75.2); PLATELET COUNT,PLT 438 10^3/uL (150-450); RED BLOOD CELL COUNT 4.23 10^6/uL (4.6-6.2)
[2023-11-26 07:52] LABS: ALBUMIN 1.8 g/dL (3.4-5.0); ANION GAP 18.2 mEq/L (7-13); BILIRUBIN TOTAL 0.5 mg/dL (0.2-1.0); BUN/CREATININE RATIO 14.6 (No establ ref range); CALCIUM 8.2 mg/dL (8.5-10.1); CREATININE 2.39 mg/dL (0.70-1.30); EST CRCL DRUG DOSING (CG) 42.85 mL/min; MAGNESIUM 2.2 mg/dL (1.8-2.4); POTASSIUM,K 4.2 mmol/L (3.5-5.1); PROTEIN TOTAL,TP 5.4 g/dL (6.4-8.2)
[2023-11-26] MEDS: Docusate Sodium 100 MG Cap PO PRN (07:57)
[2023-11-26 07:58] LABS: A/G RATIO 0.5
[2023-11-26] MEDS: amLODIPine 5 MG Tab PO SCH (09:04)
[2023-11-26] MEDS: Cholecalciferol (Vitamin D3) 25 MCG Tab PO SCH (11:13)
[2023-11-26 11:18] VITALS: BP 187/98; PULSE 69
[2023-11-26] MEDS: Chlorthalidone 25 MG Tab PO SCH (14:08)
[2023-11-26] MEDS ORDERED: QUEtiapine 25 MG Tab PO SCH (21:00)
[2023-11-27] MEDS ORDERED: Multivitamin Tab PO SCH (09:00)
== END 2023-11-26 14:45 | disposition home or self-care (01) | DRG 684 ==
LOC: DL.ED 13:10 → DL.MS 15:28
PROVIDERS: ADMIT Internal Medicine; ATTEND Internal Medicine
DX: N17.9 Acute kidney failure, unspecified (principal); E11.9 Type 2 diabetes mellitus without complications; K21.9 Gastro-esophageal reflux disease without esophagitis; G89.29 Other chronic pain; M54.9 Dorsalgia, unspecified; F15.10 Other stimulant abuse, uncomplicated; H54.7 Unspecified visual loss; F41.9 Anxiety disorder, unspecified; E86.0 Dehydration; F32.A Depression, unspecified; D72.829 Elevated white blood cell count, unspecified; D75.839 Thrombocytosis, unspecified; R11.10 Vomiting, unspecified; I45.81 Long QT syndrome; F12.90 Cannabis use, unspecified, uncomplicated; R80.9 Proteinuria, unspecified; R31.9 Hematuria, unspecified; D63.8 Anemia in other chronic diseases classified elsewhere; Z79.4 Long term (current) use of insulin; Z79.84 Long term (current) use of oral hypoglycemic drugs; Z79.899 Other long term (current) drug therapy; Z87.442 Personal history of urinary calculi
CPT/HCPCS: 36415; 80048; 80053; 80305-QW; 80307; 81001; 82150; 82550; 82803; 82947; 83036; 83690; 83735; 85025; 86140; 96361; 96374; 99223; 99232; 99239; 99284; 99285-25; A9270-GY; J1630; J1650; J1815-GY; J2060; J2250; J2470; J3490; J7030

== ENCOUNTER 2023-12-15 10:26 | Emergency (ER) | payer MEDICAID ==
[2023-12-15 10:36] VITALS: BP 156/82; PULSE 115
[2023-12-15] MEDS: Ondansetron 4 MG/2 ML SDV IVPUSH ONE (11:02)
[2023-12-15] MEDS: GI Cocktail Oral Solution 30 ML PO ONE (11:02)
[2023-12-15] MEDS: Famotidine 20 MG/2 ML SDV IVPUSH ONE (11:05)
[2023-12-15 11:06] LABS: BASOPHILS PERCENT AUTO 0.6 % (0.0-1.0); EOSINOPHILS PERCENT AUTO 0.6 % (1.0-3.0); HEMATOCRIT 38.7 % (40.0-54.0); HEMOGLOBIN 13.2 g/dL (14.0-18.0); LYMPHOCYTES PERCENT AUTO 8.5 % (20.5-50.1); MEAN CORPUSCULAR HEMOGLOBIN 29.9 pg (27.0-34.0); MEAN CORPUSCULAR HGB CONC 34.1 g/dL (33.0-35.0); MEAN CORPUSCULAR VOLUME 87.8 fL (80-100); MONOCYTES PERCENT AUTO 3.5 % (2-8); NEUTROPHILS PERCENT AUTO 86.8 % (42.2-75.2); PLATELET COUNT,PLT 454 10^3/uL (150-450); RED BLOOD CELL COUNT 4.41 10^6/uL (4.6-6.2)
[2023-12-15] MEDS: Sodium Chloride 0.9% 1,000 ML IV ONE ×2 (11:07→11:45)
[2023-12-15 11:12] LABS: APPEARANCE,URINE CLEAR (CLEAR); BILIRUBIN,URINE NEGATIVE (NEGATIVE); COLOR,URINE YELLOW (YELLOW); GLUCOSE,URINE 500 (NEGATIVE); KETONES,URINE NEGATIVE (NEGATIVE); LEUKOCYTE ESTERASE,URINE NEGATIVE (NEGATIVE); NITRITE,URINE NEGATIVE (NEGATIVE); OCCULT BLOOD,URINE MODERATE (NEGATIVE); PROTEIN,URINE >=300 (NEGATIVE); UROBILINOGEN,URINE 0.2 mg/dL (0.2-1.0)
[2023-12-15] MEDS ORDERED: Iopamidol 612 MG/ML 100 ML Bottle IVPUSH ONE (11:13)
[2023-12-15 11:21] LABS: INR 0.8 (0.9-1.2); PROTHROMBIN TIME 8.5 SEC (9.0-12.0)
[2023-12-15 11:25] LABS: AMPHETAMINES,URINE NEGATIVE (NEGATIVE); BARBITURATES,URINE NEGATIVE (NEGATIVE); BENZODIAZEPINE,URINE NEGATIVE (NEGATIVE); MDMA (ECSTASY), URINE NEGATIVE (NEGATIVE); METHADONE,URINE NEGATIVE (NEGATIVE); METHAMPHETAMINES,URINE NEGATIVE (NEGATIVE); OPIATES,URINE NEGATIVE (NEGATIVE); OXYCODONE,URINE NEGATIVE (NEGATIVE); PHENCYCLIDINE,URINE NEGATIVE (NEGATIVE); TCA,URINE NEGATIVE (NEGATIVE)
[2023-12-15 11:28] LABS: ALANINE AMINOTRANSFERASE,ALT 18 U/L (16-63); ALBUMIN 2.1 g/dL (3.4-5.0); ALKALINE PHOSPHATASE 80 U/L (46-116); ANION GAP 16.3 mEq/L (7-13); ASPARTATE AMNIOTRANSFERASE,AST 22 U/L (15-37); BILIRUBIN TOTAL 0.4 mg/dL (0.2-1.0); BLOOD UREA NITROGEN,BUN 38 mg/dL (7-18); BUN/CREATININE RATIO 15.1 (No establ ref range); CALCIUM 9.4 mg/dL (8.5-10.1); CARBON DIOXIDE,CO2 20 mmol/L (21-32); CHLORIDE,CL 109 mmol/L (98-107); CREATININE 2.52 mg/dL (0.70-1.30); EST CRCL DRUG DOSING (CG) 40.64 mL/min; GLUCOSE RANDOM 248 mg/dL (70-99); LIPASE 73 U/L (16-77); POTASSIUM,K 4.3 mmol/L (3.5-5.1); SODIUM,NA 141 mmol/L (136-145)
[2023-12-15 11:31] LABS: A/G RATIO 0.54; ESTIMATED GFR 32 mL/min (>=60)
[2023-12-15 11:32] LABS: ETHANOL BLOOD MEDICAL < 3 mg/dL (0)
[2023-12-15 11:41] LABS: AMORPHOUS SEDIMENT,URINE RARE /HPF (NOT SEEN); BACTERIA,URINE RARE /HPF (0-FEW/HPF); EPITHELIAL CELLS,URINE RARE /HPF (NOT SEEN); MUCUS,URINE RARE /LPF (NOT SEEN); RBC,URINE 0-5 /HPF (0-5); WBC,URINE 0-5 /HPF (0-5/HPF)
[2023-12-15 11:53] LABS: LACTIC ACID 1.1 mmol/L (0.4-2.0)
[2023-12-15] MEDS: Pantoprazole 40 MG Vial IVPUSH ONE (12:09)
[2023-12-15] MEDS: Haloperidol Lactate 5 MG/ML SDV IVPUSH ONE (12:13)
== END 2023-12-15 12:40 | disposition left against medical advice (07) ==
LOC: DL.ED 10:26
DX: K29.20 Alcoholic gastritis without bleeding (principal); F10.10 Alcohol abuse, uncomplicated; E86.0 Dehydration; I12.9 Hypertensive chronic kidney disease with stage 1 through stage 4 chronic kidney disease, or unspecified chronic kidney disease; N18.32 Chronic kidney disease, stage 3b; E11.22 Type 2 diabetes mellitus with diabetic chronic kidney disease; F17.200 Nicotine dependence, unspecified, uncomplicated; Z79.4 Long term (current) use of insulin; Z79.84 Long term (current) use of oral hypoglycemic drugs; Z79.899 Other long term (current) drug therapy
CPT/HCPCS: 36415; 71045; 80053; 80305; 80307; 81001; 82947; 83605; 83690; 83735; 84484; 85025; 85610; 87040; 93005; 93010; 96361; 96374; 96375; 99285; A9270; J1630; J2405; J2470; J3490; J7030

== ENCOUNTER 2024-01-05 21:07 | Emergency (ER) | payer MEDICAID ==
[2024-01-05] MEDS ORDERED: Sodium Chloride 0.9% 10 ML Syringe FLUSH PRN (21:18)
[2024-01-05 21:29] LABS: BASOPHILS PERCENT AUTO 0.2 % (0.0-1.0); EOSINOPHILS PERCENT AUTO 0.1 % (1.0-3.0); HEMATOCRIT 36.1 % (40.0-54.0); HEMOGLOBIN 12.5 g/dL (14.0-18.0); LYMPHOCYTES PERCENT AUTO 3.5 % (20.5-50.1); MEAN CORPUSCULAR HEMOGLOBIN 30.9 pg (27.0-34.0); MEAN CORPUSCULAR HGB CONC 34.6 g/dL (33.0-35.0); MEAN CORPUSCULAR VOLUME 89.4 fL (80-100); MONOCYTES PERCENT AUTO 4.7 % (2-8); NEUTROPHILS PERCENT AUTO 91.5 % (42.2-75.2); PLATELET COUNT,PLT 369 10^3/uL (150-450); RED BLOOD CELL COUNT 4.04 10^6/uL (4.6-6.2); WHITE BLOOD CELL COUNT,WBC 19.7 10^3/uL (5.0-10.0)
[2024-01-05] MEDS: Haloperidol Lactate 5 MG/ML SDV IVPUSH ONE (21:32)
[2024-01-05 21:46] LABS: APPEARANCE,URINE SLIGHTLY CLOUDY (CLEAR); BILIRUBIN,URINE NEGATIVE (NEGATIVE); COLOR,URINE YELLOW (YELLOW); GLUCOSE,URINE 100 (NEGATIVE); KETONES,URINE 15 (NEGATIVE); LEUKOCYTE ESTERASE,URINE NEGATIVE (NEGATIVE); NITRITE,URINE NEGATIVE (NEGATIVE); OCCULT BLOOD,URINE MODERATE (NEGATIVE); PH,URINE 7.5 (5.0-9.0); PROTEIN,URINE >=300 (NEGATIVE); UROBILINOGEN,URINE 0.2 mg/dL (0.2-1.0)
[2024-01-05 21:49] LABS: ALANINE AMINOTRANSFERASE,ALT 36 U/L (16-63); ALBUMIN 1.8 g/dL (3.4-5.0); ALKALINE PHOSPHATASE 71 U/L (46-116); ANION GAP 14.1 mEq/L (7-13); ASPARTATE AMNIOTRANSFERASE,AST 42 U/L (15-37); BILIRUBIN TOTAL 0.8 mg/dL (0.2-1.0); BLOOD UREA NITROGEN,BUN 24 mg/dL (7-18); BUN/CREATININE RATIO 9.8 (No establ ref range); CALCIUM 8.6 mg/dL (8.5-10.1); CARBON DIOXIDE,CO2 23 mmol/L (21-32); CHLORIDE,CL 106 mmol/L (98-107); CREATININE 2.46 mg/dL (0.70-1.30); GLUCOSE RANDOM 137 mg/dL (70-99); LIPASE 26 U/L (16-77); MAGNESIUM 1.6 mg/dL (1.8-2.4); POTASSIUM,K 4.1 mmol/L (3.5-5.1); PROTEIN TOTAL,TP 5.6 g/dL (6.4-8.2); SODIUM,NA 139 mmol/L (136-145)
[2024-01-05 21:50] LABS: AMPHETAMINES,URINE POSITIVE (NEGATIVE); BARBITURATES,URINE NEGATIVE (NEGATIVE); BENZODIAZEPINE,URINE NEGATIVE (NEGATIVE); MDMA (ECSTASY), URINE NEGATIVE (NEGATIVE); METHADONE,URINE NEGATIVE (NEGATIVE); METHAMPHETAMINES,URINE POSITIVE (NEGATIVE); OPIATES,URINE NEGATIVE (NEGATIVE); OXYCODONE,URINE NEGATIVE (NEGATIVE); PHENCYCLIDINE,URINE NEGATIVE (NEGATIVE); TCA,URINE NEGATIVE (NEGATIVE)
[2024-01-05 21:51] LABS: A/G RATIO 0.47; ESTIMATED GFR 33 mL/min (>=60); ETHANOL BLOOD MEDICAL < 3 mg/dL (0)
[2024-01-05 21:54] LABS: BACTERIA,URINE FEW /HPF (0-FEW/HPF); EPITHELIAL CELLS,URINE FEW /HPF (NOT SEEN); MUCUS,URINE FEW /LPF (NOT SEEN); RBC,URINE 20-30 /HPF (0-5); WBC,URINE 0-5 /HPF (0-5/HPF)
[2024-01-05] MEDS: Lactated Ringers 1,000 ML IV ONE (22:10)
[2024-01-05] MEDS: cefTRIAXone 1 GM Vial IVPUSH ONE (23:42)
[2024-01-05 23:54] VITALS: BP 165/96; PULSE 94
[2024-01-06] MEDS: Doxycycline Monohydrate 100 MG Cap PO ONE (00:01)
[2024-01-07 11:42] LABS: C.TRACHOMATIS BY TMA Negative (Negative); N.GONORRHOEAE BY TMA Negative (Negative); SOURCE URINE
== END 2024-01-06 00:52 | disposition home or self-care (01) ==
LOC: DL.ED 21:07
DX: N45.1 Epididymitis (principal); R10.13 Epigastric pain; F15.129 Other stimulant abuse with intoxication, unspecified; F43.9 Reaction to severe stress, unspecified; R45.1 Restlessness and agitation; I10 Essential (primary) hypertension; E11.9 Type 2 diabetes mellitus without complications; F17.210 Nicotine dependence, cigarettes, uncomplicated; Z79.4 Long term (current) use of insulin; Z79.84 Long term (current) use of oral hypoglycemic drugs; Z79.899 Other long term (current) drug therapy
CPT/HCPCS: 36415; 76870; 80053; 80305; 80307; 81001; 83605; 83690; 83735; 85025; 87491; 87591; 96361; 96374; 96375; 99284; A9270; J0696; J1630; J7120

== ENCOUNTER 2024-02-02 06:25 | Emergency (ER) | payer SELFPAY ==
[2024-02-02] MEDS ORDERED: Sodium Chloride 0.9% 10 ML Syringe FLUSH PRN (06:43)
[2024-02-02 07:07] LABS: BASOPHILS PERCENT AUTO 0.5 % (0.0-1.0); EOSINOPHILS PERCENT AUTO 0.6 % (1.0-3.0); HEMATOCRIT 33.8 % (40.0-54.0); HEMOGLOBIN 11.5 g/dL (14.0-18.0); LYMPHOCYTES PERCENT AUTO 10.9 % (20.5-50.1); MEAN CORPUSCULAR HEMOGLOBIN 30.4 pg (27.0-34.0); MEAN CORPUSCULAR VOLUME 89.4 fL (80-100); MONOCYTES PERCENT AUTO 6.1 % (2-8); NEUTROPHILS PERCENT AUTO 81.9 % (42.2-75.2); PLATELET COUNT,PLT 466 10^3/uL (150-450); RED BLOOD CELL COUNT 3.78 10^6/uL (4.6-6.2); WHITE BLOOD CELL COUNT,WBC 9.7 10^3/uL (5.0-10.0)
[2024-02-02 07:24] LABS: ALANINE AMINOTRANSFERASE,ALT 30 U/L (16-63); ALBUMIN 1.6 g/dL (3.4-5.0); ALKALINE PHOSPHATASE 68 U/L (46-116); ANION GAP 15.5 mEq/L (7-13); ASPARTATE AMNIOTRANSFERASE,AST 23 U/L (15-37); BILIRUBIN TOTAL 0.4 mg/dL (0.2-1.0); BLOOD UREA NITROGEN,BUN 33 mg/dL (7-18); BUN/CREATININE RATIO 12.1 (No establ ref range); CALCIUM 8.1 mg/dL (8.5-10.1); CARBON DIOXIDE,CO2 21 mmol/L (21-32); CHLORIDE,CL 104 mmol/L (98-107); CREATININE 2.73 mg/dL (0.70-1.30); EST CRCL DRUG DOSING (CG) 37.51 mL/min; GLUCOSE RANDOM 348 mg/dL (70-99); LIPASE 53 U/L (16-77); MAGNESIUM 1.9 mg/dL (1.8-2.4); POTASSIUM,K 4.5 mmol/L (3.5-5.1); PROTEIN TOTAL,TP 5.2 g/dL (6.4-8.2); SODIUM,NA 136 mmol/L (136-145)
[2024-02-02] MEDS: Haloperidol Lactate 5 MG/ML SDV IM ONE (07:24)
[2024-02-02] MEDS: Haloperidol Lactate 5 MG/ML SDV IVPUSH ONE ×2 (07:24→07:57)
[2024-02-02 07:27] LABS: HEMOGLOBIN A1C 10.7 % (<5.7); LACTIC ACID 0.7 mmol/L (0.4-2.0)
[2024-02-02] MEDS ORDERED: Flumazenil 0.1 MG/ML 5 ML MDV IVPUSH PRN ×2 (07:30→08:09)
[2024-02-02 07:31] LABS: A/G RATIO 0.44; ESTIMATED GFR 29 mL/min (>=60)
[2024-02-02 07:32] LABS: ETHANOL BLOOD MEDICAL < 3 mg/dL (0)
[2024-02-02] MEDS: LORazepam 2 MG/ML SDV IVPUSH ONE ×3 (07:34→08:12)
[2024-02-02 07:40] LABS: KETONES,BLOOD NEGATIVE
[2024-02-02 07:47] LABS: CREATINE KINASE,CK 578 U/L (39-308)
[2024-02-02] MEDS: hydrALAZINE 20 MG/ML SDV IVPUSH ONE ×3 (08:27→10:02)
[2024-02-02 09:10] LABS: BILIRUBIN,URINE NEGATIVE (NEGATIVE); COLOR,URINE YELLOW (YELLOW); GLUCOSE,URINE 500 (NEGATIVE); KETONES,URINE NEGATIVE (NEGATIVE); LEUKOCYTE ESTERASE,URINE NEGATIVE (NEGATIVE); NITRITE,URINE NEGATIVE (NEGATIVE); OCCULT BLOOD,URINE MODERATE (NEGATIVE); PROTEIN,URINE >=300 (NEGATIVE); UROBILINOGEN,URINE 0.2 mg/dL (0.2-1.0)
[2024-02-02 09:11] LABS: APPEARANCE,URINE SLIGHTLY CLOUDY (CLEAR)
[2024-02-02 09:13] LABS: AMPHETAMINES,URINE NEGATIVE (NEGATIVE); BARBITURATES,URINE NEGATIVE (NEGATIVE); BENZODIAZEPINE,URINE NEGATIVE (NEGATIVE); MDMA (ECSTASY), URINE NEGATIVE (NEGATIVE); METHADONE,URINE NEGATIVE (NEGATIVE); METHAMPHETAMINES,URINE NEGATIVE (NEGATIVE); OPIATES,URINE NEGATIVE (NEGATIVE); OXYCODONE,URINE NEGATIVE (NEGATIVE); PHENCYCLIDINE,URINE NEGATIVE (NEGATIVE); TCA,URINE NEGATIVE (NEGATIVE)
[2024-02-02] MEDS: Sodium Chloride 0.9% 1,000 ML IV ONE (09:13)
[2024-02-02] MEDS: Magnesium Sulfate/Water Premix 2 GM in Premix Bag 1 BAG IV ONE (09:14)
[2024-02-02 09:22] LABS: BACTERIA,URINE FEW /HPF (0-FEW/HPF); EPITHELIAL CELLS,URINE RARE /HPF (NOT SEEN); MUCUS,URINE FEW /LPF (NOT SEEN)
[2024-02-02 09:23] LABS: FINE GRANULAR CASTS,URINE FEW /LPF (NOT SEEN); RBC,URINE 30-40 /HPF (0-5)
[2024-02-02] MEDS: Aspirin 81 MG Tab.Chew PO ONE (10:02)
[2024-02-02 10:27] LABS: CREATINE KINASE,CK 661 U/L (39-308)
[2024-02-02 10:42] VITALS: BP 192/120; PULSE 102
== END 2024-02-02 11:45 | disposition left against medical advice (07) ==
LOC: DL.ED 06:25
DX: T74.01XA Adult neglect or abandonment, confirmed, initial encounter (principal); F15.10 Other stimulant abuse, uncomplicated; R10.84 Generalized abdominal pain; R79.89 Other specified abnormal findings of blood chemistry; I10 Essential (primary) hypertension; E11.9 Type 2 diabetes mellitus without complications; Z79.4 Long term (current) use of insulin; Z79.84 Long term (current) use of oral hypoglycemic drugs; Z79.899 Other long term (current) drug therapy
CPT/HCPCS: 36415; 70450; 71250; 72125; 74176; 80053; 80305; 80307; 81001; 82009; 82550; 83036; 83605; 83690; 83735; 84484; 85025; 96365; 96375; 96376; 99285; A9270; C1758; J0360; J1630; J2060; J3475; J7030

== ENCOUNTER 2024-04-27 18:14 | Emergency (ER) | payer SELFPAY ==
[2024-04-27] MEDS ORDERED: Ketorolac 30 MG/ML SDV IVPUSH ONE (18:21)
[2024-04-27] MEDS: Sodium Chloride 0.9% 1,000 ML IV ONE ×2 (18:32→20:07)
[2024-04-27 18:49] LABS: BASOPHILS PERCENT AUTO 0.5 % (0.0-1.0); HEMATOCRIT 36.4 % (40.0-54.0); HEMOGLOBIN 12.4 g/dL (14.0-18.0); LYMPHOCYTES PERCENT AUTO 8.6 % (20.5-50.1); MEAN CORPUSCULAR HGB CONC 34.1 g/dL (33.0-35.0); MEAN CORPUSCULAR VOLUME 88.1 fL (80-100); MONOCYTES PERCENT AUTO 5.2 % (2-8); NEUTROPHILS PERCENT AUTO 85.7 % (42.2-75.2); PLATELET COUNT,PLT 518 10^3/uL (150-450); RED BLOOD CELL COUNT 4.13 10^6/uL (4.6-6.2); WHITE BLOOD CELL COUNT,WBC 12.9 10^3/uL (5.0-10.0)
[2024-04-27 19:10] LABS: ALANINE AMINOTRANSFERASE,ALT 37 U/L (16-63); ALBUMIN 2.5 g/dL (3.4-5.0); ALKALINE PHOSPHATASE 83 U/L (46-116); ANION GAP 17.6 mEq/L (7-13); ASPARTATE AMNIOTRANSFERASE,AST 46 U/L (15-37); BILIRUBIN TOTAL 0.5 mg/dL (0.2-1.0); BLOOD UREA NITROGEN,BUN 45 mg/dL (7-18); BUN/CREATININE RATIO 10.5 (No establ ref range); CALCIUM 9.2 mg/dL (8.5-10.1); CARBON DIOXIDE,CO2 22 mmol/L (21-32); CHLORIDE,CL 103 mmol/L (98-107); CREATININE 4.29 mg/dL (0.70-1.30); GLUCOSE RANDOM 231 mg/dL (70-99); MAGNESIUM 2.1 mg/dL (1.8-2.4); POTASSIUM,K 4.6 mmol/L (3.5-5.1); PROTEIN TOTAL,TP 7.1 g/dL (6.4-8.2); SODIUM,NA 138 mmol/L (136-145)
[2024-04-27 19:13] LABS: LACTIC ACID 0.7 mmol/L (0.4-2.0)
[2024-04-27 19:14] LABS: A/G RATIO 0.54; C-REACTIVE PROTEIN < 0.50 ng/dL (<=0.50); ESTIMATED GFR 17 mL/min (>=60)
[2024-04-27] MEDS: Haloperidol Lactate 5 MG/ML SDV IVPUSH ONE (20:08)
[2024-04-27] MEDS: cefTRIAXone 2 GM Vial IVPUSH ONE (21:53)
[2024-04-27] MEDS: LORazepam 2 MG/ML SDV IVPUSH ONE (22:17)
[2024-04-27] MEDS: diphenhydrAMINE 50 MG/ML SDV IVPUSH ONE (22:17)
[2024-04-27 22:26] VITALS: BP 156/105; PULSE 98
== END 2024-04-27 22:20 ==
LOC: DL.ED 18:14
DX: F15.10 Other stimulant abuse, uncomplicated (principal); N17.9 Acute kidney failure, unspecified; I10 Essential (primary) hypertension; E11.9 Type 2 diabetes mellitus without complications; N30.00 Acute cystitis without hematuria; Z79.4 Long term (current) use of insulin; Z79.899 Other long term (current) drug therapy
CPT/HCPCS: 36415; 74176; 80053; 83605; 83735; 85025; 86140; 96361; 96374; 96375; 99284; 99285-25; J0696; J1200; J1630; J2060; J7030

== ENCOUNTER 2024-05-10 13:33 | Emergency (ER) | payer SELFPAY ==
[2024-05-10 13:33] VITALS: BP 150/110; PULSE 105
[2024-05-10] MEDS: LORazepam 2 MG/ML SDV IVPUSH ONE (13:52)
[2024-05-10 13:58] LABS: HEMATOCRIT 30.6 % (40.0-54.0); RED BLOOD CELL COUNT 3.35 10^6/uL (4.6-6.2); WHITE BLOOD CELL COUNT,WBC 12.5 10^3/uL (5.0-10.0)
[2024-05-10 13:59] LABS: BASOPHILS PERCENT AUTO 0.7 % (0.0-1.0); LYMPHOCYTES PERCENT AUTO 6.2 % (20.5-50.1); MEAN CORPUSCULAR HEMOGLOBIN 29.9 pg (27.0-34.0); MEAN CORPUSCULAR HGB CONC 32.7 g/dL (33.0-35.0); MEAN CORPUSCULAR VOLUME 91.3 fL (80-100); MONOCYTES PERCENT AUTO 5.7 % (2-8); NEUTROPHILS PERCENT AUTO 87.4 % (42.2-75.2); PLATELET COUNT,PLT 512 10^3/uL (150-450)
[2024-05-10 14:15] LABS: ALBUMIN 2.3 g/dL (3.4-5.0); BILIRUBIN TOTAL 0.6 mg/dL (0.2-1.0); BUN/CREATININE RATIO 16.8 (No establ ref range); CALCIUM 8.9 mg/dL (8.5-10.1); CREATININE 3.94 mg/dL (0.70-1.30); EST CRCL DRUG DOSING (CG) 25.99 mL/min; PROTEIN TOTAL,TP 6.5 g/dL (6.4-8.2)
[2024-05-10 14:18] LABS: A/G RATIO 0.55; ANION GAP 22.7 mEq/L (7-13)
[2024-05-10 14:19] LABS: POTASSIUM,K 5.7 mmol/L (3.5-5.1)
[2024-05-10 15:35] LABS: ANION GAP 18.9 mEq/L (7-13); CALCIUM 8.6 mg/dL (8.5-10.1); CREATININE 3.98 mg/dL (0.70-1.30); EST CRCL DRUG DOSING (CG) 25.73 mL/min; POTASSIUM,K 4.9 mmol/L (3.5-5.1)
== END 2024-05-10 17:00 | disposition home or self-care (01) ==
LOC: DL.ED 13:33
DX: F19.10 Other psychoactive substance abuse, uncomplicated (principal); R45.1 Restlessness and agitation; I12.0 Hypertensive chronic kidney disease with stage 5 chronic kidney disease or end stage renal disease; N18.6 End stage renal disease; K21.9 Gastro-esophageal reflux disease without esophagitis; E11.22 Type 2 diabetes mellitus with diabetic chronic kidney disease; Z79.4 Long term (current) use of insulin; Z79.84 Long term (current) use of oral hypoglycemic drugs; Z79.899 Other long term (current) drug therapy
CPT/HCPCS: 36415; 80048; 80053; 82947; 85025; 93005; 93010; 96374; 99284; J2060

== ENCOUNTER 2025-01-07 06:30 | Inpatient (IN) | payer SELFPAY ==
[2025-01-07] MEDS ORDERED: Sodium Chloride 0.9% 10 ML Syringe FLUSH PRN (06:34)
[2025-01-07 07:08] LABS: PLATELET COUNT,PLT 423 10^3/uL (150-450); RED BLOOD CELL COUNT 3.72 10^6/uL (4.6-6.2); WHITE BLOOD CELL COUNT,WBC 11.8 10^3/uL (5.0-10.0)
[2025-01-07 07:27] LABS: INR 0.9 (0.9-1.2); PTT,PARTIAL THROMBOPLSTIN TIME 23.6 SEC (22.0-34.0)
[2025-01-07 07:35] LABS: LACTIC ACID 2.4 mmol/L (0.4-2.0)
[2025-01-07 07:40] LABS: A/G RATIO 0.8; ALANINE AMINOTRANSFERASE,ALT 17 U/L (16-63); ASPARTATE AMNIOTRANSFERASE,AST 17 U/L (15-37); BILIRUBIN TOTAL 0.9 mg/dL (0.2-1.0); BLOOD UREA NITROGEN,BUN 89 mg/dL (7-18); CARBON DIOXIDE,CO2 22 mmol/L (21-32); PROTEIN TOTAL,TP 7.9 g/dL (6.4-8.2)
[2025-01-07 07:48] LABS: CREATININE 9.42 mg/dL (0.70-1.30); ESTIMATED GFR 7 mL/min (>=60); ETHANOL BLOOD MEDICAL < 3 mg/dL (0)
[2025-01-07 07:49] LABS: CHLORIDE,CL 87 mmol/L (98-107); POTASSIUM,K 3.2 mmol/L (3.5-5.1); SODIUM,NA 135 mmol/L (136-145)
[2025-01-07 07:51] LABS: GLUCOSE RANDOM 727 mg/dL (70-99)
[2025-01-07 07:58] LABS: LYMPHOCYTES PERCENT MAN 5 % (20-50); MONOCYTES PERCENT MAN 4 % (2-8); SEG NEUTROPHILS PERCENT MAN 91 % (42-75)
[2025-01-07] MEDS ORDERED: 50% Dextrose in Water 50 ML Syringe IVPUSH PRN ×3 (08:09→12:10)
[2025-01-07] MEDS: NS with KCl 40mEq 1,000 ML IV SCH (08:27)
[2025-01-07] MEDS: Lactated Ringers 2,000 ML IV ONE (08:27)
[2025-01-07 08:28] LABS: O2 DELIVERY DEVICE ROOM AIR
[2025-01-07 08:41] LABS: BASE EXCESS VENOUS -0.7 mmol/l ((-2)-(+3)); BICARBONATE,VENOUS 25 mmol/l (19-25); O2 SATURATION VENOUS 78.6 % (60-80); PCO2 VENOUS 47 mmHg (41-51); PH,VENOUS 7.34 (7.31-7.41); PO2 VENOUS 49 mmHg (35-42)
[2025-01-07 08:51] LABS: BLOOD UREA NITROGEN,BUN 88 mg/dL (7-18); CARBON DIOXIDE,CO2 25 mmol/L (21-32); POTASSIUM,K 3.0 mmol/L (3.5-5.1)
[2025-01-07 08:56] LABS: CHLORIDE,CL 85 mmol/L (98-107); CREATININE 8.92 mg/dL (0.70-1.30); ESTIMATED GFR 7 mL/min (>=60); SODIUM,NA 130 mmol/L (136-145)
[2025-01-07 08:58] LABS: GLUCOSE RANDOM 684 mg/dL (70-99)
[2025-01-07 09:41] LABS: APPEARANCE,URINE CLEAR (CLEAR); GLUCOSE,URINE 500 (NEGATIVE); OCCULT BLOOD,URINE MODERATE (NEGATIVE)
[2025-01-07 09:44] LABS: AMPHETAMINES,URINE NEGATIVE (NEGATIVE); BARBITURATES,URINE NEGATIVE (NEGATIVE); MDMA (ECSTASY), URINE NEGATIVE (NEGATIVE); METHAMPHETAMINES,URINE NEGATIVE (NEGATIVE); OPIATES,URINE NEGATIVE (NEGATIVE); OXYCODONE,URINE NEGATIVE (NEGATIVE); PHENCYCLIDINE,URINE NEGATIVE (NEGATIVE); TCA,URINE NEGATIVE (NEGATIVE)
[2025-01-07 10:10] LABS: EPITHELIAL CELLS,URINE RARE /HPF (NOT SEEN)
[2025-01-07 11:02] LABS: BLOOD UREA NITROGEN,BUN 85 mg/dL (7-18); CARBON DIOXIDE,CO2 27 mmol/L (21-32); POTASSIUM,K 3.1 mmol/L (3.5-5.1)
[2025-01-07 11:05] LABS: CHLORIDE,CL 93 mmol/L (98-107); SODIUM,NA 135 mmol/L (136-145)
[2025-01-07 11:06] LABS: GLUCOSE RANDOM 517 mg/dL (70-99)
[2025-01-07 11:07] LABS: CREATININE 8.46 mg/dL (0.70-1.30); ESTIMATED GFR 8 mL/min (>=60)
[2025-01-07] MEDS: Potassium Chloride 10 MEQ Tab.ER PO ONE ×2 (12:07→20:04)
[2025-01-07] MEDS: Insulin Glarg,Human.Rec.Analog 100 Unit/ML 10 ML Vial SUBCUT ONE (12:14)
[2025-01-07] MEDS ORDERED: Metoprolol Tartrate 5 MG/5 ML SDV IVPUSH PRN (13:31)
[2025-01-07] MEDS ORDERED: Ondansetron 4 MG/2 ML SDV IVPUSH PRN (13:31)
[2025-01-07] MEDS ORDERED: Magnesium Hydroxide 400 MG/5 ML Susp 30 ML Cup PO PRN (13:31)
[2025-01-07] MEDS ORDERED: Acetaminophen/HYDROcodone 325-5 MG Tab PO PRN (13:31)
[2025-01-07] MEDS ORDERED: Sennosides/Docusate Sodium 50-8.6 MG Tab PO PRN (13:31)
[2025-01-07] MEDS ORDERED: hydrALAZINE 20 MG/ML SDV IVPUSH PRN (13:31)
[2025-01-07 14:10] LABS: BLOOD UREA NITROGEN,BUN 83 mg/dL (7-18); CARBON DIOXIDE,CO2 29 mmol/L (21-32); CHLORIDE,CL 97 mmol/L (98-107); CREATININE 8.23 mg/dL (0.70-1.30); GLUCOSE RANDOM 261 mg/dL (70-99); PHOSPHORUS 5.2 mg/dL (2.6-4.7); POTASSIUM,K 3.1 mmol/L (3.5-5.1); SODIUM,NA 138 mmol/L (136-145)
[2025-01-07 14:11] LABS: ESTIMATED GFR 8 mL/min (>=60)
[2025-01-07] MEDS: 50% Dextrose in Water 50 ML Syringe IVPUSH PRN (16:59)
[2025-01-07 18:00] LABS: BLOOD UREA NITROGEN,BUN 78.0 mg/dL (7-18); CARBON DIOXIDE,CO2 28.0 mmol/L (21-32); CHLORIDE,CL 100.0 mmol/L (98-107); CREATININE 7.73 mg/dL (0.70-1.30); EST CRCL DRUG DOSING (CG) 12.7 mL/min; GLUCOSE RANDOM 89.0 mg/dL (70-99); POTASSIUM,K 2.5 mmol/L (3.5-5.1); SODIUM,NA 140.0 mmol/L (136-145)
[2025-01-07 18:01] LABS: ESTIMATED GFR 8.0 mL/min (>=60)
[2025-01-07] MEDS: Insulin Regular, Human 100 Units/ML 10 ML Vial SUBCUT ONE (18:08)
[2025-01-07] MEDS: Potassium Chloride 20 MEQ in Premix Bag 1 BAG IV ONE (20:04)
[2025-01-07 21:58] LABS: BLOOD UREA NITROGEN,BUN 75.0 mg/dL (7-18); CARBON DIOXIDE,CO2 29.0 mmol/L (21-32); CHLORIDE,CL 101.0 mmol/L (98-107); CREATININE 7.42 mg/dL (0.70-1.30); EST CRCL DRUG DOSING (CG) 13.23 mL/min; GLUCOSE RANDOM 80.0 mg/dL (70-99); POTASSIUM,K 3.1 mmol/L (3.5-5.1); SODIUM,NA 140.0 mmol/L (136-145)
[2025-01-07 22:07] LABS: ESTIMATED GFR 9.0 mL/min (>=60)
[2025-01-08] MEDS: Insulin Glarg,Human.Rec.Analog 100 Unit/ML 10 ML Vial SUBCUT SCH (00:55)
[2025-01-08 02:19] LABS: BLOOD UREA NITROGEN,BUN 68.0 mg/dL (7-18); CARBON DIOXIDE,CO2 27.0 mmol/L (21-32); CHLORIDE,CL 102.0 mmol/L (98-107); CREATININE 7.07 mg/dL (0.70-1.30); EST CRCL DRUG DOSING (CG) 13.89 mL/min; ESTIMATED GFR 9.0 mL/min (>=60); GLUCOSE RANDOM 87.0 mg/dL (70-99); POTASSIUM,K 3.2 mmol/L (3.5-5.1); SODIUM,NA 140.0 mmol/L (136-145)
[2025-01-08] MEDS ORDERED: 50% Dextrose in Water 50 ML Syringe IVPUSH PRN (05:32)
[2025-01-08] MEDS: Insulin Glarg,Human.Rec.Analog 100 Unit/ML 10 ML Vial SUBCUT ONE (05:41)
[2025-01-08 06:41] LABS: BASOPHILS PERCENT AUTO 0.6 % (0.0-1.0); EOSINOPHILS PERCENT AUTO 1.8 % (1.0-3.0); LYMPHOCYTES PERCENT AUTO 13.7 % (20.5-50.1); MONOCYTES PERCENT AUTO 6.8 % (2-8); NEUTROPHILS PERCENT AUTO 77.1 % (42.2-75.2); PLATELET COUNT,PLT 357 10^3/uL (150-450); RED BLOOD CELL COUNT 3.22 10^6/uL (4.6-6.2); WHITE BLOOD CELL COUNT,WBC 7.8 10^3/uL (5.0-10.0)
[2025-01-08 07:03] LABS: BLOOD UREA NITROGEN,BUN 60.0 mg/dL (7-18); CARBON DIOXIDE,CO2 25.0 mmol/L (21-32); CHLORIDE,CL 104.0 mmol/L (98-107); CREATININE 6.69 mg/dL (0.70-1.30); EST CRCL DRUG DOSING (CG) 14.68 mL/min; GLUCOSE RANDOM 121.0 mg/dL (70-99); PHOSPHORUS 4.0 mg/dL (2.6-4.7); POTASSIUM,K 3.1 mmol/L (3.5-5.1); SODIUM,NA 141.0 mmol/L (136-145)
[2025-01-08 07:05] LABS: ESTIMATED GFR 10.0 mL/min (>=60)
[2025-01-08] MEDS: Potassium Chloride 10 MEQ Tab.ER PO SCH (09:10)
[2025-01-08 09:30] VITALS: BP 127/96; PULSE 77
[2025-01-08 09:53] LABS: BLOOD UREA NITROGEN,BUN 59.0 mg/dL (7-18); CARBON DIOXIDE,CO2 26.0 mmol/L (21-32); CHLORIDE,CL 105.0 mmol/L (98-107); CREATININE 6.6 mg/dL (0.70-1.30); EST CRCL DRUG DOSING (CG) 14.88 mL/min; ESTIMATED GFR 10.0 mL/min (>=60); GLUCOSE RANDOM 134.0 mg/dL (70-99); POTASSIUM,K 3.3 mmol/L (3.5-5.1); SODIUM,NA 141.0 mmol/L (136-145)
[2025-01-08] MEDS ORDERED: Potassium Chloride 10 MEQ Tab.ER PO ONE (11:00)
[2025-01-08] MEDS ORDERED: Insulin Glarg,Human.Rec.Analog 100 Unit/ML 10 ML Vial SUBCUT SCH (21:00)
== END 2025-01-08 10:55 | disposition home or self-care (01) | DRG 637 ==
LOC: DL.ED 06:30 → DL.MS 13:28
PROVIDERS: ADMIT Internal Medicine; ATTEND Internal Medicine
DX: E11.10 Type 2 diabetes mellitus with ketoacidosis without coma (principal); K85.20 Alcohol induced acute pancreatitis without necrosis or infection; N17.9 Acute kidney failure, unspecified; E87.1 Hypo-osmolality and hyponatremia; M62.82 Rhabdomyolysis; R65.10 Systemic inflammatory response syndrome (SIRS) of non-infectious origin without acute organ dysfunction; I12.0 Hypertensive chronic kidney disease with stage 5 chronic kidney disease or end stage renal disease; N18.5 Chronic kidney disease, stage 5; D72.829 Elevated white blood cell count, unspecified; E87.6 Hypokalemia; E87.8 Other disorders of electrolyte and fluid balance, not elsewhere classified; E11.22 Type 2 diabetes mellitus with diabetic chronic kidney disease; K21.9 Gastro-esophageal reflux disease without esophagitis; F41.9 Anxiety disorder, unspecified; E83.42 Hypomagnesemia; R80.9 Proteinuria, unspecified; H54.7 Unspecified visual loss; Z87.891 Personal history of nicotine dependence; Z79.4 Long term (current) use of insulin; Z79.84 Long term (current) use of oral hypoglycemic drugs; Z79.899 Other long term (current) drug therapy; Z79.1 Long term (current) use of non-steroidal anti-inflammatories (NSAID)
CPT/HCPCS: 36415; 80048; 80053; 80305-QW; 80307; 81001; 82009; 82550; 82803; 82947; 83036; 83605; 83690; 83735; 84100; 84145; 85025; 85610; 85730; 86140; 87040; 96361; 96365; 96366; 96372; 99223; 99238; 99284-25; A9270-GY; J1630; J1815-GY; J2470; J3480; J7030; J7042; J7120

== ENCOUNTER 2025-01-08 16:45 | Emergency (ER) | payer SELFPAY ==
[2025-01-08] MEDS: diphenhydrAMINE 50 MG/ML SDV IM ONE (17:15)
[2025-01-08] MEDS: LORazepam 2 MG/ML SDV IM ONE (17:15)
[2025-01-08 17:41] LABS: PLATELET COUNT,PLT 356 10^3/uL (150-450); RED BLOOD CELL COUNT 3.48 10^6/uL (4.6-6.2); WHITE BLOOD CELL COUNT,WBC 13.4 10^3/uL (5.0-10.0)
[2025-01-08 17:55] LABS: LYMPHOCYTES PERCENT MAN 5 % (20-50); MONOCYTES PERCENT MAN 4 % (2-8); SEG NEUTROPHILS PERCENT MAN 91 % (42-75)
[2025-01-08 18:00] LABS: ALANINE AMINOTRANSFERASE,ALT 20 U/L (16-63); ASPARTATE AMNIOTRANSFERASE,AST 29 U/L (15-37); BILIRUBIN TOTAL 0.3 mg/dL (0.2-1.0); BLOOD UREA NITROGEN,BUN 51 mg/dL (7-18); CARBON DIOXIDE,CO2 23 mmol/L (21-32); CHLORIDE,CL 100 mmol/L (98-107); EST CRCL DRUG DOSING (CG) 15.04 mL/min; GLUCOSE RANDOM 239 mg/dL (70-99); POTASSIUM,K 4.4 mmol/L (3.5-5.1); PROTEIN TOTAL,TP 7.3 g/dL (6.4-8.2); SODIUM,NA 135 mmol/L (136-145)
[2025-01-08 18:02] LABS: A/G RATIO 0.74; CREATININE 6.74 mg/dL (0.70-1.30); ESTIMATED GFR 10 mL/min (>=60); ETHANOL BLOOD MEDICAL < 3 mg/dL (0)
[2025-01-08 18:28] VITALS: PULSE 80
[2025-01-08 19:42] VITALS: BP 150/97
== END 2025-01-08 19:36 | disposition home or self-care (01) ==
LOC: DL.ED 16:45
DX: M62.831 Muscle spasm of calf (principal); I10 Essential (primary) hypertension; E11.9 Type 2 diabetes mellitus without complications; K21.9 Gastro-esophageal reflux disease without esophagitis; Z79.4 Long term (current) use of insulin; Z79.899 Other long term (current) drug therapy; Z79.84 Long term (current) use of oral hypoglycemic drugs
CPT/HCPCS: 36415; 80053; 80307; 83735; 85025; 96372; 99284; J1200; J1630; J2060